=== PATIENT | female | born 1960 | race Caucasian/White ===

== ENCOUNTER 2023-04-20 07:06 | Outpatient (RCR) | payer OTHER, SELFPAY | END 2023-05-07 08:12 | disposition home or self-care (01) | LOC: CR 07:06 | PROVIDERS: Visit Provider Internal Medicine Cardiovascular Disease | DX: I25.10 Atherosclerotic heart disease of native coronary artery without angina pectoris (principal); Z98.61 Coronary angioplasty status ==

== ENCOUNTER 2024-06-09 17:20 | Observation (INO) | payer OTHER, SELFPAY ==
[2024-06-09] VITALS (12 sets, daily range): BP systolic 113–180; BP diastolic 73–97; PULSE 65–88; TEMP 36.4–36.6; O2SAT 94–98; BMI 61.1; BMI 61.0
--- NOTE | 2024-06-09 17:43 | ECG_ITS ---
[facility] Test Date: 2024-06-09 Pat Name: TABBY VENCES Department: Room: - Gender: Female [employer] Assessment: : 1960 Requested By: [id number] Order Number: [id number] Reading MD: JOSELITO BRUNO Measurements Intervals [place] Rate: 83 P: 26 VA: 214 QRS: 42 QRSD: 86 T: 69 QT: 384 QTc: 424 Interpretive Statements 1100 Sinus rhythm 1570 with occasional ventricular premature complexes 2231 First degree AV block 4068 Nonspecific Twave abnormality 8102 Low QRS voltage in chest leads 9150 abnormal ECG Electronically Signed On 06-11-2024 7:39:18 EST by JOSELITO BRUNO
--- OUTSIDE RECORDS SUMMARY | 2024-06-09 17:43 | XMS_ITS | CCD ---
Author Organization [facility] Care Team Providers Care Equal Opportunity Counselor Name Role Phone PATRICK YOUSIF Admitting Unavailable PATRICK YOUSIF Attending Unavailable ANABEL MEJIA Referring Unavailable ANABEL MEJIA Primary Care Unavailable [place] Procedure Practitioner Unavailab PATRICK Mullins Surgeon Unavailable JACOB, DEANNA Admitting Unavailable JACOBDEANNA GUSMAN Attending Unavailable MISC, DR GARRIDO Primary Care Unavailable KATIE JAVED Admitting Unavailable KATIE JAVED Consulting Unavailable KATIE JAVED Attending Unavailable TONAC, DR GARRIDO Primary Care Unavailable SALO, DR BRODIE Mcmahon Admitting Unavailable SALO, DR BRODIE Mcmahon Consulting Unavailable SALO, DR BRODIE Mcmahon Attending Unavailable [facility] Primary Care Unava ilMaycol Muller Consulting Unavailable MISC, DR GARRIDO Primary Care Unavailable JACOBDEANNA GUSMAN Admitting Unavailable JACOBDEANNA GUSMAN Attending Unavailable EBRAHEIMESTER Admitting Unavailable EBRAHEIM, ESTER Attending Unavailable EBDESEAN STEELIL Surgeon Unavailable MICHELLE BLACK Primary Care Unavailable MICHELLE BLACK Referring Unavailable [place] Procedure Practitioner Unavailab MD Ru Fabian Jr Emergency Provider DO Jesse Lombardo Admit Provider DO Jesse Lombardo Attending Provider LUKE Blake Primary Care Provider Milton Blake Primary Care Unavailable Jesse Lombardo Attending Unavailable Jesse Lombardo Admitting Unavailable [place] MANAGER PACKAGING-Milton MULLEN Primary Care Provid er MILTON BLAKE Referring Unavailable MILTON BLAKE Primary Care Unavailable MILTON BLAKE Attending Unavailable MILTON BLAKE Referring Unavailable MILTON BLAKE Primary Care Unavailable MILTON BLAKE Attending Unavailable MILTON BLAKE Referring Unavailable MILTON BLAKE Primary Care Unavailable MILTON BLAKE Attending Unavailable MILTON BLAKE Referring Unavailable MILTON BLAKE Primary Care Unavailable Allergies Allergy Classification Reported Allergen(s) Allergy Type Date of Onset Reaction(s) Facility (2 sources) Aloe Extract Drug Allergy 5 [facility] Repository (3 sources) diphenhydrAMINE ; Translations: [BENADRYL] Drug Allergy 3 [facility] Repository (6 sources) Latex; Translations: [LATEX] Drug allergy (disorder) 4 Difficulty Breathing [facility] Repository (1 source) hep b vaccine; Translations: [Unknown] Propensity to adverse reactions (disorder) 4 [facility] Repository (1 source) Garlic preparation Drug Allergy [address] [facility] Repository (3 sources) strawberry allergenic extract; Translations: [STRAWBERRY] Drug Allergy [address] [facility] Repository (1 source) Hepatitis B Virus Vaccine,Recb Drug allergy (disorder) [address] [facility] Repository (13 sources) HEPATITIS B VIRUS VACCINE; Translations: [HEPATITIS B VIRUS VACCINE] Propensity to adverse reactions (disorder) 0 Anaphylaxis [facility] Repository (12 sources) diphenhydrAMINE ; Translations: [diphenhydramin e] Drug Allergy 6 Anaphylaxis [facility] (1 source) Latex Drug allergy (disorder) 3 [facility] Repository (11 sources) Aloe vera preparation; Translations: [ALOE VERA] Drug Allergy [address] [facility] (10 sources) Coconut Oil; Translations: [COCONUT OIL] Drug Allergy 1 [facility] (10 sources) Hepatitis B Surface Antigen Vaccine; Translations: [HEPATITIS B VIRUS VACCINE, RECOMBINANT] Drug Allergy 6 [facility] (8 sources) Latex Propensity to adverse reactions to drug 6 Shortness Of Breath [facility] (10 sources) Silver Nitrate; Translations: [SILVER NITRATE] Drug Allergy 1 [facility] (8 sources) strawberry allergenic extract Drug Allergy 0 Shortness Of Breath [facility] (9 sources) diphenhydrAMINE ; Translations: [DIPHENHYDRAMIN E HCL] Drug Allergy 5 Other (See Comments), Anaphylaxis [facility] (9 sources) Hepatitis B Surface Antigen Vaccine; Translations: [HEPATITIS B VACC-CPG 1018 (PF)] Drug Allergy 4 Other (See Comments) [facility] (5 sources) Ethinyl Estradiol / Levonorgestrel; Translations: [LEVONORGESTREL -ETHINYL ESTRAD] Drug Allergy 4 [facility] Medications Current Medications Medication Drug Class(es) Dates Sig (Normalized) Sig (Original) [id number] 200 actuat albuterol 0.09 mg/actuat metered dose inhaler (3 sources) beta2-Adrenergic Agonist Start: 08-10-2023 End: 09-09-2023 take 2 puff(s) by inhalation every six hours as needed for wheezing albuterol (PROVENTIL HFA;VENTOLIN HFA) 90 mcg/actuation inhaler Indications: Upper respiratory tract infection, unspecified type Inhale 2 puffs every 6 (six) hours as needed for wheezing for up to 30 days. 18 g 0 08/10/2023 09/09/2023 Active aspirin 81 mg oral tablet (11 sources) Platelet Aggregation Inhibitor, Nonsteroidal Anti-inflammatory Drug Start: 02-03-2023 take 81 mg by mouth once daily Aspirin Active 81 MG PO Daily February 03, 2023 12:00am End: 08-10-2023 take 1 tablet by mouth in the morning aspirin 81 mg Take 1 tablet (81 mg total) by mouth in the morning. Active atorvastatin 40 mg oral tablet (8 sources) HMG-CoA Reductase Inhibitor Start: 02-04-2023 End: 10-04-2023 take 1 tablet by mouth in the morning atorvastatin (LIPITOR) 40 mg tablet Indications: Mixed hyperlipidemia Take 1 tablet (40 mg total) by mouth in the morning. 90 tablet 1 10/04/2023 Active azithromycin 250 mg oral tablet (1 source) Macrolide Antimicrobial Start: 08-10-2023 End: 08-14-2023 azithromycin (ZITHROMAX) 250 mg tablet Indications: Acute non-recurrent maxillary sinusitis Take 2 tablets the first day, then 1 tablet daily for 4 days. 6 tablet 0 08/10/2023 08/14/2023 Active blood-glucose meter (glucose monitoring kit) kit (8 sources) Start: 03-03-2023 blood-glucose meter (glucose monitoring kit) kit Indications: Type 2 diabetes mellitus with hyperglycemia, without long-term current use of insulin ([facility]) Use as instructed 1 each 03/03/2023 Active Start: 03-03-2023 blood-glucose meter (glucose monitoring kit) kit Indications: Type 2 diabetes mellitus with hyperglycemia, without long-term current use of insulin ([facility]) Use as instructed 1 each 0 03/03/2023 Active cholecalciferol 0.05 mg oral tablet (1 source) Vitamin D Start: 02-03-2023 take 1 tablet by mouth once daily Cholecalciferol (Vitamin D3) (Vitamin D3) 50 mcg (2,000 unit) Tablet Active 50 MCG PO Daily February 03, 2023 12:00am cholecalciferol, vitamin D3, (VITAMIN D3 ORAL) (5 sources) take 25 ug by mouth once daily cholecalciferol, vitamin D3, (VITAMIN D3 ORAL) Take 25 mcg by mouth daily. 0 Active fexofenadine hydrochloride 30 mg oral tablet (9 sources) Histamine-1 Receptor Antagonist Start: 02-03-2023 take 30 mg by mouth once daily Fexofenadine Active 30 MG PO 1 time daily February 03, 2023 12:00am take 1 tablet by mouth in the mo rning fexofenadine (KAREN) 180 mg tablet Take 1 tablet (180 mg total) by mouth in the morning. Active furosemide 40 mg oral tablet (14 sources) Loop Diuretic Start: 04-10-2024 take 1 tablet by mouth once daily furosemide (LASIX) 40 mg tablet Indications: Bilateral lower extremity edema TAKE 1 TABLET BY MOUTH DAILY 90 tablet 1 04/10/2024 Active Start: 02-03-2023 End: 10-04-2023 take 1 tablet by mouth once daily furosemide (LASIX) 40 mg tablet Indications: Bilateral lower extremity edema TAKE 1 TABLET BY MOUTH DAILY 90 tablet 1 10/04/2023 Active gabapentin 100 mg oral capsule (4 sources) Anti-epileptic Agent Start: 06-06-2024 take 1 capsule by mouth three times daily gabapentin (NEURONTIN) 100 mg capsule Indications: Neuropathy TAKE 1 CAPSULE BY MOUTH THREE TIMES DAILY 270 capsule 1 06/06/2024 Active Start: 04-10-2024 End: 06-06-2024 take 1 capsule by mouth three times daily gabapentin (NEURONTIN) 100 mg capsule Indications: Neuropathy Take 1 capsule (100 mg total) by mouth 3 (three) times a day. 90 capsule 04/10/2024 06/06/2024 Discontinued hydrOXYzine hydrochloride 10 mg oral tablet (4 sources) Antihistamine Start: 04-10-2024 take 1 tablet by mouth every eight hours as needed hydrOXYzine (ATARAX) 10 mg tablet Indications: Itching Take 1 tablet (10 mg total) by mouth every 8 (eight) hours as needed for itching. 90 tablet 1 04/10/2024 Active Start: 10-04-2023 take 1 tablet by catherine th every eight hours as needed hydrOXYzine (ATARAX) 10 mg tablet Indications: Itching Take 1 tablet (10 mg total) by mouth every 8 (eight) hours as needed for itching. 30 tablet 1 10/04/2023 Active isopropyl alcohol 0.7 ml/ml medicated pad (8 sources) Start: 03-03-2023 alcohol swabs pads, medicated Indications: Type 2 diabetes mellitus with hyperglycemia, without long-term current use of insulin ([facility]) Apply 1 Pad topically in the morning and 1 Pad before bedtime. 100 each 3 03/03/2023 Active losartan potassium 25 mg oral tablet (11 sources) Angiotensin 2 Receptor Fouzia Start: 04-10-2024 take 1 tablet by mouth in the morning losartan (COZAAR) 25 mg tablet Indications: Benign essential HTN Take 1 tablet (25 mg total) by mouth in the morning. 90 tablet 04/10/2024 Active Start: 02-04-2023 End: 10-04-2023 take 1 tablet by mouth in the morning losartan (COZAAR) 25 mg tablet Indications: Benign essential HTN Take 1 tablet (25 mg total) by mouth in the morning. 90 tablet 0 10/04/2023 Active meloxicam 15 mg oral tablet (11 sources) Nonsteroidal Anti-inflammatory Drug Start: 04-10-2024 take 1 tablet by mouth in the morning meloxicam (MOBIC) 15 mg tablet Indications: Osteoarthritis of multiple joints, unspecified osteoarthritis type Take 1 tablet (15 mg total) by mouth in the morning. 90 tablet 1 04/10/2024 Active Start: 12-21-2022 End: 10-04-2023 take 1 tablet by mouth in the morning meloxicam (MOBIC) 15 mg tablet Indications: Osteoarthritis of multiple joints, unspecified osteoarthritis type Take 1 tablet (15 mg total) by mouth in the morning. 90 tablet 0 10/04/2023 Active 24 hr metoprolol succinate 25 mg extended release oral tablet (11 sources) beta-Adrenergic Fouzia Start: 04-10-2024 take 1 tablet by mouth every twenty-four hours in the morning metoprolol succinate XL (TOPROL XL) 25 mg 24 hr tablet Indications: Benign essential HTN TAKE 1 TABLET BY MOUTH IN THE MORNING 90 tablet 1 04/10/2024 Active Start: 03-29-2023 End: 10-04-2023 take 1 tablet by mouth every twenty-four hours in the morning metoprolol succinate XL (TOPROL XL) 25 mg 24 hr tablet Indications: Benign essential HTN TAKE 1 TABLET BY MOUTH IN THE MORNING 90 tablet 0 10/04/2023 Active Start: 02-03-2023 take 25 mg by mouth once daily Metoprolol Succinate Active 25 MG PO 1 time daily February 03, 2023 12:00am nitroglycerin 0.4 mg sublingual tablet (9 sources) Nitrate Vasodilator Start: 02-04-2023 nitroglyce rin (NITROSTAT) 0.4 MG SL tablet 1 tablet (0.4 mg total). 02/04/2023 Active Start: 02-04-2023 Nitroglycerin Active 0.4 MG SUBLINGUAL Q5M February 04, 2023 12:00am potassium chloride 10 meq extended release oral tablet (11 sources) Start: 04-10-2024 potassium chlo ride (K-TAB,KLOR-CON) 10 MEQ CR tablet Indications: Benign essential HTN , Hypokalemia Take 1 tablet (10 mEq total) by mouth in the morning. 90 tablet 2 04/10/2024 Active Start: 04-08-2023 End: 08-01-2023 potassium chloride (K-TAB,KL OR-CON) 10 MEQ CR tablet Indications: Benign essential HTN , Hypokalemia TAKE 1 TABLET BY MOUTH EVERY MORNING 90 tablet 0 08/01/2023 Active Start: 02-03-2023 End: 02-04-2023 take 10 mEq by mouth once daily Potassium Chloride Active 10 MEQ PO 1 time daily February 04, 2023 4:32pm rosuvastatin calcium 10 mg oral tablet (4 sources) HMG-CoA Reductase Inhibitor Start: 04-10-2024 take 1 tablet by mouth once daily rosuvastatin (CRESTOR) 10 mg tablet Indications: Mixed hyperlipidemia Take 1 tablet (10 mg total) by mouth nightly. 90 tablet 1 04/10/2024 Active Start: 02-03-2023 End: 02-04-2023 take 20 mg by mouth once daily Rosuvastatin Discontinu ed 20 MG PO 1 time daily February 03, 2023 12:00am February 04, 2023 4:59pm semaglutide (OZEMPIC) 0.25 m g or 0.5 mg (2 mg/3 mL) pen injector (7 sources) Start: 04-26-2024 semaglutide (O ZEMPIC) 0.25 mg or 0.5 mg (2 mg/3 mL) pen injector Indications: Type 2 diabetes mellitus with hyperglycemia, without long-term current use of insulin ([facility]) Inject 0.5 mg under the skin every 7 days. 12 mL 3 04/26/2024 Active Start: 10-04-2023 End: 04-26-2024 semaglutide (OZEMPIC) 0.25 m g or 0.5 mg (2 mg/3 mL) pen injector Indications: Type 2 diabetes mellitus with hyperglycemia, without long-term current use of insulin ([facility]) Inject 0.5 mg under the skin every 7 days. 12 mL 3 10/04/2023 04/26/2024 Discontinued (Reorder) Start: 10-04-2023 semaglutide (O ZEMPIC) 0.25 mg or 0.5 mg (2 mg/3 mL) pen injector Indications: Type 2 diabetes mellitus with hyperglycemia, without long-term current use of insulin ([facility]) Inject 0.5 mg under the skin every 7 days. 12 mL 3 10/04/2023 Active Start: 10-04-2023 End: 10-04-2023 semaglutide (OZEMPIC) 0.25 m g or 0.5 mg (2 mg/3 mL) pen injector Indications: Type 2 diabetes mellitus with hyperglycemia, without long-term current use of insulin ([facility]) Inject 0.5 mg under the skin every 7 days. 3 mL 1 10/04/2023 10/04/2023 Discontinued (Reorder) ticagrelor 90 mg oral tablet (6 sources) Start: 02-04-2023 take 1 tablet by mouth in the morning, then take 1 tablet by mouth at bedtime BRILINTA 90 mg tablet Take 1 tablet (90 mg total) by mouth in the morning and 1 tablet (90 mg total) before bedtime. 0 02/04/2023 Active Completed/Discontinued Medications Medication Drug Class(es) Dates Sig (Normalized) Sig (Original) amLODIPine 5 mg oral tablet (1 source) Dihydropyridine Calcium Channel Fouzia Start: 02-03-2023 End: 02-04-2023 take 5 mg by mouth once daily Amlodipine Discontinued 5 MG PO 1 time daily February 03, 2023 12:00am February 04, 2023 4:59pm betamethasone 1 mg/ml topical cream (2 sources) Corticosteroid Start: 03-03-2023 End: 08-10-2023 betamethasone valerate (VALISONE) 0.1 % cream Indications: Eczema, unspecified type Apply 1 Application topically in the morning and 1 Application before bedtime. 45 g 2 03/03/2023 08/10/2023 Discontinued (Therapy completed) FLUoxetine 60 mg oral tablet (8 sources) Serotonin Reuptake Inhibitor Start: 08-10-2023 End: 10-04-2023 take 1 tablet by mouth in the morning FLUoxetine (PROzac) 60 MG tablet Indications: Mixed anxiety and depressive disorder Take 1 tablet (60 mg total) by mouth in the morning. 90 tablet 1 08/10/2023 10/04/2023 Discontinued (Patient Stopped On Own) Start: 03-31-2023 End: 08-10-2023 take 1 capsule by mouth in the morning FLUoxetine (PROzac) 40 mg capsule Indications: Mixed anxiety and depressive disorder TAKE 1 CAPSULE BY MOUTH IN THE MORNING 90 capsule 0 08/10/2023 08/10/2023 Discontinued Start: 02-03-2023 take 10 mg by mouth once daily Fluoxetine Active 10 MG PO 1 time daily February 03, 2023 12:00am 3 ml liraglutide 6 mg/ml pen injector (8 sources) GLP-1 Receptor Agonist Start: 08-30-2023 End: 10-04-2023 liraglutide (VICTOZA 2-MELLY) 0.6 mg/0.1 mL (18 mg/3 mL) pen injector Indications: Type 2 diabetes mellitus with hyperglycemia, without long-term current use of insulin ([facility]) INJECT 0.3 mls SUBCUTANEOUSLY IN THE MORNING 3 mL 4 08/31/2023 10/04/2023 Discontinued (Ineffective) Start: 05-16-2023 End: 08-30-2023 liraglutide (VICTOZA 3-MELLY) 0.6 mg/0.1 mL (18 mg/3 mL) pen injector Indications: Type 2 diabetes mellitus with hyperglycemia, without long-term current use of insulin ([facility]) Inject 0.3 mL (1.8 mg total) under the skin in the morning. 3 mL 1 08/10/2023 08/30/2023 Discontinued predniSONE 10 mg oral tablet (4 sources) Start: 08-10-2023 End: 10-04-2023 predniSONE (DELTASONE) 10 mg tablet Indications: Upper respiratory tract infection, unspecified type Take 1 tablet (10 mg total) by mouth See Admin Instructions. 1 tab 2x daily x3 days, 1 tab daily x3 days, 1/2 tablet daily x4 days 11 tablet 0 08/10/2023 10/04/2023 Discontinued (Therapy completed) Problems Active Problems Problem Classification Problem Date Documented Da te Episodic/Chronic Acute myocardial infarction (10 sources) Myocardial infarction; Translations: [ST elevation (STEMI) myocardial infarction involving other coronary artery of inferior wall] Onset: 02-03-2023 02-03-2023 Chronic Anxiety disorders (2 sources) Mixed anxiety and depressive disorder; Translations: [Other specified anxiety disorders] Onset: 08-10-2023 08-10-2023 Chronic Chronic obstructive pulmonary disease and bronchiectasis (1 source) Chronic obstructive pulmonary disease, unspecified; Translations: [COPD UNSPECIFIED] Onset: 10-01-2021 Chronic Congestive heart failure; nonhypertensive (1 source) Heart failure, unspecified; Translations: [HEART FAILURE UNSPECIFIED] Onset: 10-01-2021 Chronic Coronary atherosclerosis and other heart disease (20 sources) Coronary atherosclerosis; Translations: [Atherosclerotic heart disease of [place] coronary artery without angina pectoris] Onset: 12-27-2020 12-27-2020 Chronic Diabetes mellitus with complications (6 sources) Type 2 diabetes mellitus; Translations: [Type 2 diabetes mellitus with hyperglycemia] Onset: 10-04-2023 08-10-2023 Chronic Disorders of lipid metabolism (3 sources) Mixed hyperlipidemia; Translations: [Mixed hyperlipidemia] Onset: 10-04-2023 08-10-2023 Chronic Essential hypertension (16 sources) Malignant hypertension; Translations: [Essential (primary) hypertension] Onset: 12-27-2020 02-03-2023 Chronic Fluid and electrolyte disorders (2 sources) Hypokalemia; Translations: [Hypokalemia] Onset: 04-10-2024 07-31-2023 Episodic Nutritional deficiencies (3 sources) Vitamin D deficiency; Translations: [Vitamin D deficiency, unspecified] Onset: 08-10-2023 08-10-2023 Chronic Osteoarthritis (6 sources) Arthritis; Translations: [Unspecified osteoarthritis, unspecified site] Onset: 02-03-2023 02-03-2023 Chronic Other aftercare (1 source) superintendent container terminal (current) use of aspirin; Translations: [TRACK OILER CURRENT USE OF ASPIRIN] Onset: 10-01-2021 Episodic Other aftercare (1 source) Other intermediate frame tender (current) drug therapy; Translations: [OTH HALF-WAY CURRENT DRUG THERAPY] Onset: 10-01-2021 Episodic Other inflammatory condition of skin (1 source) Itching ; Translations: [Pruritus, unspecified] 10-04-2023 Episodic Other lower respiratory disease (3 sources) Shortness of breath; Translations: [SHORTNESS OF BREATH] Onset: 09-29-2021 Episodic Other nervous system disorders (1 source) Polyneuropathy, unspecified; Translations: [Polyneuropathy, unspecified] Onset: 04-10-2024 Chronic Other nervous system disorders (1 source) Neuropathy; Translations: [Polyneuropathy, unspecified] 06-05-2024 Chronic Other nutritional; endocrine; and metabolic disorders (8 sources) Morbid obesity; Translations: [Morbid (severe) obesity due to excess calories] Onset: 08-10-2023 02-03-2023 Chronic Other nutritional; endocrine; and metabolic disorders (2 sources) Morbid (severe) obesity due to excess calories; Translations: [Morbid obesity] Onset: 02-03-2023 02-04-2023 Chronic Other nutritional; endocrine; and metabolic disorders (16 sources) Severe obesity; Translations: [Morbid (severe) obesity due to excess calories] Onset: 12-27-2020 12-27-2020 Chronic Residual codes; unclassified (3 sources) Bilateral lower limb edema; Translations: [Localized edema] 07-31-2023 Episodic Substance-related disorders (1 source) Nicotine dependence, cigarettes, uncomplicated; Translations: [NICOTINE DEPEND CIGARETTES UNCOMP] Onset: 10-01-2021 Chronic Unclassified (3 sources) CONTACT W/AND (SUSP) EXPOS COVID-19; Translations: [CONTACT W/AND (SUSP) EXPOS COVID-19] Onset: 07-10-2021 Past or Other Problems Problem Classification Problem Date Documented Da te Episodic/Chronic Cardiac dysrhythmias (8 sources) Palpitations; Translations: [Palpitations] Onset: 12-27-2020 12-27-2020 Episodic Coronary atherosclerosis and other heart disease (10 sources) Presence of coronary angioplasty implant and graft; Translations: [Percutaneous transluminal coronary angioplasty status] Onset: 12-27-2020 02-04-2023 Episodic Joint disorders and dislocations; trauma-related (4 sources) Other tear of lateral meniscus, current injury, right knee, subsequent encounter; Translations: [OTH TEAR LAT MENSC CURR RT KNEE SUB] Onset: 07-13-2021 Episodic Mood disorders (8 sources) Mood disorders Onset: 03-03-2023 Resolved: 04-10-2024 03-03-2023 Nonspecific chest pain (8 sources) Precordial pain; Translations: [Precordial pain] Onset: 12-27-2020 12-27-2020 Episodic Other diseases of veins and lymphatics (8 sources) Disorder of vein; Translations: [Disorder of vein, unspecified] Onset: 07-09-2014 12-21-2022 Episodic Other inflammatory condition of skin (1 source) Pruritus, unspecified; Translations: [Pruritus, unspecified] Onset: 10-04-2023 Episodic Other lower respiratory disease (8 sources) Dyspnea; Translations: [Dyspnea, unspecified] Onset: 07-09-2014 12-21-2022 Episodic Other screening for suspected conditions (not mental disorders or infectious disease) (16 sources) Thallium stress test abnormal; Translations: [Abnormal result of other cardiovascular function study] Onset: 07-09-2014 01-21-2021 Episodic Other upper respiratory infections (4 sources) Acute maxillary sinusitis; Translations: [Acute maxillary sinusitis, unspecified] Onset: 08-10-2023 08-10-2023 Episodic Phlebitis; thrombophlebitis and thromboembolism (18 sources) Deep venous thrombosis of lower extremity; Translations: [Acute embolism and thrombosis of right femoral vein] Onset: 12-21-2022 02-03-2023 Episodic Residual codes; unclassified (1 source) Localized edema; Translations: [Localized edema] Onset: 10-04-2023 Episodic Unclassified (1 source) CONTACT W/AND (SUSP) EXPOS COVID-19; Translations: [CONTACT W/AND (SUSP) EXPOS COVID-19] Onset: 07-09-2021 Unclassified (8 sources) Onset: 03-03-2023 Resolved: 04-10-2024 03-03-2023 Results Test Name Value Interpretation Reference Range Facility POCT Hemoglobin A1con 2023 HbA1c (Bld) [Mass fraction] 5.9 g/dL 4 - 7 g/dL [facility] Vitamin D 25 hydroxyon 08-10 Vitamin D+Metabolites [Mass/Vol] 27.2 ng/mL Low 30 - 100 ng/mL [facility] Comment on above: Vitamin D status 25 [place] Vitamin D Deficiency <20 ng/mL Insufficiency 20-29 ng/mL Sufficiency 30-100 ng/mL Toxicity >100 ng/mL NOTE: A pediatric reference range has not been established by the parcel contractor of this kit. The [place] [employer] recommends a Vitamin D level of = or >20ng/mL in infants and children. Vitamin D+Metabolites [Mass/ Vol]on 08-10-2023 Interpretation and review of laboratory results Abnormal [facility] VITAMIN D 25 HYD TOT 27.2 ng/mL Low 30-100 [facility] Comment on above: Result Comment: Vitamin D status 25 [place] Vitamin D Deficiency <20 ng/mL Insufficiency 20-29 ng/mL Sufficiency 30-100 ng/mL Toxicity >100 ng/mL NOTE: A pediatric reference range has not been established by the parcel contractor of this kit. The [place] [employer] recommends a Vitamin D level of = or >20ng/mL in infants and children. Performed By: #### [id number] #### [facility] ([id number]) [address] [place] [address], [address] [place] [address] Basic Metabolic Panelon 01-10 Anion gap [Moles/Vol] 9.3 mmol/L Normal 6.0-15.0 [facility] Comment on above: Order Comment: FASTI NG Y Performed By: #### H S TROP #### [facility] [address] [id number] [place] Calcium [Mass/Vol] 8.7 mg/dL Normal 8.6-10.3 [facility] Comment on above: Order Comment: FASTI NG Y Performed By: #### H S TROP #### [facility] [address] [place] [address] [place] Chloride [Moles/Vol] 102 mmol/L Normal 98-107 [facility] Comment on above: Order Comment: FASTI NG Y Performed By: #### H S TROP #### [facility] [address] [place] [address] [place] CO2 [Moles/Vol] 30.1 mmol/L Normal 21.0-31.0 [facility] Comment on above: Order Comment: FASTI NG Y Performed By: #### H S TROP #### [facility] [address] [place] [address] [place] Creatinine [Mass/Vol] 0.99 mg/dL Normal 0.60-1.20 [facility] Comment on above: Order Comment: FASTI NG Y Performed By: #### H S TROP #### [facility] [address] [place] [address] [place] Creatinine Clr Calc Pharmacy 106.23 [facility] Comment on above: Order Comment: FASTI NG Y Performed By: #### H S TROP #### [facility] [address] [place] [address] [place] GFR/1.73 sq M.predicted MDRD (S/P/Bld) [Vol rate/Area] mL/min/{1.73_m2} [facility] Comment on above: Order Comment: FASTI NG Y Performed By: #### H S TROP #### [facility] [address] Glucose [Mass/Vol] 144 mg/dL High 70-100 [facility] Comment on above: Order Comment: FASTI NG Y Result Comment: [place] Glucose Reference Range is dependent on time and content of last meal. Glucose of more than 200 mg/dL in a nonstressed, ambulatory subject supports the diagnosis of Diabetes Mellitus. ADA recommended reference range Performed By: #### H S TROP #### [facility] [address] Potassium [Moles/Vol] 4.4 mmol/L Normal 3.5-5.1 [facility] Comment on above: Order Comment: FASTI NG Y Performed By: #### H S TROP #### [facility] [address] [place] [address] [place] Sodium [Moles/Vol] 137 mmol/L Normal 136-145 [facility] Comment on above: Order Comment: FASTI NG Y Performed By: #### H S TROP #### [facility] [address] [place] [address] [place] Urea nitrogen [Mass/Vol] 22 mg/dL Normal 7-25 [facility] Comment on above: Order Comment: FASTI NG Y Performed By: #### H S TROP #### [facility] [address] [place] [address] [place] Basophils Auto (Bld) [#/Vol] Ordered By: Jesse Lombardo on 02-04-2023 Basophils (Bld) [#/Vol] 0.1 10*3/uL 0.0-0.2 [facility] Basophils/100 WBC Auto (Bld) Ordered By: Jesse Lombardo on 02-04-2023 Basophils/100 WBC (Bld) 0.7 % . [facility] Calcium [Mass/volume] in Ser um or PlasmaOrdered By: Jesse Lombardo on 02-04-2023 Calcium [Mass/Vol] 8.7 mg/dL 8.6-10.3 [facility] Carbon dioxide, total [Moles /volume] in Serum or PlasmaOrdered By: Jesse Lombardo on 02-04-2023 CO2 [Moles/Vol] 30.1 mmol/L 21.0-31.0 [facility] Chloride [Moles/volume] in S patric or PlasmaOrdered By: Jesse Lombardo on 02-04-2023 Chloride [Moles/Vol] 102 mmol/L 98-107 [facility] Cholesterol [Mass/volume] in Serum or PlasmaOrdered By: Jesse Lombardo on 02-04-2023 Cholesterol [Mass/Vol] 208 mg/dL 140-200 [facility] Comment on above: Chol less than 200 m g/dl low riskChol 201-239 mg/dl borderline riskChol 240 mg/dl and greater high risk Cholesterol in LDL Calc [Mas s/Vol]Ordered By: Jesse Lombardo on 02-04-2023 Cholesterol in LDL [Mass/Vol] 115 mg/dL 0-100 [facility] Comment on above: LDL ATP III CLASSIFI CATIONLDL less than 100 mg/dL OptimalLDL 100-129 mg/dL Near or above optimalLDL 130-159 mg/dL Borderline highLDL 160-189 mg/dL HighLDL greater than 189 mg/dL Very high Cholesterol in VLDL Calc [Ma ss/Vol]Ordered By: Jesse Lombardo on 02-04-2023 Cholesterol in VLDL [Mass/Vol] 55 mg/dL [facility] Complete Blood Count Auto Di ffon 02-04-2023 Basophils (Bld) [#/Vol] 0.1 10*3/uL Normal 0.0-0.2 [facility] Comment on above: Result Comment: PERF ORMED BY: [facility] [address] [place] [address] PATHOLOGIST DISEASE EDUCATION SPECIALIST AMOR GREGORY M.D. Performed By: #### H S TROP #### [address] Basophils/100 WBC (Bld) 0.7 % Normal . [facility] Comment on above: Performed By: #### H S TROP #### [address] Eosinophils (Bld) [#/Vol] 0.4 10*3/uL Normal 0.0-0.45 [facility] Comment on above: Performed By: #### H S TROP #### [address] Eosinophils/100 WBC (Bld) 4.3 % Normal . [facility] Comment on above: Performed By: #### H S TROP #### [address] Erythrocyte distribution width (RBC) [Ratio] 16.8 % High 11.9-15.3 [facility] Comment on above: Performed By: #### H S TROP #### [address] Hematocrit (Bld) [Volume fraction] 41.6 % Normal 34.0-46.4 [facility] Comment on above: Performed By: #### H S TROP #### [place] [address] [place] Hemoglobin (Bld) [Mass/Vol] 13.6 g/dL Normal 11.8-15.4 [facility] Comment on above: Performed By: #### H S TROP #### [place] [address] [place] Lymphocytes (Bld) [#/Vol] 2.3 10*3/uL Normal 1.00-4.8 [facility] Comment on above: Performed By: #### H S TROP #### [place] [address] [place] Lymphocytes/100 WBC (Bld) 23.8 % Normal . [facility] Comment on above: Performed By: #### H S TROP #### [address] MCH (RBC) [Entitic mass] 28.4 pg Normal 24.7-34.3 [facility] Comment on above: Performed By: #### H S TROP #### [address] MCV (RBC) [Entitic vol] 86.6 fL Normal 80-100 [facility] Comment on above: Performed By: #### H S TROP #### [address] Mean Corpuscular HGB Conc 32.8 g/dL Normal 32.0-35.0 [facility] Comment on above: Performed By: #### H S TROP #### [address] Monocytes (Bld) [#/Vol] 0.7 10*3/uL Normal 0.0-0.8 [facility] Comment on above: Performed By: #### H S TROP #### [place] [address] [place] Monocytes/100 WBC (Bld) 7.0 % Normal . [facility] Comment on above: Performed By: #### H S TROP #### [address] Neutrophils (Bld) [#/Vol] 6.3 10*3/uL Normal 1.8-7.7 [facility] Comment on above: Performed By: #### H S TROP #### [place] [address] [place] Neutrophils/100 WBC (Bld) 64.2 % Normal . [facility] Comment on above: Performed By: #### H S TROP #### [address] NRBC% 0.1 /100{WBC} Normal 0-0.5 [facility] Comment on above: Performed By: #### H S TROP #### [address] [place] [address] [place] Platelet mean volume (Bld) [Entitic vol] 10.3 fL Normal 6.3-10.7 [facility] Comment on above: Performed By: #### H S TROP #### [facility] [address] [place] [id number] [place] Platelets (Bld) [#/Vol] 203 10*3/uL Normal 150-450 [facility] Comment on above: Performed By: #### H S TROP #### [facility] [address] [place] [address] [place] RBC (Bld) [#/Vol] 4.80 10*6/uL Normal 3.60-5.00 [facility] Comment on above: Performed By: #### H S TROP #### [place] [id number] [place] WBC (Bld) [#/Vol] 9.8 10*3/uL Normal 3.8-11.6 [facility] Comment on above: Performed By: #### H S TROP #### [place] [id number] [facility] Creatinine [Mass/volume] in Serum or PlasmaOrdered By: Jesse Lombardo on 02-04-2023 Creatinine [Mass/Vol] 0.99 mg/dL 0.60-1.20 [facility] ECG 12 lead ECGon 02-04-2023 ECG 12 lead ECG [facility] [place] [address] [place] [address] Electrocardiograph Report Signed Patient: Francisca Kumar MR#: [id number] : 1960 Acct:[id number] Age/Sex: 63 / F ADM Date: 02/03/23 Loc: Room: [address] [place] [address] Type: ADM IN Attending Dr: Jesse Lombardo DO Ordering Provider: Jesse Lombardo DO Date of Service: 02/04/23 ECG/ECG 12 lead ECG: post PCI Copies to: Test Reason : Blood Pressure : / mmHG Vent. Rate : 058 BPM Atrial Rate : 058 BPM P-R Int : 220 ms QRS Dur : 092 ms QT Int : 492 ms P-R-T Axes : 034 074 011 degrees QTc Int : 482 ms Sinus bradycardia with 1st degree AV block Low voltage QRS Septal infarct , age undetermined T wave abnormality, consider inferior ischemia Abnormal ECG No previous ECGs available Confirmed by TRISTA ERICKSON [id number] on 02/04/2023 11:59:39 AM Referred By: Electronically Signed By:VARSHA WESTON MD [facility] Transcribed By: MUS Signed By Jeremiah Weston MD 02/04/23 1159 Normal [facility] echo transthoracicon [facility] echo transthoracic [facility] [place] [address] [place] [address] Echocardiogram Signed Patient: Francisca Kumar MR#: [id number] : 1960 Acct:[id number] Age/Sex: 63 / F ADM Date: 02/03/23 Loc: Room: [address] [place] [address] Type: ADM IN Attending Dr: Jesse Lombardo DO Ordering Provider: Jesse Lombardo DO Date of Service: 02/04/23 [facility] transthoracic: post STEMI Copies to: Chantale Charles MD, [facility] Jesse Lombardo DO Weight: 419 lb Performed By: BARNEY Schaeffer BSA: 2.8 m2 BP: 147/65 mmHg HR: 61 Reason For Study: post STEMI History: CHF, CAD, [place], Cardiac stent, Hypertension Interpretation Summary Mild concentric left ventricular hypertrophy. The LV ejection fraction is 50 %. Severe basal posterolateral wall hypokinesis The left atrium appears mildly dilated. There is no prior echocardiogram noted for this patient. Procedure/Quality: A two-dimensional transthoracic echocardiogram with color flow, Doppler and injection of contrast agent Definity was performed. The study was technically suboptimal in quality due to poor acoustic windows . There is no prior echocardiogram noted for this patient. Left Ventricle: Mild concentric left ventricular hypertrophy. The LV ejection fraction is 50 %. Severe basal posterolateral wall hypokinesis. Left Atrium: The left atrium appears mildly dilated. Right Atrium: The right atrium appears normal in size. Right Ventricle: The right ventricular size, thickness and function are normal. Aortic Valve: The aortic valve is normal in structure and function. Mitral Valve: The mitral valve is normal in structure and function. Tricuspid Valve: The tricuspid valve is normal in structure and function. Pulmonic Valve: The pulmonic valve is not well visualized. Arteries: The aortic root is normal size. Pericardium/Pleura: No pericardial effusion seen. There is no pleural effusion. IVC/Hepatic Viens: The inferior vena cava was not visualized during the exam. Measurements with Normals IVSd: 1.6 cm (0.7-1.1 cm)LVIDd: 6.4 cm (3.7-5.4 cm) LVPWd: 1.3 cm (0.7-1.1 cm)LVIDs: 4.2 cm (2.3-3.6 cm) LA dimension: 4.4 cm (2.3-4.0 cm)Ao root diam: 3.7 cm(2.0-3.6 cm) asc Aorta Diam: 3.2 cm(2.1-3.4cm) Doppler with Normals MV E max miguel a: 54.4 cm/sec(0.8-1.3m/s) MV A max miguel a: 86.5 cm/sec(0.0-0.0m/s) MV E/A: 0.63 (<1.5) MMode/2D Measurements Calculations RVDd: 2.7 cm FS: 34.9 % Ao root area: LVLd ap4: 9.8 cm TAPSE: 2.0 cm EDV(Teich): 10.7 cm2 EDV(MOD-sp4): RV S Miguel A: 207.7 ml 321.0 ml 16.2 cm/sec ESV(Teich): LVLs ap4: 9.2 cm 76.8 ml ESV(MOD-sp4): EF(Teich): 63.0 % 146.0 ml EF(MOD-sp4): 54.5 % __ SV(MOD-sp4): LAV(MOD-sp4): LA A2 area: 23.0 cm2 175.0 ml 45.4 ml LAV(MOD-sp2): LA A4 area: 18.0 cm2 64.1 ml LA length (vol): 5.5 cm LA vol: 63.4 ml LA vol index: 22.9 ml/m2 Doppler Measurements Calculations MV max P.0 mmHg E/E' lat: 8.9 MR max miugel a: 232.1 cm/sec E/E' med: 9.3 MR max P.9 mmHg Transcribed By: SCV Performed At: 02/04/23921 Signed By: Chantale Charles MD, [facility] 02/04/23 1513 Normal [facility] Eosinophils Auto (Bld) [#/Vo l]Ordered By: Jesse Lombardo on 02-04-2023 Eosinophils (Bld) [#/Vol] 0.4 10*3/uL 0.0-0.45 [facility] Eosinophils/100 WBC Auto (Bl d)Ordered By: Jesse Lombardo on 02-04-2023 Eosinophils/100 WBC (Bld) 4.3 % . [facility] Erythrocyte distribution wid th Auto (RBC) [Ratio]Ordered By: Jesse Lombardo on 02-04-2023 Erythrocyte distribution width (RBC) [Ratio] 16.8 % 11.9-15.3 [facility] Glucose [Mass/volume] in Ser um or PlasmaOrdered By: Jesse Lombardo on 02-04-2023 Glucose [Mass/Vol] 144 mg/dL 70-100 [facility] Comment on above: ADA recommended refe rence rangeRandom Glucose Reference Range is dependent on time and content of last meal. Glucose of more than 200 mg/dL in a nonstressed, ambulatory subject supports the diagnosis of Diabetes Mellitus. Hematocrit Auto (Bld) [Volum e fraction]Ordered By: Jesse Lombardo on 02-04-2023 Hematocrit (Bld) [Volume fraction] 41.6 % 34.0-46.4 [facility] Hemoglobin [Mass/volume] in BloodOrdered By: Jesse Lombardo on 02-04-2023 Hemoglobin (Bld) [Mass/Vol] 13.6 g/dL 11.8-15.4 [facility] Leukocytes [#/volume] correc frida for nucleated erythrocytes in Blood by Automated counOrdered By: Jesse Lombardo on 02-04-2023 WBC corrected for nucl RBC Auto (Bld) [#/Vol] 9.8 10*3/uL 3.8-11.6 [facility] Lipid Panelon 02-04-2023 Cholesterol [Mass/Vol] 208 mg/dL High 140-200 [facility] Comment on above: Order Comment: FASTI NG Y Result Comment: Chol less than 200 mg/dl low risk Chol 201-239 mg/dl borderline risk Chol 240 mg/dl and greater high risk Performed By: #### H S TROP #### [facility] [address] Cholesterol in HDL [Mass/Vol] 38 mg/dL Normal 23-92 [facility] Comment on above: Order Comment: IRINEO NG Y Result Comment: HDL CHOL ATP-III CLASSIFICATION Cardiovascular Risk HDL > or equal to 60 mg/dL LOW HDL < 40 mg/dL HIGH Performed By: #### H S TROP #### [facility] [address] Cholesterol.total/Chol esterol in HDL [Mass ratio] 5.5 {ratio} Normal <5.0 [facility] Comment on above: Order Comment: FASTI NG Y Result Comment: PERF ORMED BY: [facility] [address] [place] [address] PATHOLOGIST DISEASE EDUCATION SPECIALIST AMOR GREGORY M.D. Performed By: #### H S TROP #### [facility] [address] [place] [id number] [place] LDL Cholesterol,Calculated 115 mg/dL High 0-100 [facility] Comment on above: Order Comment: RADHAI NG Y Result Comment: LDL ATP III CLASSIFICATION LDL less than 100 mg/dL Optimal LDL 100-129 mg/dL Near or above optimal LDL 130-159 mg/dL Borderline high LDL 160-189 mg/dL High LDL greater than 189 mg/dL Very high Performed By: #### H S TROP #### [facility] [address] Triglyceride w/Reflex 277 mg/dL High 0-149 [facility] Comment on above: Order Comment: IRINEO Aly Result Comment: TRIG ATP III CLASSIFICATION TRIG less than 150 mg/dL Normal TRIG 150-199 mg/dL Borderline high TRIG 200-500 mg/dL High TRIG greater than 500 mg/dL Very high Standard traceable to the Center for Disease Conrtrol and Prevention (CDC) test method. Performed By: #### H S TROP #### [facility] [address] VLDL CHOLESTEROL 55 mg/dL Normal [facility] Comment on above: Order Comment: IRINEO [place] Performed By: #### H S TROP #### [facility] [address] Lymphocytes Auto (Bld) [#/Vo l]Ordered By: Jesse Lombardo on 02-04-2023 Lymphocytes (Bld) [#/Vol] 2.3 10*3/uL 1.00-4.8 [facility] Lymphocytes/100 WBC Auto (Bl d)Ordered By: Jesse Lombardo on 02-04-2023 Lymphocytes/100 WBC (Bld) 23.8 % . [facility] MCH Auto (RBC) [Entitic mass ]Ordered By: Jesse Lombardo on 02-04-2023 MCH (RBC) [Entitic mass] 28.4 pg 24.7-34.3 [facility] MCHC Auto (RBC) [Mass/Vol]Or dered By: Jesse Lombardo on 02-04-2023 MCHC (RBC) [Mass/Vol] 32.8 g/dL 32.0-35.0 [facility] MCV Auto (RBC) [Entitic vol] Ordered By: Jesse Lombardo on 02-04-2023 MCV (RBC) [Entitic vol] 86.6 fL 80-100 [facility] Monocytes Auto (Bld) [#/Vol] Ordered By: Jesse Lombardo on 02-04-2023 Monocytes (Bld) [#/Vol] 0.7 10*3/uL 0.0-0.8 [facility] Monocytes/100 WBC Auto (Bld) Ordered By: Jesse Lombardo on 02-04-2023 Monocytes/100 WBC (Bld) 7.0 % . [facility] Neutrophils Auto (Bld) [#/Vo l]Ordered By: Jesse Lombardo on 02-04-2023 Neutrophils (Bld) [#/Vol] 6.3 10*3/uL 1.8-7.7 [facility] Neutrophils/100 WBC Auto (Bl d)Ordered By: Jesse Lombardo on 02-04-2023 Neutrophils/100 WBC (Bld) 64.2 % . [facility] No Panel InformationOrdered By: Jesse Lombardo on 02-04-2023 Estimated GFR (CKD-EPI) > 60.0 mL/Min [facility] Creatinine Clearance (Chem 106.23 [facility] Nucleated erythrocytes [Pres ence] in Blood by Automated countOrdered By: Jesse Lombardo on 02-04-2023 Nucleated RBC Auto Ql (Bld) 0.1 /100{WBC} 0-0.5 [facility] Platelet mean volume Auto (B ld) [Entitic vol]Ordered By: Jesse Lombardo on 02-04-2023 Platelet mean volume (Bld) [Entitic vol] 10.3 fL 6.3-10.7 [facility] Platelets Auto (Bld) [#/Vol] Ordered By: Jesse Lombardo on 02-04-2023 Platelets (Bld) [#/Vol] 203 10*3/uL 150-450 [facility] Potassium [Moles/volume] in Serum or PlasmaOrdered By: Jesse Lombardo on 02-04-2023 Potassium [Moles/Vol] 4.4 mmol/L 3.5-5.1 [facility] RBC Auto (Bld) [#/Vol]Ordere d By: Jesse Lombardo on 02-04-2023 RBC (Bld) [#/Vol] 4.80 10*6/uL 3.60-5.00 [facility] Serum or plasma anion gap de terminationOrdered By: Jesse Lombardo on 02-04-2023 Anion gap [Moles/Vol] 9.3 mmol/L 6.0-15.0 [facility] Serum or plasma high density lipoprotein (HDL) cholesterol measurementOrdered By: Jesse Lombardo on 02-04-2023 Cholesterol in HDL [Mass/Vol] 38 mg/dL [facility] Comment on above: HDL CHOL ATP-III CLA SSIFICATION Cardiovascular RiskHDL > or equal to 60 mg/dL LOWHDL < 40 mg/dL HIGH Serum or plasma total choles terol/high density lipoprotein (HDL) cholesterol mass ratOrdered By: Jesse Lombardo on 02-04-2023 Cholesterol.total/Chol esterol in HDL [Mass ratio] 5.5 {ratio} <5.0 [facility] Sodium [Moles/volume] in Ser um or PlasmaOrdered By: Jesse Lombardo on 02-04-2023 Sodium [Moles/Vol] 137 mmol/L 136-145 [facility] Triglyceride [Mass/volume] i n Serum or PlasmaOrdered By: Jesse Lombardo on 02-04-2023 Triglyceride [Mass/Vol] 277 mg/dL 0-149 [facility] Comment on above: TRIG ATP III CLASSIF ICATIONTRIG less than 150 mg/dL NormalTRIG 150-199 mg/dL Borderline highTRIG 200-500 mg/dL High TRIG greater than 500 mg/dL Very highStandard traceable to the Center for Disease Conrtrol and Prevention (CDC) test method. Urea nitrogen [Mass/volume] in Serum or PlasmaOrdered By: Jesse Lombardo on 02-04-2023 Urea nitrogen [Mass/Vol] 22 mg/dL 02-02 [facility] WBC Auto (Bld) [#/Vol]Ordere d By: Jesse Lombardo on 02-04-2023 WBC (Bld) [#/Vol] 9.8 10*3/uL 3.8-11.6 [facility] Activated partial thrombopla stin time (aPTT) in platelet poor plasma by coagulation aOrdered By: Ru Johnson on 02-03-2023 aPTT Coag (PPP) [Time] 120.6 s 25.1-36.5 [facility] Comment on above: Results calledat 022 9 on 02/03/23 Alanine aminotransferase [En zymatic activity/volume] in Serum or PlasmaOrdered By: Ru Johnson on 02-03-2023 ALT [Catalytic activity/Vol] 23 U/L [facility] Albumin [Mass/volume] in Ser um or Plasma by Bromocresol green (BCG) dye binding methoOrdered By: Ru Johnson on 02-03-2023 Albumin BCG dye [Mass/Vol] 4.0 g/dL 3.5-5.7 [facility] Alkaline phosphatase [Enzyma tic activity/volume] in Serum or PlasmaOrdered By: Ru Johnson on 02-03-2023 ALP [Catalytic activity/Vol] 119 U/L 34-104 [facility] Aspartate aminotransferase [ Enzymatic activity/volume] in Serum or PlasmaOrdered By: Ru Johnson on 02-03-2023 AST [Catalytic activity/Vol] 18 U/L 13-39 [facility] B-Type Natriuretic Peptideon 02-03-2023 Natriuretic peptide B (Bld) [Mass/Vol] 142.0 pg/mL High 5-100 [facility] Comment on above: Result Comment: PERF ORMED BY: [facility] [address] [place] [address] PATHOLOGIST DISEASE EDUCATION SPECIALIST AMOR GREGORY M.D. Performed By: #### C BC, PTT, BNP, CMP, CK, PT, HS TROP #### [facility] [address] [place], [place] [id number] [facility] Bilirubin.total [Mass/volume ] in Serum or PlasmaOrdered By: Ru Johnson on 02-03-2023 Bilirubin [Mass/Vol] 0.3 mg/dL 0.3-1.0 [facility] Complete Blood Count Auto Di ffon 02-03-2023 Basophils (Bld) [#/Vol] 0.1 10*3/uL Normal 0.0-0.2 [facility] Comment on above: Result Comment: PERF ORMED BY: [facility] [address] [place] [address] PATHOLOGIST DISEASE EDUCATION SPECIALIST AMOR GREGORY M.D. Performed By: #### C BC, PTT, BNP, CMP, CK, PT, HS TROP #### [facility] [address] [place] [id number] [place] Basophils/100 WBC (Bld) 1.0 % Normal . [facility] Comment on above: Performed By: #### C BC, PTT, BNP, CMP, CK, PT, HS TROP #### [address] Eosinophils (Bld) [#/Vol] 0.3 10*3/uL Normal 0.0-0.45 [facility] Comment on above: Performed By: #### C BC, PTT, BNP, CMP, CK, PT, HS TROP #### [address] Eosinophils/100 WBC (Bld) 2.0 % Normal . [facility] Comment on above: Performed By: #### C BC, PTT, BNP, CMP, CK, PT, HS TROP #### [address] Erythrocyte distribution width (RBC) [Ratio] 16.6 % High 11.9-15.3 [facility] Comment on above: Performed By: #### C BC, PTT, BNP, CMP, CK, PT, HS TROP #### [address] Hematocrit (Bld) [Volume fraction] 45.2 % Normal 34.0-46.4 [facility] Comment on above: Performed By: #### C BC, PTT, BNP, CMP, CK, PT, HS TROP #### [address] Hemoglobin (Bld) [Mass/Vol] 15.1 g/dL Normal 11.8-15.4 [facility] Comment on above: Performed By: #### C BC, PTT, BNP, CMP, CK, PT, HS TROP #### [address] Lymphocytes (Bld) [#/Vol] 2.0 10*3/uL Normal 1.00-4.8 [facility] Comment on above: Performed By: #### C BC, PTT, BNP, CMP, CK, PT, HS TROP #### [address] Lymphocytes/100 WBC (Bld) 15.2 % Normal . [facility] Comment on above: Performed By: #### C BC, PTT, BNP, CMP, CK, PT, HS TROP #### [address] MCH (RBC) [Entitic mass] 28.5 pg Normal 24.7-34.3 [facility] Comment on above: Performed By: #### C BC, PTT, BNP, CMP, CK, PT, HS TROP #### [address] MCV (RBC) [Entitic vol] 85.2 fL Normal 80-100 [facility] Comment on above: Performed By: #### C BC, PTT, BNP, CMP, CK, PT, HS TROP #### [address] Mean Corpuscular HGB Conc 33.4 g/dL Normal 32.0-35.0 [facility] Comment on above: Performed By: #### C BC, PTT, BNP, CMP, CK, PT, HS TROP #### [address] Monocytes (Bld) [#/Vol] 0.6 10*3/uL Normal 0.0-0.8 [facility] Comment on above: Performed By: #### C BC, PTT, BNP, CMP, CK, PT, HS TROP #### [address] Monocytes/100 WBC (Bld) 4.3 % Normal . [facility] Comment on above: Performed By: #### C BC, PTT, BNP, CMP, CK, PT, HS TROP #### [address] Neutrophils (Bld) [#/Vol] 10.1 10*3/uL High 1.8-7.7 [facility] Comment on above: Performed By: #### C BC, PTT, BNP, CMP, CK, PT, HS TROP #### [address] Neutrophils/100 WBC (Bld) 77.5 % Normal . [facility] Comment on above: Performed By: #### C BC, PTT, BNP, CMP, CK, PT, HS TROP #### [address] NRBC% 0.1 /100{WBC} Normal 0-0.5 [facility] Comment on above: Performed By: #### C BC, PTT, BNP, CMP, CK, PT, HS TROP #### [address] Platelet mean volume (Bld) [Entitic vol] 9.9 fL Normal 6.3-10.7 [facility] Comment on above: Performed By: #### C BC, PTT, BNP, CMP, CK, PT, HS TROP #### [address] Platelets (Bld) [#/Vol] 207 10*3/uL Normal 150-450 [facility] Comment on above: Performed By: #### C BC, PTT, BNP, CMP, CK, PT, HS TROP #### [address] RBC (Bld) [#/Vol] 5.30 10*6/uL High 3.60-5.00 [facility] Comment on above: Performed By: #### C BC, PTT, BNP, CMP, CK, PT, HS TROP #### [address] WBC (Bld) [#/Vol] 13.1 10*3/uL High 3.8-11.6 [facility] Comment on above: Performed By: #### C BC, PTT, BNP, CMP, CK, PT, HS TROP #### [address] Comprehensive Metabolic Pane abdiaziz 02-03-2023 Albumin [Mass/Vol] 4.0 g/dL Normal 3.5-5.7 [facility] Comment on above: Performed By: #### C BC, PTT, BNP, CMP, CK, PT, HS TROP #### [address] [address] [place] Albumin/Globulin [Mass ratio] 1.3 {ratio} Normal [facility] Comment on above: Performed By: #### C BC, PTT, BNP, CMP, CK, PT, HS TROP #### [facility] [address] ALP [Catalytic activity/Vol] 119 U/L High 34-104 [facility] Comment on above: Performed By: #### C BC, PTT, BNP, CMP, CK, PT, HS TROP #### [facility] [address] ALT [Catalytic activity/Vol] 23 U/L Normal 7-52 [facility] Comment on above: Performed By: #### C BC, PTT, BNP, CMP, CK, PT, HS TROP #### [address] Anion gap [Moles/Vol] Not performed Normal 6.0-15.0 [facility] Comment on above: Performed By: #### C BC, PTT, BNP, CMP, CK, PT, HS TROP #### [address] AST [Catalytic activity/Vol] 18 U/L Normal 13-39 [facility] Comment on above: Performed By: #### C BC, PTT, BNP, CMP, CK, PT, HS TROP #### [address] Bilirubin [Mass/Vol] 0.3 mg/dL Normal 0.3-1.0 [facility] Comment on above: Performed By: #### C BC, PTT, BNP, CMP, CK, PT, HS TROP #### [address] Calcium [Mass/Vol] 9.0 mg/dL Normal 8.6-10.3 [facility] Comment on above: Performed By: #### C BC, PTT, BNP, CMP, CK, PT, HS TROP #### [address] Chloride [Moles/Vol] 104 mmol/L Normal 98-107 [facility] Comment on above: Performed By: #### C BC, PTT, BNP, CMP, CK, PT, HS TROP #### [address] CO2 [Moles/Vol] 24.2 mmol/L Normal 21.0-31.0 [facility] Comment on above: Performed By: #### C BC, PTT, BNP, CMP, CK, PT, HS TROP #### [facility] [address] Creatinine [Mass/Vol] 1.11 mg/dL Normal 0.60-1.20 [facility] Comment on above: Performed By: #### C BC, PTT, BNP, CMP, CK, PT, HS TROP #### [address] Creatinine Clr Calc Pharmacy 94.17 [facility] Comment on above: Result Comment: PERF ORMED BY: [place] [address] PATHOLOGIST DISEASE EDUCATION SPECIALIST AMOR GREGORY M.D. Performed By: #### C BC, PTT, BNP, CMP, CK, PT, HS TROP #### [address] GFR/1.73 sq M.predicted MDRD (S/P/Bld) [Vol rate/Area] 56.551 mL/min/{1.73_m2} [facility] Comment on above: Performed By: #### C BC, PTT, BNP, CMP, CK, PT, HS TROP #### [facility] [address] Globulin (S) [Mass/Vol] 3.2 g/dL [facility] Comment on above: Performed By: #### C BC, PTT, BNP, CMP, CK, PT, HS TROP #### [facility] [address] Glucose [Mass/Vol] 164 mg/dL High 70-100 [facility] Comment on above: Result Comment: [facility] Glucose Reference Range is dependent on time and content of last meal. Glucose of more than 200 mg/dL in a nonstressed, ambulatory subject supports the diagnosis of Diabetes Mellitus. ADA recommended reference range Performed By: #### C BC, PTT, BNP, CMP, CK, PT, HS TROP #### [facility] [address] Potassium Normal 3.5-5.1 [facility] Comment on above: Result Comment: Spec imen hemolyzed, redraw requested Results called at 0213 on 02/03/23 Performed By: #### C BC, PTT, BNP, CMP, CK, PT, HS TROP #### [address] Protein [Mass/Vol] 7.2 g/dL Normal 6.4-8.9 [facility] Comment on above: Performed By: #### C BC, PTT, BNP, CMP, CK, PT, HS TROP #### [address] Sodium [Moles/Vol] 138 mmol/L Normal 136-145 [facility] Comment on above: Performed By: #### C BC, PTT, BNP, CMP, CK, PT, HS TROP #### [address] Urea nitrogen [Mass/Vol] 27 mg/dL High 7-25 [facility] Comment on above: Performed By: #### C BC, PTT, BNP, CMP, CK, PT, HS TROP #### [place] [address] [place] Creatine Kinaseon 02-03-2023 CK [Catalytic activity/Vol] 51 U/L Normal [facility] Comment on above: Performed By: #### C BC, PTT, BNP, CMP, CK, PT, HS TROP #### [place] [address] [place] Creatine kinase [Enzymatic a ctivity/volume] in Serum or PlasmaOrdered By: Ru Johnson on 02-03-2023 CK [Catalytic activity/Vol] 51 U/L [facility] ECG 12 lead ECGon 02-03-2023 ECG 12 lead ECG [facility] [place] [address] [place] [address] Electrocardiograph Report Signed Patient: Francisca Kumar MR#: [id number] : 1960 Acct:[id number] Age/Sex: 63 / F ADM Date: 02/03/23 Loc: Room: Type: [facility] Attending Dr: Jesse Lombardo DO Ordering Provider: Ru Johnson Jr, MD Date of Service: 02/03/23 ECG/ECG 12 lead ECG: STEMI/CHEST PAIN Copies to: Test Reason : Blood Pressure : / mmHG Vent. Rate : 086 BPM Atrial Rate : 087 BPM P-R Int : 232 ms QRS Dur : 096 ms QT Int : 382 ms P-R-T Axes : 063 092 101 degrees QTc Int : 457 ms Sinus rhythm with 1st degree AV block with occasional premature ventricular complexes Low voltage QRS ST elevation, consider inferolateral injury or acute infarct ACUTE [place] / STEMI Consider right ventricular involvement in acute inferior infarct Abnormal ECG No previous ECGs available Confirmed by RU JOHNSON MD ([id number]) on 02/03/2023 2:55:57 AM Referred By: Electronically Signed By:RU JOHNSON MD Transcribed By: MUS Signed By Ru Johnson Jr, MD 0256 Normal [facility] Globulin Calc (S) [Mass/Vol] Ordered By: Ru Johnson on 02-03-2023 Globulin (S) [Mass/Vol] 3.2 g/dL [facility] Laboratory - CoagulationOrde red By: Ru Johnson on 02-03-2023 PT Coag (PPP) [Time] 10.3 s 9.0-12.9 [facility] Natriuretic peptide B [Mass/ Vol]Ordered By: Ru Johnson on 02-03-2023 Natriuretic peptide B (Bld) [Mass/Vol] 142.0 pg/mL 5-100 [facility] Partial Thromboplastin Timeo n 02-03-2023 aPTT Coag (Bld) [Time] 120.6 s Off scale high 25.1-36.5 [facility] Comment on above: Result Comment: Resu lts called at 0229 on 02/03/23 PERFORMED BY: [place] [address] PATHOLOGIST DISEASE EDUCATION SPECIALIST AMOR GREGORY M.D. Performed By: #### H S TROP #### [facility] [address] [place] [address] Platelet poor plasma interna tional normalized ratio (INR) by coagulation assay (relatOrdered By: Ru Johnson on 02-03-2023 INR Coag (PPP) [Relative time] 0.9 {INR} [facility] Comment on above: INR Therapeutic Rang e A) Pre- and Peroperative OAT started two weeks before surgery. NOT HIP SURGERY: 1.5 - 2.5 HIP SURGERY: 2 - 3B) Primary and secondary prevention of venous THROMBOSIS: 2 - 3C) Active venous thrombosis, pulmonary embolismand prevention of recurrent venous thrombosis: 2 - 3D) Prevention of arterial thromboembolismincluding patients with mechanical heart valves: 3 - 4.5 Protein [Mass/volume] in Ser um or PlasmaOrdered By: Ru Johnson on 02-03-2023 Protein [Mass/Vol] 7.2 g/dL 6.4-8.9 [facility] Prothrombin Time INRon 02-03 INR Coag (PPP) [Relative time] 0.9 {INR} Normal [facility] Comment on above: Result Comment: INR Therapeutic Range A) Pre- and Peroperative OAT started two weeks before surgery. NOT HIP SURGERY: 1.5 - 2.5 HIP SURGERY: 2 - 3 B) Primary and secondary prevention of venous THROMBOSIS: 2 - 3 C) Active venous thrombosis, pulmonary embolism and prevention of recurrent venous thrombosis: 2 - 3 D) Prevention of arterial thromboembolism including patients with mechanical heart valves: 3 - 4.5 Performed By: #### C BC, PTT, BNP, CMP, CK, PT, HS TROP #### [facility] [address] [place] [address] PT Coag (PPP) [Time] 10.3 s Normal 9.0-12.9 [facility] Comment on above: Performed By: #### C BC, PTT, BNP, CMP, CK, PT, HS TROP #### [facility] [address] [place] [address] Redraw Potassiumon 3 Potassium [Moles/Vol] 3.9 mmol/L Normal 3.5-5.1 [facility] Comment on above: Order Comment: this redraw -[facility] 0834 Result Comment: PERF ORMED BY: [place] [address] PATHOLOGIST DISEASE EDUCATION SPECIALIST AMOR GREGORY M.D. Performed By: #### R EDRAW K #### [address] Redraw Potassium Normal 3.5-5.1 [facility] Comment on above: Result Comment: Spec imen hemolyzed, redraw requested PERFORMED BY: [place] [address] PATHOLOGIST DISEASE EDUCATION SPECIALIST AMOR GREGORY M.D. Performed By: #### H S TROP #### [address] Serum or plasma albumin/glob ulin mass ratioOrdered By: Ru Johnson on 02-03-2023 Albumin/Globulin [Mass ratio] 1.3 {ratio} [facility] Troponin I High Sensitivityo n 02-03-2023 Troponin I High Sensitivity 42926.0 pg/mL Off scale high 0.0-15.0 [facility] Comment on above: Result Comment: Crit ical Result I_TnIHS_d:85543.0 Called to and read back by: NASIR RUCKER at: 02/03/2023 19:39:12 by:[id number] PERFORMED BY: [place] [address] PATHOLOGIST DISEASE EDUCATION SPECIALIST AMOR GREGORY M.D. Performed By: #### H S TROP #### [facility] [address] [place], [place] [id number] [facility] Troponin I High Sensitivity 12000.0 pg/mL Off scale high 0.0-15.0 [facility] Comment on above: Result Comment: Crit ical Result I_TnIHS_d:61815.0 Called to and read back by: SHASHI CASSIDY at: 02/03/2023 16:52:21 by:[id number] PERFORMED BY: [place] [id number] PATHOLOGIST DISEASE EDUCATION SPECIALIST AMOR GREGORY M.D. Performed By: #### H S TROP #### [place] [address] [place] Troponin I High Sensitivity 78168.5 pg/mL Off scale high 0.0-15.0 [facility] Comment on above: Result Comment: Crit ical Result I_TnIHS_d:46514.5 Called to and read back by: CHARY SAWYER at: 02/03/2023 13:42:23 by:[id number] PERFORMED BY: [place] [address] PATHOLOGIST DISEASE EDUCATION SPECIALIST AMOR GREGORY M.D. Performed By: #### H S TROP #### [place] [address] [place] Troponin I High Sensitivity 22535.3 pg/mL Off scale high 0.0-15.0 [facility] Comment on above: Result Comment: Crit ical Result I_TnIHS_d:09255.3 Called to and read back by: CHARY SAWYER at: 02/03/2023 11:01:44 by:[id number] PERFORMED BY: [place] [id number] PATHOLOGIST DISEASE EDUCATION SPECIALIST AMOR GREGORY M.D. Performed By: #### H S TROP #### [place] [address] [place] Troponin I High Sensitivity 71.2 pg/mL Off scale high 0.0-15.0 [facility] Comment on above: Result Comment: Crit ical Result : Called to and read back by: ODILON WILLIS at: 02/03/2023 02:27:28 by:[id number] PERFORMED BY: [address] [place] [address] PATHOLOGIST DISEASE EDUCATION SPECIALIST AMOR GREGORY M.D. Performed By: #### C BC, PTT, BNP, CMP, CK, PT, HS TROP #### [facility] [address] Troponin I.cardiac [Mass/vol ume] in Serum or Plasma by Detection limit <= 0.01 ng/Ordered By: Jesse Lombardo on 02-03-2023 Troponin I.cardiac DL <= 0.01 ng/mL [Mass/Vol] 49317.0 pg/mL 0.0-15.0 [facility] Comment on above: Critical Result I_Tn IHS_d:64510.0 Called to and read back by: NASIR RUCKER at: 02/03/2023 19:39:12 by:[id number] BNPon 09-29-2021 Natriuretic peptide B (Bld) [Mass/Vol] 247.0 pg/mL Normal <=900.[address] [facility] Comment on above: Performed By: #### B FINAL ASSEMBLY INSPECTOR, CMP, HSTROPN #### [facility] [address] [place] [address] Dr. Lawrence Baltazar CBC AUTO DIFFon 09-29-2021 BASO # 0.1 103/ul Normal 0.0-0.[address] [facility] Comment on above: Performed By: #### C BC #### [facility] [address] [place] [address] Dr. Lawrence Baltazar Basophils/100 WBC (Bld) 1.1 % Normal 0.2-2.[address] [facility] Comment on above: Performed By: #### C BC #### [facility] [address] [place] [address] Dr. Lawrence Baltazar EO # 0.2 103/ul Normal 0.0-0.[address] [facility] Comment on above: Performed By: #### C BC #### [facility] [address] [place] [address] Dr. Lawrence Baltazar Eosinophils/100 WBC (Bld) 2.6 % Normal 0.9-7.[address] [facility] Comment on above: Performed By: #### C BC #### [facility] [address] [place] [address] Dr. Lawrence Baltazar Erythrocyte distribution width (RBC) [Ratio] 18.2 % Critically high 11.0-15.[address] [facility] Comment on above: Performed By: #### C BC #### [facility] [address] [place] [address] Dr. Lawrence Baltazar Hematocrit (Bld) [Volume fraction] 50.5 % Critically high 36.0-48.[address] [facility] Comment on above: Performed By: #### C BC #### [facility] [address] [place] [address] Dr. Lawrence Baltazar Hemoglobin (Bld) [Mass/Vol] 15.7 g/dL Normal 12.0-16.[address] [facility] Comment on above: Performed By: #### C BC #### [facility] [address] [place] [address] Dr. Lawrence Baltazar IG # 0.05 10e3/ul Critically high 0.00-0.[address] [facility] Comment on above: Performed By: #### C BC #### [facility] [address] [place] [address] Dr. Lawrence Baltazar IG % 0.5 % Normal 0.0-0.[address] [facility] Comment on above: Performed By: #### C BC #### [facility] [address] [place] [address] Dr. Lawrence Baltazar LYMPH # 1.8 103/ul Normal 1.2-3.[address] [facility] Comment on above: Performed By: #### C BC #### [facility] [address] [place] [address] Dr. Lawrence Baltazar Lymphocytes/100 WBC (Bld) 19.8 % Critically low 20.5-60.[address] [facility] Comment on above: Performed By: #### C BC #### [facility] [address] [place] [address] Dr. Lawrence Baltazar MANUAL DIFF REQ NO Normal [facility] Comment on above: Performed By: #### C BC #### [facility] [address] [place] [address] [address] Lawrence Baltazar MCH (RBC) [Entitic mass] 27.0 pg Normal 26.7-34.[address] [facility] Comment on above: Performed By: #### C BC #### [facility] [address] [place] [address] Dr. Lawrence Baltazar MCHC (RBC) [Mass/Vol] 31.1 g/dL Normal 29.9-35.[address] [facility] Comment on above: Performed By: #### C BC #### [facility] [address] [place] [address] Dr. Lawrence Baltazar MCV (RBC) [Entitic vol] 86.8 fL Normal 81.0-99.[address] [facility] Comment on above: Performed By: #### C BC #### [facility] [address] [place] [address] Dr. Lawrence Baltazar MONO # 0.6 103/ul Normal 0.3-0.[address] [facility] Comment on above: Performed By: #### C BC #### [facility] [address] [place] [address] Dr. Lawrence Baltazar Monocytes/100 WBC (Bld) 7.0 % Normal 1.7-12.[address] [facility] Comment on above: Performed By: #### C BC #### [facility] [address] [place] [address] Dr. Lawrence Baltazar NEUT # 6.3 103/ul Normal 1.4-6.[address] [facility] Comment on above: Performed By: #### C BC #### [facility] [address] [place] [address] Dr. Lawrence Baltazar Neutrophils/100 WBC (Bld) 69.0 % Normal 43.0-75.[address] [facility] Comment on above: Performed By: #### C BC #### [facility] [address] [place] [address] Dr. Lawrence Baltazar Platelet mean volume (Bld) [Entitic vol] 11.4 fL Normal 9.5-13.[address] [facility] Comment on above: Performed By: #### C BC #### [facility] [address] [place] [address] [address] Lawrence Baltazar PLT 225 103/ul Normal 150-[address] [facility] Comment on above: Performed By: #### C BC #### [facility] [address] [place] [address] Dr. Lawrence Baltazar RBC 5.82 106/ul Critically high 4.20-5.[address] [facility] Comment on above: Performed By: #### C BC #### [facility] [address] [place] [address] Dr. Lawrence Baltazar WBC 9.2 103/ul Normal 4.0-11.[address] [facility] Comment on above: Performed By: #### C BC #### [facility] [address] [place] [address] Dr. Lawrence Baltazar PROF 14(COMP METB)on 022 Albumin [Mass/Vol] 3.5 g/dL Normal 3.4-5.[address] [facility] Comment on above: Performed By: #### B FINAL ASSEMBLY INSPECTOR, CMP, HSTROPN #### [facility] [address] [place] [address] Dr. Lawrence Baltazar Albumin/Globulin [Mass ratio] 0.9 {ratio} Normal [facility] Comment on above: Performed By: #### B FINAL ASSEMBLY INSPECTOR, CMP, HSTROPN #### [facility] [address] [place] [address] Dr. Lawrence Baltazar ALP [Catalytic activity/Vol] 139 U/L Critically high 46-[address] [facility] Comment on above: Performed By: #### B FINAL ASSEMBLY INSPECTOR, CMP, HSTROPN #### [facility] [address] [place] [address] Dr. Lawrence Baltazar ALT [Catalytic activity/Vol] 26 U/L Normal 14-[address] [facility] Comment on above: Performed By: #### B FINAL ASSEMBLY INSPECTOR, CMP, HSTROPN #### [facility] [address] [place] [address] Dr. Lawrence Baltazar Anion gap [Moles/Vol] 9.2 mmol/L Normal [facility] Comment on above: Performed By: #### B FINAL ASSEMBLY INSPECTOR, CMP, HSTROPN #### [facility] [address] [place] [address] Dr. Lawrence Baltazar AST [Catalytic activity/Vol] 12 U/L Critically low 15-[address] [facility] Comment on above: Performed By: #### B FINAL ASSEMBLY INSPECTOR, CMP, HSTROPN #### [facility] [address] [place] [address] Dr. Lawrence Baltazar Bilirubin [Mass/Vol] 0.4 mg/dL Normal 0.2-1.[address] [facility] Comment on above: Performed By: #### B FINAL ASSEMBLY INSPECTOR, CMP, HSTROPN #### [facility] [address] [place] [address] Dr. Lawrence Baltazar Calcium [Mass/Vol] 8.8 mg/dL Normal 8.5-10.[address] [facility] Comment on above: Performed By: #### B FINAL ASSEMBLY INSPECTOR, CMP, HSTROPN #### [facility] [address] [place] [address] Dr. Lawrence Baltazar Chloride [Moles/Vol] 102 mmol/L Normal 98-[address] [facility] Comment on above: Performed By: #### B FINAL ASSEMBLY INSPECTOR, CMP, HSTROPN #### [facility] [address] [place] [address] Dr. Lawrence Baltazar CO2 [Moles/Vol] 31.6 mmol/L Critically high 22.0-30.[address] [facility] Comment on above: Performed By: #### B FINAL ASSEMBLY INSPECTOR, CMP, HSTROPN #### [facility] [address] [place] [address] Dr. Lawrence Baltazar Creatinine [Mass/Vol] 0.93 mg/dL Normal 0.52-1.[address] [facility] Comment on above: Performed By: #### B FINAL ASSEMBLY INSPECTOR, CMP, HSTROPN #### [facility] [address] [place] [address] Dr. Lawrence Baltazar EGFR-AF SWAZI >60 Normal >=[address] [facility] Comment on above: Performed By: #### B FINAL ASSEMBLY INSPECTOR, CMP, HSTROPN #### [facility] [address] [place] [address] Dr. Lawrence Baltazar EGFR-NON AF SWAZI >60 Normal >=[address] [facility] Comment on above: Performed By: #### B FINAL ASSEMBLY INSPECTOR, CMP, HSTROPN #### [facility] [address] [place] [address] [address] Lawrence Baltazar Globulin (S) [Mass/Vol] 4.0 g/dL Normal [facility] Comment on above: Performed By: #### B FINAL ASSEMBLY INSPECTOR, CMP, HSTROPN #### [facility] [address] [place] [address] [address] Lawrence Baltazar Glucose [Mass/Vol] 154 mg/dL Critically high 74-106 [facility] Comment on above: Performed By: #### B FINAL ASSEMBLY INSPECTOR, CMP, HSTROPN #### [facility] [address] [place] [address] [address] Lawrence Baltazar Potassium [Moles/Vol] 3.8 mmol/L Normal 3.4-5.[address] [facility] Comment on above: Performed By: #### B FINAL ASSEMBLY INSPECTOR, CMP, HSTROPN #### [facility] [address] [place] [address] [address] Lawrence Baltazar Protein [Mass/Vol] 7.5 g/dL Normal 6.1-8.[address] [facility] Comment on above: Performed By: #### B FINAL ASSEMBLY INSPECTOR, CMP, HSTROPN #### [facility] [address] [place] [address] [address] Lawrence Baltazar Sodium [Moles/Vol] 139 mmol/L Normal 137-[address] [facility] Comment on above: Performed By: #### B FINAL ASSEMBLY INSPECTOR, CMP, HSTROPN #### [facility] [address] [place] [address] [address] Lawrence Baltazar Urea nitrogen [Mass/Vol] 19.0 mg/dL Critically high 7.0-18.[address] [facility] Comment on above: Performed By: #### B FINAL ASSEMBLY INSPECTOR, CMP, HSTROPN #### [facility] [address] [place] [address] [address] Lawrence Baltazar Urea nitrogen/Creatinine [Mass ratio] 20.4 mg/mg Normal [facility] Comment on above: Performed By: #### B FINAL ASSEMBLY INSPECTOR, CMP, HSTROPN #### [facility] [address] [place], [place] [address] Dr. Lawrence Baltazar TROPONIN, HIGH SENSITIVITYon 09-29-2021 HSTROP 11.4 pg/mL Normal 4.0-35.[address] [facility] Comment on above: Result Comment: CUT- OFF POINTS HAVE BEEN ESTABLISHED BASED ON THE FOURTH UNIVERSAL DEFINITIONS OF MYOCARDIAL INFARCTION. THE UPPER REFERENCE LIMIT (URL) OF TROPONIN, DEFINED THE 99TH PERCENTILE OF cTnI DISTRIBUTION IN A REFERENCE POPULATION, HAS BEEN CONFIRMED THE DECISION THRESHOLD FOR [place] DIAGNOSIS. Performed By: #### B FINAL ASSEMBLY INSPECTOR, CMP, HSTROPN #### [facility] [address] [place] [id number] Lawrence Baltazar XR CHEST 1 Von 09-29-2021 XR CHEST 1 V EXAM: XR CHEST 1 V 09/29/2021 4:58 AM EDT [id number] CLINICAL STATEMENT: SHORTNESS OF BREATH COMPARISON: 11/06/2020 TECHNIQUE: Single AP radiograph of the chest is submitted. FINDINGS: There is mild pulmonary vascular congestion without acute airspace disease. The cardiac silhouette is normal. The costophrenic recesses are sharp. No pneumothorax. The bony elements are unremarkable. IMPRESSION: Mild pulmonary vascular congestion without acute airspace disease. FOLLOW-UP: Follow-up as clinically indicated. Electronically authenticated by: MAYCOL SAID Date: 2021-09-29 05:[address] [facility] Covid-19 PCR (CVDTB)on 06-12 SARS-CoV-2 (COVID-19) RNA MAUREEN+probe Ql (Unsp spec) Not detected Normal NOT DETECTED [facility] Comment on above: Result Comment: This test is not yet approved or cleared by the [place] FDA. When there are no FDA-approved or cleared tests available, and other criteria are met, FDA can make tests available under an emergency access mechanism called an Emergency Use Authorization (EUA). The EUA for this test is supported by the [place] of Health and Human Service's (HHS's) declaration that circumstances exist to justify the emergency use of in vitro diagnostics for the detection and/or diagnosis of the virus that causes COVID-19. This EUA will remain in effect (meaning this test can be used) for the duration of the COVID-19 declaration justifying emergency of IVDs, unless it is terminated or revoked by FDA (after which the test may no longer be used). When diagnostic testing is negative, the possibility of a false negative should be considered in the context of a patient's recent exposures and the presence of clinical signs and symptoms consistent with SARS-CoV-2. Performed By: #### C VDTB #### [facility] [address] [place] [address] Dr. Lawrence Baltazar Operative Reporton 1 Operative Report MR#: [id number] [facility] Pt. Name: Francisca Kumar Room #: 0C Discharge Date: Birthdate: 1960 OPERATIVE REPORT DATE OF SURGERY: 03/25/2021 SURGEON: Ester Lopez M.D. PREOPERATIVE DIAGNOSIS: Right knee lateral meniscus tear. POSTOPERATIVE DIAGNOSIS: Right knee lateral meniscus tear. PROCEDURE PERFORMED: 1. Right knee arthroscopy with lateral meniscus debridement. 2. Removal of loose body. ANESTHESIA: General. BLOOD LOSS: Minimal. FLUIDS: Per anesthesia record. SPECIMENS: None. COMPLICATIONS: None. IMPLANTS: None. INDICATIONS: The patient is a 61-year-old female who failed all conservative measures of treatment of right knee pain. The patient had an MRI completed that confirmed a lateral meniscus tear. Risks and benefits were discussed. The patient elected to proceed with the procedure as mentioned above. PROCEDURE IN DETAIL: The patient was met in the preoperative area. Informed consent was obtained. The appropriate surgical site was marked. All questions raised by the patient were answered by the attending physician as well as assistants present. The patient was taken back to the operative suite where general anesthesia was smoothly induced. The patient's right lower extremity was prepped and draped in standard sterile fashion. Prior to this, a nonsterile tourniquet was placed. An appropriate surgical time-out was completed to confirm the patient, procedure, and laterality using 2 patient identifiers. We then began our procedure by exsanguinating the right lower extremity and inflating the tourniquet to 300 mmHg. We then injected 20 cc of 0.25% Marcaine with epinephrine into our proposed portal sites. We then made a standard arthroscopic incision to the right knee. We then completed our diagnostic knee scope, which showed some medial meniscus fraying as well as loose bodies within the intercondylar notch. We directed our attention to the lateral compartment, which showed a large complex lateral meniscus tear. Arthroscopic shaver was then inserted into the knee and a medial meniscus debridement was performed. We then directed our attention to the lateral side where a large portion of the complex tear was removed back to stable margins. An arthroscopic grasper was then used to remove all loose bodies present within the intercondylar notch. ArthroCare was used to soften the edges of the debrided areas as well as to control bleeding. We then directed our attention to the patellofemoral joint and found that there was no evidence of any cartilaginous or large synovitic areas. The wound was then appropriately drained of all fluid and closed using a 3-0 Novafil in interrupted fashion. The patient was dressed with Xeroform, 4x4s, and Webril, and an Ravi wrap for compression. The patient was awoken from general anesthesia, transferred to PACU for recovery. The patient tolerated the procedure well. The patient was discharged home today with appropriate pain medication and will follow up in clinic in 10-[address] Lopez was present for all critical portions of the case and made all critical decisions regarding the patient's care. Electronically Signed by: Ester Lopez M.D. 03/26/2021 12:55 P Ester Lopez M.D. I was present for the anthony and critical portions and I was otherwise immediately available to assist. Date Dict: 03/25/2021/11:15 A/Elliot Quigley MD Date Trans: 03/25/2021 11:30 Toribio/wale [id number] cc: Michelle Black D.O. [facility] [place] [facility] [place] [address] [facility] [address] Normal [facility] POC GLUCOSE LABon 03-25-2021 Glucose [Mass/Vol] 133 mg/dL High 70-100 [facility] Comment on above: Performed By: #### 8 [id number] #### [facility] [address] [place] [address], [facility] *MRSA/MSSA DNA NASALon 03-12 *MRSA/MSSA DNA NASAL Clinical Report: (D ) Specimen: NASAL SWAB Collected: 03/12/2021 10:20 Status: Final Last Updated: 03/12/2021 17:42 MSSA DNA (Final) Negative MRSA DNA (Final) Methicillin Resistant Staphylococcus aureus DNA Detected Normal [facility] Comment on above: Performed By: #### 3 [id number] #### [facility] [address] [place] [address], [facility] APTTon 03-12-2021 aPTT Coag (Bld) [Time] 31.8 s Normal 25.0-35.0 Th [facility] Comment on above: Result Comment: ALL RESULTS MUST BE INTERPRETED WITH RESPECT TO BLOOD DRAWING ARTIFACT OR DILUTION ERROR OF ANTICOAGULANT AT THE TIME OF SAMPLING. THE APTT SHOULD NOT BE USED TO MONITOR UNFRACTIONATED HEPARIN THERAPY, THIS LABORATORY NO LONGER HAS AN ESTABLISHED THERAPEUTIC RANGE BASED ON THE APTT. IT IS RECOMMENDED THAT THE [facility] - HEPARIN ASSAY (ANTI-XA ACTIVITY) BE USED FOR THIS PURPOSE. Performed By: #### 5 [id number], [id number] #### [facility] [address] [facility] [place] [address], [facility] BASIC METABOLIC PANELon Calcium [Mass/Vol] 9.2 mg/dL Normal 8.6-10.3 [facility] Comment on above: Performed By: #### 0 0071 #### [facility] [address] [place] [address], [facility] Chloride [Moles/Vol] 104 mmol/L Normal 98-107 [facility] Comment on above: Performed By: #### 0 0071 #### [facility] [address] [place] [address], [facility] CO2 [Moles/Vol] 27 mmol/L Normal 21-31 [facility] Comment on above: Performed By: #### 0 0071 #### [facility] [address] [place] [address], [place] Creatinine [Mass/Vol] 0.91 mg/dL Normal 0.60-1.20 [facility] Comment on above: Performed By: #### 0 0071 #### [facility] [address] [place] [address], [place] GFR/1.73 sq M.predicted among blacks MDRD (S/P/Bld) [Vol rate/Area] mL/min/{1.73_m2} Normal >60 [facility] Comment on above: Performed By: #### 0 0071 #### [facility] [address] [place] [address], [place] GFR/1.73 sq M.predicted among non-blacks MDRD (S/P/Bld) [Vol rate/Area] mL/min/{1.73_m2} Normal >60 [facility] Comment on above: Performed By: #### 0 0071 #### [facility] [address] [place] [address], [place] Glucose [Mass/Vol] 131 mg/dL High 70-100 [facility] Comment on above: Performed By: #### 0 0071 #### [facility] [address] [place] [address], [place] Potassium [Moles/Vol] 4.0 mmol/L Normal 3.5-5.1 [facility] Comment on above: Performed By: #### 0 0071 #### [facility] [address] [place] [address], [place] Sodium [Moles/Vol] 139 mmol/L Normal 136-145 [facility] Comment on above: Performed By: #### 0 0071 #### [facility] [address] [place] [address], [place] Urea nitrogen [Mass/Vol] 16 mg/dL Normal 7-25 [facility] Comment on above: Performed By: #### 0 0071 #### [facility] [address] [place] [address], [facility] CBC W/DIFFon 03-12-2021 ABS IMM GRANS 0.1 10*3/uL Normal 0.0-0.2 [facility] Comment on above: Performed By: #### 5 0103 #### [facility] [address] [place] [address], [facility] ABS NEUTROPHILS 7.9 10*3/uL High 1.6-7.6 [facility] Comment on above: Performed By: #### 5 3 #### [facility] [address] [place] [address], [facility] Basophils (Bld) [#/Vol] 0.1 10*3/uL Normal 0.0-0.2 [facility] Comment on above: Performed By: #### 5 102 #### [facility] [address] [place] [address], [facility] Basophils/100 WBC (Bld) 0.5 % Normal 0.0-1.0 [facility] Comment on above: Performed By: #### 5 102 #### [facility] [address] [place] [address], [facility] Eosinophils (Bld) [#/Vol] 0.3 10*3/uL Normal 0.0-0.5 [facility] Comment on above: Performed By: #### 5 010 #### [facility] [address] [place] [address], [facility] Eosinophils/100 WBC (Bld) 2.3 % Normal 0.0-6.0 [facility] Comment on above: Performed By: #### 5 102 #### [facility] [address] Erythrocyte distribution width (RBC) [Ratio] 17.2 % High 11.5-15.0 [facility] Comment on above: Performed By: #### 5 0103 #### [facility] [address] [facility] Hematocrit (Bld) [Volume fraction] 49.1 % High 36.0-45.0 [facility] Comment on above: Performed By: #### 3 #### [facility] [address] [facility]. [address] Hemoglobin (Bld) [Mass/Vol] 15.3 g/dL High 12.0-15.0 [facility] Comment on above: Performed By: #### 3 #### [facility] [address] IMMATURE GRANS 0.5 % Normal 0.0-1.0 [facility] Comment on above: Performed By: #### 102 #### [facility] [address] Lymphocytes (Bld) [#/Vol] 2.2 10*3/uL Normal 1.2-4.0 [facility] Comment on above: Performed By: #### 3 #### [facility] [address] Lymphocytes/100 WBC (Bld) 19.4 % Low 20.0-45.0 [facility] Comment on above: Performed By: #### 5 3 #### [facility] [address] [facility]. [address] MCH (RBC) [Entitic mass] 26.8 pg Low 27.0-33.0 [facility] Comment on above: Performed By: #### 3 #### [facility] [address] MCHC (RBC) [Mass/Vol] 31.2 g/dL Low 32.0-35.0 [facility] Comment on above: Performed By: #### 3 #### [facility] [address] [facility] [place] [address], [facility] MCV (RBC) [Entitic vol] 86.0 fL Normal 82.0-98.0 [facility] Comment on above: Performed By: #### 0103 #### [facility] [address] [facility] [place] [address], [facility] Monocytes (Bld) [#/Vol] 0.7 10*3/uL Normal 0.1-1.0 [facility] Comment on above: Performed By: #### 3 #### [facility] [address] [place] [address], [facility] MONOS 5.9 % Normal 5.0-12.0 [facility] Comment on above: Performed By: #### 102 #### [facility] [address] [facility] [place] [address], [facility] Neutrophils/100 WBC (Bld) 71.4 % Normal 40.0-72.0 [facility] Comment on above: Performed By: #### 102 #### [facility] [address] [place] [address], [facility] Nucleated RBC/100 WBC (Bld) [Ratio] 0 % Normal 0-0 [facility] Comment on above: Performed By: #### 3 #### [facility] [address] [facility] [place] [address], [facility] PLAT CNT 239 10*3/uL Normal 150-400 [facility] Comment on above: Performed By: #### 3 #### [facility] [address] [facility] [place] [address], [facility] RBC (Bld) [#/Vol] 5.71 10*6/uL High 3.80-5.00 [facility] Comment on above: Performed By: #### 3 #### [facility] [address] WBC (Bld) [#/Vol] 11.10 10*3/uL High 4.00-10.60 [facility] Comment on above: Performed By: #### 5 0103 #### [facility] [address] PROTHROMBIN TIMEon 1 INR Coag (PPP) [Relative time] 1.00 {INR} Normal 0.91-1.16 [facility] Comment on above: Result Comment: ACCC P RECOMMENDED INR FOR WARFARIN THERAPY --------- ------- CONDITION INR PROPHYLAXIS OF VENOUS THROMBOSIS 2-3 (HIGH-RISK SURGERY) TREATMENT OF VENOUS THROMBOSIS 2-3 TREATMENT OF PULMONARY EMBOLISM 2-3 PREVENTION OF SYSTEMIC EMBOLISM: 2-3 ACUTE MYOCARDIAL INFARCTION TISSUE HEART VALVES VALVULAR HEART DISEASE ATRIAL FIBRILLATION RECURRENT SYSTEMIC EMBOLISM MECHANICAL HEART VALVE 2.5-3.5 FROM: ORAL ANTICOAGULANTS. MECHANISM OF ACTION, CLINICAL EFFECTIVENESS, AND OPTIMAL THERAPEUTIC RANGE. CHEST 1995;108:231S-246S. Performed By: #### 5 7307, [id number] #### [facility] [address] PT Coag (PPP) [Time] 13.2 s Normal 12.3-14.8 [facility] Comment on above: Result Comment: ALL RESULTS MUST BE INTERPRETED WITH RESPECT TO BLOOD DRAWING ARTIFACT OR DILUTION ERROR OF ANTICOAGULANT AT THE TIME OF SAMPLING. Performed By: #### 5 [id number], [id number] #### [facility] [address] Vital Signs Date Time Vital Sign Value Performing Clinician Facility 10-04-2023 15:14-0400 Body height 170.2 cm Milton Blake APRN-[employer] Work Phone: [facility] 10-04-2023 15:14-0400 Body mass index (BMI) [Ratio] 63.02 kg/m2 Milton Blake MANAGER P[employer]AGING-[employer] Work Phone: [facility] 10-04-2023 15:14-0400 Body temperature 98.01 [degF] Milton Blake APRN-[employer] Work Phone: [facility] 10-04-2023 15:14-0400 Body weight 182.53 kg Milton Blake APRN-[employer] Work Phone: [facility] 10-04-2023 15:14-0400 Diastolic blood pressure 80 mm[Hg] Milton Blake MANAGER PACK[employer]ING-[employer] Work Phone: [facility] 10-04-2023 15:14-0400 Heart rate 80 /min Milton Blake APRN-[employer] Work Phone: [facility] 10-04-2023 15:14-0400 Respiratory rate 20 /min Milton Blake APRN-[employer] Work Phone: [facility] 10-04-2023 15:14-0400 SaO2% (BldA) [Mass fraction] 93 % Milton Blake APRN-[employer] Work Phone: [facility] 10-04-2023 15:14-0400 Systolic blood pressure 132 mm[Hg] Milton Blake MANAGER P[employer]ING-[employer] Work Phone: [facility] 08-10-2023 15:38-0500 Body height 170.2 cm Milton Blake APRN-[employer] Work Phone: [facility] 08-10-2023 15:38-0500 Body mass index (BMI) [Ratio] 59.89 kg/m2 Milton Blake MANAGER [employer] Work Phone: [facility] [employer] [facility] 08-10-2023 15:38-0500 Body temperature 97.9 [degF] Milton Blake APRN-[employer] Work Phone: [facility] 08-10-2023 15:38-0500 Body weight 173.46 kg Milton Blake APRN-PAZ Work Phone: [facility] [employer] [facility] 08-10-2023 15:38-0500 Diastolic blood pressure 80 mm[Hg] Milton Blake APRN-PAZ Work Phone: [facility] [employer] [facility] 08-10-2023 15:38-0500 Heart rate 74 /min Milton Blake APRN-PAZ Work Phone: [facility] [employer] [facility] 08-10-2023 15:38-0500 SaO2% (BldA) [Mass fraction] 97 % Milton Blake APRN-PAZ Work Phone: [facility] [employer] [facility] 08-10-2023 15:38-0500 Systolic blood pressure 140 mm[Hg] Milton Blake APRN-PAZ Work Phone: [facility] 02-04-2023 13:00-0400 Body temperature 98.2 [degF] MD Ru Johnson Jr Work Phone: [facility] 02-04-2023 13:00-0400 Diastolic blood pressure 69 mm[Hg] MD Ru Johnson Jr Work Phone: [facility] 02-04-2023 13:00-0400 Heart rate 66 /min MD Ru Johnson Jr Work Phone: [facility] 02-04-2023 13:00-0400 Respiratory rate 18 /min MD Ru Johnson Jr Work Phone: [facility] 02-04-2023 13:00-0400 SaO2% (BldA) [Mass fraction] 97 % MD Ru Johnson Jr Work Phone: [facility] 02-04-2023 13:00-0400 Systolic blood pressure 112 mm[Hg] MD Ru Johnson Jr Work Phone: [facility] 02-04-2023 08:00-0400 Inhaled oxygen flow rate 2 L/min MD Ru Johnson Jr Work Phone: [facility] 02-04-2023 06:00-0400 Body weight 189.9 kg MD Ru Johnson Jr Work Phone: [facility] 02-03-2023 04:09-0400 Body height 170.18 cm MD Ru Johnson Jr Work Phone: [facility] Encounters Encounter Date Encounter Type Care Provider Facility Start: 06-05-2024 End: 06-06-2024 Refill Milton Blake MANAGER [employer] Work Phone: [facility] Comment on above: Neuropathy Start: 05-05-2024 End: 05-22-2024 Telephone encounter Milton Blake MANAGER P[employer] Work Phone: [facility] Start: 04-26-2024 End: 04-26-2024 Orders Only Milton Blake MANAGER [employer] Work Phone: [facility] Comment on above: Type 2 diabetes nori itus with hyperglycemia, without long-term current use of insulin ([facility]) Start: 04-10-2024 End: 04-10-2024 ambulatory MILTONBELÉN BLAKE [facility] Start: 10-04-2023 End: 10-04-2023 Office outpatient visit 25 minutes Milton Blake MANAGER P[employer] Work Phone: [facility] Comment on above: Type 2 diabetes nori itus with hyperglycemia, without long-term current use of insulin ([facility]) (Primary Dx); Mixed hyperlipidemia; Bilateral lower extremity edema; Benign essential HTN; Osteoarthritis of multiple joints, unspecified osteoarthritis type; Itching Start: 10-04-2023 End: 10-04-2023 ambulatory [facility] Start: 08-31-2023 Orders Only Milton kim MANAGER P[employer] Work Phone: [facility] Comment on above: Type 2 diabetes nori itus with hyperglycemia, without long-term current use of insulin ([facility]) Start: 08-30-2023 Refill Milton kim MANAGER [employer] Work Phone: [facility] Comment on above: Type 2 diabetes nori itus with hyperglycemia, without long-term current use of insulin ([facility]) Start: 08-11-2023 End: 08-11-2023 ambulatory [facility] Start: 08-10-2023 End: 08-10-2023 Office outpatient visit 40 minutes Milton Blake MANAGER P[employer] Work Phone: [facility] Comment on above: Type 2 diabetes nori itus with hyperglycemia, without long-term current use of insulin ([facility]) (Primary Dx); Mixed anxiety and depressive disorder; Bilateral lower extremity edema; Benign essential HTN; Acute non-recurrent maxillary sinusitis; Osteoarthritis of multiple joints, unspecified osteoarthritis type; Mixed hyperlipidemia; Vitamin D deficiency; Upper respiratory tract infection, unspecified type Start: 08-10-2023 End: 08-10-2023 ambulatory [facility] Start: 07-31-2023 Refill Milton ikm MANAGER [employer] Work Phone: [facility] Comment on above: Benign essential HTN ; Hypokalemia; Bilateral lower extremity edema Start: 02-03-2023 End: 02-04-2023 Evaluation and management of inpatient Milton Blake Facility:[facility] Start: 02-03-2023 End: 02-04-2023 Evaluation and management of inpatient MD Ru Johnson Jr Work Phone: [facility] Work Phone: Start: 09-29-2021 End: 09-29-[address] BRODIE LEONG Facility:[facility] Start: 07-13-2021 End: 08-13-2021 ambulatory DEANNA JAMES Facility:[facility] Start: 07-09-2021 End: 07-09-2021 ambulatory KATIE TEGAN Facility:[facility] Start: 04-18-2021 End: 07-11-[address] DOCTOR LUJAN Facility:[facility] Start: 03-25-2021 End: 03-26-2021 ambulatory ESTER LOPEZ Facility:[facility] Start: 12-27-2020 Patient encounter status Gibson barry Hayden MANAGER [employer] Work Phone: [employer] Work Phone: Start: 12-27-2020 Preoperative state Milton Philippe cadena MANAGER [employer] Work Phone: [employer] Start: 07-11-2014 End: 07-12-2014 Patient encounter procedure PATRICK BOYCEPTA Facility:[facility] Procedures Date Procedure Procedure Detail Performing Clinician Start: 04-10-2024 Adult depression screening assessment Milton Blake MANAGER [employer] Work Phone: Start: 10-04-2023 Follow-up visit Follow-up MILTON BLAKE Start: 10-04-2023 Adult depression screening assessment Milton Blake MANAGER [employer] Work Phone: Start: 08-10-2023 Hemoglobin glycosyla frida a1c Milton Blake MANAGER [employer] Work Phone: Start: 03-03-2023 Adult depression screening assessment Miltonbelén Blake MANAGER [employer] Work Phone: Start: 02-03-2023 CL AO Ascending w/He art Cath MD Ru Johnson Jr Work Phone: Start: 02-03-2023 CL Coronary Thrombol ysis IV MD Ru Johnson Jr Work Phone: Start: 02-03-2023 CL LHC & COR Angio MD Cally Johnson Jr Work Phone: Start: 02-03-2023 CL PCI AMI 1st Vesse l RCA VIVEK MD Ru Johnson Jr Work Phone: Start: 03-25-2021 ANESTH KNEE JOINT SURGERY ESTER ANDRAE Start: 03-25-2021 KNEE ARTHROSCOPY/SURGERY ESTER ANDRAE Start: 07-11-2014 [object Object] PATRICK YOUSIF History of placement of stent for coronary artery disease H/O heart artery stent MD Ru Johnson Jr Work Phone: Plan of Treatment Date Care Activity Detail Author Start: 04-30-2030 DTaP,Tdap and Td Vaccines (2 - Tdap) DTaP,Tdap and Td Vaccines (2 - Tdap) [facility] Start: 04-10-2025 Adult BMI Follow Up Plan Adult BMI Follow Up Plan [facility] Start: 04-10-2025 Adult BMI Screening Adult BMI Screening [facility] Start: 04-10-2025 Depression Screening Depression Screening [facility] Start: 04-10-2025 Tobacco Screening Tobacco Screening [facility] Start: 10-03-2024 Adult BMI Screening Adult BMI Screening [facility] Start: 10-03-2024 Depression Screening Depression Screening [facility] Start: 10-03-2024 Tobacco Screening Tobacco Screening [facility] Start: 09-27-2024 End: 09-27-2024 Patient encounter procedure 09/27/2024 3:20 PM EDT Office Visit [facility] Medicine - Family Medicine [address] [place] [address] Milton Blake, MANAGER [employer]ACK[employer]ING-[facility] [address] [place] [address] [facility] Internal Medicine - Family Medicine Start: 08-11-2024 Tobacco Screening Tobacco Screening [facility] Start: 08-10-2024 Adult BMI Follow Up Plan Adult BMI Follow Up Plan [facility] Start: 08-10-2024 Adult BMI Screening Adult BMI Screening [facility] Start: 04-10-2024 End: 04-10-2024 Patient encounter procedure 04/10/2024 4:00 PM EDT Office Visit [facility] Internal Medicine - Family Medicine [address] [place] [address] Milton Blake, MANAGER [employer] [address] [place] [address] [facility] Internal Medicine - Family Medicine Start: 03-12-2024 COVID-19 Vaccine ( season) COVID-19 Vaccine ( season) [facility] Start: 03-12-2024 COVID-19 Vaccine ( season) COVID-19 Vaccine () [facility] Start: 03-12-2024 Influenza vaccination Influenza Vaccine [facility] Start: 03-03-2024 Adult BMI Follow Up Plan Adult BMI Follow Up Plan [facility] Start: 03-03-2024 Adult BMI Screening Adult BMI Screening [facility] Start: 03-03-2024 Depression Screening Depression Screening [facility] Start: 03-03-2024 Tobacco Screening Tobacco Screening [facility] Start: 11-10-2023 End: 11-10-2023 Patient encounter procedure 11/10/2023 3:30 PM EDT Office Visit [facility] Internal Medicine - Family Medicine [address] [place] [address] Milton Blake, MANAGER [employer] [address] [place] [address] [facility] Internal Medicine - Family Medicine Start: 08-02-2023 End: 08-02-2023 Patient encounter procedure 08/02/2023 3:30 PM EST Office Visit [facility] Internal Medicine - Family Medicine [address] [place] [address] Milton Blake, MANAGER [employer] [address] [place] [address] [facility] Internal Medicine - Family Medicine Start: 03-12-2023 COVID-19 Vaccine ( season) COVID-19 Vaccine () [facility] Start: 03-12-2023 Influenza vaccination Influenza Vaccine [facility] Start: 02-04-2023 [facility] Start: 02-03-2023 Hospital admission [facility] Start: 02-03-2023 Referral to cardiac rehabilitation program [facility] Start: 02-03-2023 [facility] Start: 01-19-2012 Administration of varicella zoster vaccine Zoster (Shingles) Vaccine (1 of 2) [facility] Start: 1983 Screening for malignant neoplasm of cervix Pap Smear [facility] Start: 01-19-1980 Diabetic foot examination Diabetic Foot Exam [facility] Start: 1962 Glaucoma screening Diabetic Ophthalmology Exam [facility] Start: 1962 Urine screening for protein Urine Microalbumin [facility] Patient Education Heart Failure, Adult (DC) Coronary Angioplasty (DC) Coronary Stenting (DC) Angina (DC) Chest Pain (DC) Drug Eluting Stents [facility] Work Phone: Patient referral [facility] Work Phone: Immunizations Immunization Date Immunization Notes Care Provider Tsering esquivel 08-07-2020 COVID-19, mRNA, LNP- S, PF, 30mcg/0.3mL Dose Milton Blake MANAGER [employer] Work Phone: [facility] 07-17-2020 COVID-19, mRNA, LNP- S, PF, 30mcg/0.3mL Dose Milton Blake MANAGER [employer] Work Phone: [facility] 04-30-2020 diphtheria, tetanus toxoids and pertussis vaccine Milton Blake MANAGER [employer] Work Phone: [facility] 04-26-2009 novel Influenza-H1N1 -09, live virus for nasal administration Milton Blake MANAGER [employer] Work Phone: [facility] 04-26-2009 influenza virus vacc ine, unspecified formulation Milton Blake MANAGER [employer] Work Phone: [facility] Payers Date Payer Category Payer Private Health Insurance [facility] [id number] 2023 Unknown [id number] 2023 Self-pay [id number] 2021 Unknown [facility] [id number] 2021-Present [phone] [address] [address] [place] [address] [id number] 1962 Unknown [id number] 1962 Unknown [id number] 1962 Unknown [id number] 1962 Unknown [id number] 1962 Unknown [id number] 1962 Unknown [id number] 1962 Unknown [id number] 1962 Unknown [id number] .[id number] 1962 Unknown [id number] .[id number] 1962 Unknown [id number] .[id number] 1959 Medicaid [id number] 1959 Unknown [id number] 1959 Unknown [id number] Medicaid [id number] Unknown [id number] Worker's Compensation [id number] Social History Date Type Detail Facility Start: 02-03-2023 Tobacco smoking stat [facility] Smoker (finding) [facility] Start: 1960 Sex Assigned At Female [facility] Start: 12-21-2022 End: 04-10-2024 Tobacco smoking status [facility] Ex-smoker [facility] History of tobacco use Cigarette Smoker [facility] Start: 12-21-2022 End: 04-10-2024 Cigarettes smoked current (pack per day) - Reported 2 [facility] Start: 12-21-2022 End: 04-10-2024 Tobacco use and exposure Smokeless tobacco non-user [facility] Start: 03-03-2023 End: 04-10-2024 Alcohol intake Current drinker of alcohol (finding) [facility] Start: 03-03-2023 End: 04-10-2024 Tobacco use panel [facility] Adolescent depressio n screening assessment 0 [facility] Start: 01-20-2021 Alcohol Comment RARELY [facility] Start: 1960 Sex Assigned At Not on file [facility] Start: 02-14-2015 Sex Female (finding) [facility] Medical Equipment Procedure Code Equipment Code Equipment Origin al Text Equipment Identifier Dates CL STENT PRABHAKAR FRONTIER 5.0 X 26 FDA Start: 02-03-2023 Monitor blood ma gars twice daily [id number] Start: 03-03-2023 Monitor blood ma gars twice daily [id number] Start: 03-03-2023 Inject 1 Pen Nee dle into the skin in the morning. [id number] Start: 05-06-2023 Goals Date Patient Goal Desired Activity /State Functional Status Date Assessment Result Facility 02-04-2023 Functional status Patient at Baseline [facility] Work Phone: Mental Status Date Assessment Result Facility 02-04-2023 Cognitive function Cognitive Sta tus Patient at Baseline [facility] Work Phone: Clinical Notes 02-03-2023 to 05-05-2024 Telephone Encounter - Krystle Kirkpatrick - 05/05/2024 10:38 AM EDTTelephone Encounter - Krystle Kirkpatrick - 05/05/2024 10:38 AM EDTTelephone Encounter - Krystle Kirkpatrick - 05/05/2024 10:38 AM EDT Note Date & Type Note Facility 05-05-2024 Miscellaneous Notes Called for assistance pick up attendant LM on VM Picking up 05/22 documented in this encounter [facility] 05-05-2024 Telephone encounter Note [facility] 05-05-2024 Telephone encounter Note LM on VM [facility] 05-05-2024 Telephone encounter Note Picking up 05/22 [facility] 10-04-2023 History of Presen t illness Narrative Images from the original note were not included. [address] [place] [phone] SUBJECTIVE: Patient ID: Francisca Kumar is a 63 y.o. female. Chief Complaint Patient presents with Follow-up Francisca presents for DM follow up today. Would like to switch to Ozempic from Victoza. There is possibility she may loose her insurance end of the month. States she stopped her fluoxetine over one week ago and moods have actually improved. Dose was 60 mg oral daily. She is not sure if its the warmer weather and sunshine which has been helping. Hypertension This is a chronic problem. The problem is controlled. Pertinent negatives include no chest pain, palpitations, peripheral edema or shortness of breath. Risk factors for coronary artery disease include diabetes mellitus, dyslipidemia, family history, obesity, post-menopausal state and smoking/tobacco exposure. Past treatments include beta blockers and calcium channel blockers. The current treatment provides significant improvement. Hypertensive end-organ damage includes CAD/WY and left ventricular hypertrophy. Diabetes Follow up. She has type 2 diabetes mellitus. There are no diabetic associated symptoms. Pertinent negatives for diabetes include no chest pain. There are no hypoglycemic complications. Diabetic complications include heart disease. Risk factors for coronary artery disease include diabetes mellitus, dyslipidemia, family history, hypertension, obesity, post-menopausal and tobacco exposure. When asked about current treatments, none were reported. She is following a generally healthy diet. She participates in exercise intermittently. Depression Visit: Follow-up Initial visit: Symptoms: decreased concentration Symptoms: no chest pain, no palpitations and no shortness of breath Follow-up visit: Symptoms: decreased concentration, depressed mood, malaise, muscle tension and nervous/anxious Frequency: Most days Severity: Moderate Current Treatment: SSRI's- states she stopped fluoxetine over one week ago and I actually feel better Response to treatment: Improving The following portions of the patient's history were reviewed and updated as appropriate: allergies, current medications, past family history, past medical history, past social history, past surgical history and problem list. Past Surgical History: Procedure Laterality Date BREAST SURGERY CARDIAC CATHETERIZATION Cardiac catheterization - LV Cors Left 01/27/2021 Performed by Mckenna Pena MD at [facility] CARDIAC CATH LABS CORONARY ANGIOPLASTY WITH STENT PLACEMENT CORONARY ANGIOPLASTY WITH STENT PLACEMENT 02/03/2023 Coronary fractional flow reserve N/A 01/27/2021 Performed by Mckenna Pena MD at [facility] CARDIAC CATH LABS DILATION AND CURETTAGE OF UTERUS KNEE SURGERY Left ventriculogram or left ventricular pressure only N/A 01/27/2021 Performed by Mckenna Pena MD at [facility] CARDIAC CATH LABS Past Medical History: Diagnosis Date Allergic Arthritis Back pain CAD (coronary artery disease) Chest pain CHF (congestive heart failure) ([facility]) Depression Depression GERD (gastroesophageal reflux disease) History of DVT (deep vein thrombosis) Hyperlipidemia Hypertension Meniscal injury right Myocardial infarction ([facility]) Obesity Osteoporosis Vitamin D deficiency Immunization History Administered Date(s) Administered COVID-19, mRNA, LNP-S, PF, 30mcg/0.3mL Dose 07/17/2020, 08/07/2020 DTP 04/30/2020 H1N1 Nasal 04/26/2009 REVIEW OF SYSTEMS: Review of Systems HENT: Negative. Eyes: Negative for visual disturbance. Respiratory: Negative for chest tightness and shortness of breath. Cardiovascular: Negative for palpitations. Gastrointestinal: Negative. Endocrine: Negative. Genitourinary: Negative for menstrual problem and pelvic pain. Musculoskeletal: Negative. Skin: Negative. Allergic/Immunologic: Negative. Neurological: Negative for syncope and facial asymmetry. Hematological: Does not bruise/bleed easily. Psychiatric/Behavioral: Negative. PHYSICAL EXAMINATION: Vitals: 10/04/23 1514 BP: 132/80 BP Site: Left Arm BP Postition: Sitting Pulse: 80 Resp: 20 Temp: 36.7 C (98 F) TempSrc: Oral SpO2: 93% Weight: (!) 182.5 kg (402 lb 6.4 oz) Height: 170.2 cm (5' 7 ) Patient noted to have elevated BMI and the following intervention(s) were applied: encouragement to exercise. Physical Exam Vitals and nursing note reviewed. Constitutional: General: She is not in acute distress. Appearance: She is well-developed. She is not diaphoretic. HENT: Head: Normocephalic and atraumatic. Right Ear: Tympanic membrane and external ear normal. Left Ear: Tympanic membrane and external ear normal. Nose: Nose normal. Mouth/Throat: Mouth: Mucous membranes are moist. Pharynx: No oropharyngeal exudate. Eyes: General: Right eye: No discharge. Left eye: No discharge. Conjunctiva/sclera: Conjunctivae normal. Pupils: Pupils are equal, round, and reactive to light. Neck: Thyroid: No thyromegaly. Vascular: No JVD. Cardiovascular: Rate and Rhythm: Normal rate and regular rhythm. Heart sounds: Normal heart sounds. No murmur heard. No friction rub. No gallop. Pulmonary: Effort: Pulmonary effort is normal. Breath sounds: Normal breath sounds. Abdominal: General: Bowel sounds are normal. There is no distension. Palpations: Abdomen is soft. There is no mass. Tenderness: There is no abdominal tenderness. Musculoskeletal: General: Normal range of motion. Cervical back: Normal range of motion and neck supple. Lymphadenopathy: Cervical: No cervical adenopathy. Skin: General: Skin is warm and dry. Capillary Refill: Capillary refill takes less than 2 seconds. Neurological: Mental Status: She is alert and oriented to person, place, and time. Deep Tendon Reflexes: Reflexes are normal and symmetric. Psychiatric: Mood and Affect: Mood normal. Behavior: Behavior normal. Thought Content: Thought content normal. Judgment: Judgment normal. ASSESSMENT/PLAN: Francisca was seen today for follow-up. Diagnoses and all orders for this visit: Type 2 diabetes mellitus with hyperglycemia, without long-term current use of insulin ([facility]) - Discontinue: semaglutide (OZEMPIC) 0.25 mg or 0.5 mg (2 mg/3 mL) pen injector; Inject 0.5 mg under the skin every 7 days. - semaglutide (OZEMPIC) 0.25 mg or 0.5 mg (2 mg/3 mL) pen injector; Inject 0.5 mg under the skin every 7 days. Mixed hyperlipidemia - atorvastatin (LIPITOR) 40 mg tablet; Take 1 tablet (40 mg total) by mouth in the morning. Bilateral lower extremity edema - furosemide (LASIX) 40 mg tablet; TAKE 1 TABLET BY MOUTH DAILY Benign essential HTN - losartan (COZAAR) 25 mg tablet; Take 1 tablet (25 mg total) by mouth in the morning. - metoprolol succinate XL (TOPROL XL) 25 mg 24 hr tablet; TAKE 1 TABLET BY MOUTH IN THE MORNING Osteoarthritis of multiple joints, unspecified osteoarthritis type - meloxicam (MOBIC) 15 mg tablet; Take 1 tablet (15 mg total) by mouth in the morning. Itching - hydrOXYzine (ATARAX) 10 mg tablet; Take 1 tablet (10 mg total) by mouth every 8 (eight) hours as needed for itching. 1. HTN. Continue amlodipine, metoprolol, losartan 2. Type 2 DM A1c 5.9% Discontinue Victoza. Start Ozempic weekly subcutaneous as directed Encourage routine home blood sugar monitoring, diet modification, and exercise regimen. Yearly eye exams or as directed by eye provider Daily self skin foot checks Weight loss 3. Mixed hyperlipidemia Continue atorvastatin 4. Depression Depression: At risk (10/04/2023) PHQ-2 PHQ-2 Score: 5 States she stopped fluoxetine 60 mg over one week ago and actually feels somewhat better. Has been going outdoors on warm days and enjoying the sunshine. She would like to try going without fluoxetine at this time. 5. Vitamin D deficiency Check D level in office today Continue D3 2,000 units oral daily 6. Osteoarthritis, multiple joints. Reorder Mobic. 7. Bilateral lower extremity edema Reorder furosemide Body mass index is 63.02 kg/m . Patient noted to have elevated BMI and the following intervention(s) were applied: Discussed current weight today. Consider healthy food choices, portion control. Avoid sugary beverages and high concentrated sweets. Routine exercise regimen encouraged. ALL QUESTIONS ANSWERED Total time spent was 30 minutes: Preparing to see the patient (e.g., review of tests) Obtaining and/or reviewing separately obtained history Performing a medically appropriate examination and/or evaluation Counseling and educating the patient/family/caregiver Ordering medications, tests, or procedures Follow-up: 3 months LENNY Kelly 10/04/23 1710 documented in this encounter [facility]10[facility]23 History of Presen t illness Narrative Images from the original note were not included. [address] [facility] [address] SUBJECTIVE: Patient ID: Francisca Kumar is a 63 y.o. female. Chief Complaint Patient presents with Hypertension Ear,sore throat. 08/05 Presents for follow up States she had COVID-19 in June. Relates she did get better but now has a sinus infection. Symptoms started one week ago. Hypertension This is a chronic problem. The problem is controlled. Pertinent negatives include no chest pain, palpitations, peripheral edema or shortness of breath. Risk factors for coronary artery disease include diabetes mellitus, dyslipidemia, family history, obesity, post-menopausal state and smoking/tobacco exposure. Past treatments include beta blockers and calcium channel blockers. The current treatment provides significant improvement. Hypertensive end-organ damage includes CAD/WY and left ventricular hypertrophy. Diabetes She presents for her initial diabetic visit. She has type 2 diabetes mellitus. There are no diabetic associated symptoms. Pertinent negatives for diabetes include no chest pain. There are no hypoglycemic complications. Diabetic complications include heart disease. Risk factors for coronary artery disease include diabetes mellitus, dyslipidemia, family history, hypertension, obesity, post-menopausal and tobacco exposure. When asked about current treatments, none were reported. She is following a generally healthy diet. She participates in exercise intermittently. Depression Visit: Follow-up Initial visit: Symptoms: decreased concentration Symptoms: no chest pain, no palpitations and no shortness of breath Follow-up visit: Symptoms: decreased concentration, depressed mood, malaise, muscle tension and nervous/anxious Frequency: Most days Severity: Moderate Current Treatment: SSRI's Response to treatment: Worsening Sinusitis This is a new problem. The current episode started in the past 7 days. The problem has been gradually worsening since onset. There has been no fever. Her pain is at a severity of 5/10. The pain is moderate. Associated symptoms include chills, congestion, coughing, ear pain, headaches, a hoarse voice, neck pain, shortness of breath, sinus pressure, a sore throat and swollen glands. Past treatments include oral decongestants. The treatment provided no relief. The following portions of the patient's history were reviewed and updated as appropriate: allergies, current medications, past family history, past medical history, past social history, past surgical history and problem list. Past Surgical History: Procedure Laterality Date BREAST SURGERY CARDIAC CATHETERIZATION Cardiac catheterization - LV Cors Left 01/27/2021 Performed by Mckenna Pena MD at [facility] CARDIAC CATH LABS CORONARY ANGIOPLASTY WITH STENT PLACEMENT CORONARY ANGIOPLASTY WITH STENT PLACEMENT 02/03/2023 Coronary fractional flow reserve N/A 01/27/2021 Performed by Mckenna Pena MD at [facility] CARDIAC CATH LABS DILATION AND CURETTAGE OF UTERUS KNEE SURGERY Left ventriculogram or left ventricular pressure only N/A 01/27/2021 Performed by Mckenna Pena MD at [facility] CARDIAC CATH LABS Past Medical History: Diagnosis Date Allergic Arthritis Back pain CAD (coronary artery disease) Chest pain CHF (congestive heart failure) ([facility]) Depression Depression GERD (gastroesophageal reflux disease) History of DVT (deep vein thrombosis) Hyperlipidemia Hypertension Meniscal injury right Myocardial infarction ([facility]) Obesity Osteoporosis Vitamin D deficiency Immunization History Administered Date(s) Administered COVID-19, mRNA, LNP-S, PF, 30mcg/0.3mL Dose 07/17/2020, 08/07/2020 DTP 04/30/2020 H1N1 Nasal 04/26/2009 REVIEW OF SYSTEMS: Review of Systems Constitutional: Positive for chills. Negative for fever. HENT: Positive for congestion, ear pain, hoarse voice, postnasal drip, sinus pressure, sore throat and voice change. Eyes: Negative for visual disturbance. Respiratory: Positive for cough, shortness of breath and wheezing. Negative for chest tightness. Gastrointestinal: Negative. Endocrine: Negative. Genitourinary: Negative for menstrual problem and pelvic pain. Musculoskeletal: Positive for neck pain. Skin: Negative. Allergic/Immunologic: Negative. Neurological: Positive for headaches. Negative for syncope and facial asymmetry. Hematological: Does not bruise/bleed easily. Psychiatric/Behavioral: Negative. PHYSICAL EXAMINATION: Vitals: 08/10/23 1538 BP: 140/80 BP Site: Left Arm BP Postition: Sitting Pulse: 74 Temp: 36.6 C (97.9 F) TempSrc: Oral SpO2: 97% Weight: (!) 173.5 kg (382 lb 6.4 oz) Height: 170.2 cm (5' 7 ) Patient noted to have elevated BMI and the following intervention(s) were applied: encouragement to exercise. Physical Exam Vitals and nursing note reviewed. Constitutional: General: She is not in acute distress. Appearance: She is well-developed. She is not diaphoretic. HENT: Head: Normocephalic and atraumatic. Right Ear: External ear normal. Tympanic membrane is erythematous. Left Ear: External ear normal. Tympanic membrane is erythematous. Nose: Nasal tenderness and congestion present. Right Turbinates: Swollen. Left Turbinates: Swollen. Right Sinus: Maxillary sinus tenderness and frontal sinus tenderness present. Left Sinus: Maxillary sinus tenderness and frontal sinus tenderness present. Mouth/Throat: Mouth: Mucous membranes are moist. Pharynx: No oropharyngeal exudate. Comments: Erythema. Post nasal drainage Eyes: General: Right eye: No discharge. Left eye: No discharge. Conjunctiva/sclera: Conjunctivae normal. Pupils: Pupils are equal, round, and reactive to light. Neck: Thyroid: No thyromegaly. Vascular: No JVD. Cardiovascular: Rate and Rhythm: Normal rate and regular rhythm. Heart sounds: Normal heart sounds. No murmur heard. No friction rub. No gallop. Pulmonary: Effort: Pulmonary effort is normal. Breath sounds: Wheezing present. Abdominal: General: Bowel sounds are normal. There is no distension. Palpations: Abdomen is soft. There is no mass. Tenderness: There is no abdominal tenderness. Musculoskeletal: General: Normal range of motion. Cervical back: Normal range of motion and neck supple. Lymphadenopathy: Cervical: No cervical adenopathy. Skin: General: Skin is warm and dry. Capillary Refill: Capillary refill takes less than 2 seconds. Neurological: Mental Status: She is alert and oriented to person, place, and time. Deep Tendon Reflexes: Reflexes are normal and symmetric. Psychiatric: Mood and Affect: Mood normal. Behavior: Behavior normal. Thought Content: Thought content normal. Judgment: Judgment normal. ASSESSMENT/PLAN: Francisca was seen today for hypertension. Diagnoses and all orders for this visit: Type 2 diabetes mellitus with hyperglycemia, without long-term current use of insulin ([facility]) - POCT Hemoglobin A1c - liraglutide (VICTOZA 3-MELLY) 0.6 mg/0.1 mL (18 mg/3 mL) pen injector; Inject 0.3 mL (1.8 mg total) under the skin in the morning. Mixed anxiety and depressive disorder - Discontinue: FLUoxetine (PROzac) 40 mg capsule; TAKE 1 CAPSULE BY MOUTH IN THE MORNING - FLUoxetine (PROzac) 60 MG tablet; Take 1 tablet (60 mg total) by mouth in the morning. Bilateral lower extremity edema - furosemide (LASIX) 40 mg tablet; TAKE 1 TABLET BY MOUTH DAILY Benign essential HTN - metoprolol succinate XL (TOPROL XL) 25 mg 24 hr tablet; TAKE 1 TABLET BY MOUTH IN THE MORNING - losartan (COZAAR) 25 mg tablet; Take 1 tablet (25 mg total) by mouth in the morning. Acute non-recurrent maxillary sinusitis - azithromycin (ZITHROMAX) 250 mg tablet; Take 2 tablets the first day, then 1 tablet daily for 4 days. Osteoarthritis of multiple joints, unspecified osteoarthritis type - meloxicam (MOBIC) 15 mg tablet; Take 1 tablet (15 mg total) by mouth in the morning. Mixed hyperlipidemia - atorvastatin (LIPITOR) 40 mg tablet; Take 1 tablet (40 mg total) by mouth in the morning. Vitamin D deficiency - Vitamin D 25 hydroxy; Future Upper respiratory tract infection, unspecified type - albuterol (PROVENTIL HFA;VENTOLIN HFA) 90 mcg/actuation inhaler; Inhale 2 puffs every 6 (six) hours as needed for wheezing for up to 30 days. - predniSONE (DELTASONE) 10 mg tablet; Take 1 tablet (10 mg total) by mouth See Admin Instructions. 1 tab 2x daily x3 days, 1 tab daily x3 days, 1/2 tablet daily x4 days Reorder routine medication Sinuitis Had COVID-19 in June Cool mist humidification for congestion, warm salt water gargles as needed for sore throat. Motrin or Tylenol as needed per parcel contractor guidelines for fever or pain. -Start Zpak, Prednisone taper as directed -Pro MDI PRN as directed for shortness of breath and wheezing. 2. HTN. Continue amlodipine, metoprolol, losartan 3. Type 2 DM A1c 5.9%, was 6.4% Relates she is taking Victoza 1.2 mg daily currently due to when she advanced to 1.7, experienced loose stools. Encourage her to retry in several weeks with advancing to 1.7 Encourage routine home blood sugar monitoring, diet modification, and exercise regimen. Yearly eye exams or as directed by eye provider Daily self skin foot checks 4. Mixed hyperlipidemia Continue atorvastatin 5. Depression Depression rating is zero but patient relates she is experiencing depression symptoms. She is requesting increase of fluoxetine to 60 mg oral daily, as this has benefited in the past. Increase fluoxetine to 60 mg oral daily 6. Vitamin D deficiency Check D level in office today Continue D3 2,000 units oral daily 7. Osteoarthritis, multiple joints. Reorder Mobic. Patient states is effective for pain 8. Bilateral lower extremity edema Reorder furosemide Body mass index is 59.89 kg/m . Patient noted to have elevated BMI and the following intervention(s) were applied: Discussed current weight today. Consider healthy food choices, portion control. Avoid sugary beverages and high concentrated sweets. Routine exercise regimen encouraged. Patient is a current smoker, smoking cessation discussed today in office. He/She is not interested at this time ALL QUESTIONS ANSWERED Total time spent was 40 minutes: Preparing to see the patient (e.g., review of tests) Obtaining and/or reviewing separately obtained history Performing a medically appropriate examination and/or evaluation Counseling and educating the patient/family/caregiver Ordering medications, tests, or procedures Follow-up: 3 months Sooner if needed LENNY Kelly 08/11/23 1037 documented in this encounter [facility] 02-04-2023 Hospital Discharg e instructions Additional Instructions DISCHARGE INSTRUCTIONS FOR ANGIOPLASTY/CORONARY/PERIPHERAL /STENT IMPLANT FOR ADULT ANTICOAGULATION -Since the greatest risk of a blood clot forming with the stent occurs in the first 2-3 weeks after implantation, you will need to take anticoagulants for at least 12-18 months. ANTICOAGULATION MEDICATION Aspirin 81mg once a day, Ticagrelor (Brilinta) 90mg twice a day STATIN MEDICATION Atorvastatin (Lipitor) Drug-Eluting Stent (VIVEK) DO NOT discontinue Brilinta/Aspirin during the first few months regardless of what you are advised by your family doctor or pharmacist, without first calling the precision mechanical instrument maker who implanted the stent. If you require pain relief during this time, please take only ACETAMINOPHEN (TYLENOL)- NO additional aspirin or ibuprofen. DISCHARGE ACTIVITIES ARE FOLLOWS: First week after discharge: -Take it easy at home, no strenuous activity. -Do not lift or pull objects over 10-15 pounds, including children, and groceries for four weeks. If puncture site is at wrist do NOT lift more than three pounds for three days. - May walk up stairs. -May shower. -No excessive scrubbing of the affected site (groin). -May ride in car. -May resume sexual intercourse after 1-2 weeks. -No MRI for 12 days. -May drive in 4-7 days. -If puncture site is at the wrist do not manipulate the wrist for 24 hours, and no soaking wrist for three days. Second Week: -May take a bath -May start walking 3 times a week for 15-20 minutes at a leisurely pace. You should be able to carry on a conversation comfortably without feeling winded. -No strenuous activity as in jogging, running, weight lifting, stair steppers, etc. until the precision mechanical instrument maker approves these activities. Check with the precision mechanical instrument maker on your first follow-up visit. CALL YOUR PHYSICIAN at [phone]: -If bleeding should occur from the catheter insertion site- apply pressure to the site then immediately call us. -Report any fever, redness, drainage, increased swelling, or firmness at the catheter insertion site. Some bruising or slight swelling may be present at the time of discharge. -Should arm or leg become cold, numb, white, or blue, contact the precision mechanical instrument maker immediately. -IF you should experience episodes of angina, e.g. chest discomfort, heaviness, tightness, pressure burning with or without radiation to the neck, jaw, arms or back- use 1 Nitrostat tablet under your tongue every 5-10 minutes and up to three tablets. IF NO RELIEF, CALL 911 or GO TO THE NEAREST EMERGENCY ROOM. -Please notify our office if you have recurrent angina. -[Cardiac Rehab Education Provided. Participation in the Cardiopulmonary Rehabilitation program is recommended. Please call Central Scheduling at [phone] to schedule your appointment.] The attending precision mechanical instrument maker or [facility] nurse clinician should provide you with specific instructions regarding activity, diet, medications, and further follow up for you. Follow the medication instructions provided on your discharge. If the dosages and instructions on this sheet differ from the dosage and instructions on the bottle, follow the instructions on the bottle. [facility] is not responsible for incorrect prescription information provided by the patient during their visit. Do not stop your medications without consulting your health care provider. Please take the list with you to your next doctor's appointment. [facility] Work Phone: 02-03-2023 History and physi denise note Note Date/Time February 03, 2023 2:09am [facility] [address] [place] [address] Cardiology H&P Signed Patient: Francisca Kumar MR#: [id number] : 1960 Acct:[id number] Age/Sex: 63 / F Adm Date: 3 Loc: CL Room: Type: [facility] Attending Dr: Jesse Lombardo DO Copies to: NON STAFF Jesse Lombardo DO~ Date of Service: 02/03/2023 Cardiology HPI History of Present Illness Chief complaint: Inferolateral STEMI HPI: Ms. Kumar is a 63 year old female admitted in transfer from [facility] with acute onset angina earlier this evening, ECG transmitted by [facility] to [facility] and to my phone directly revealing acute inferolateral ST elevation injury current. Patient arrived and received appropriate upstream antithrombotic and antiplatelet therapy is under my direction, and was transferred to the [facility] for emergent intervention. Patient arrived in ER at 0130, [facility] at 0155 after receiving appropriate upstream antithrombotic and antiplatelet therapies, and underwent PCI of infarctvessel at 0227. Past medical history is noted for ASHD, previous PCI of unknown vessel approximately 10 years ago, hypertension, morbid obesity, history of right femoral DVT in 1988 Patient arrives with accelerated hypertension initially 215/91, tachycardia withongoing chest pain and [address] elevation injury current in the inferolateral leads. There is no evidence of cardiogenic shock Patient's breathing comfortably on nasal cannula Total 60 minutes nonprocedural critical care time were devoted to ER staff, CathLab staff, nursing staff, patient and family both pre and post procedurally Review of Systems Review of Systems All other systems reviewed & are negative unless noted below or in HPI Constitutional Constitutional: Reports as per HPI Cardiovascular Cardiovascular: Reports as per HPI, Reports chest pain at rest and Reports orthopnea Respiratory Respiratory: Reports as per HPI and Reports dyspnea Gastrointestinal Gastrointestinal: Reports system reviewed and no additional complaints, except as documented Genitourinary Genitourinary: Reports system reviewed and no additional complaints, except as documented Musculoskeletal Musculoskeletal: Reports limited range of motion Integumentary/Breasts Skin/Breast: Reports system reviewed and no additional complaints, except as documented Neurologic Neurologic: Reports system reviewed and no additional complaints, except as documented [facility] Medical History (Updated 02/03/23 @ 02:57 by Ru Johnson Jr, MD) Arthritis CHF (congestive heart failure) Femoral vein thrombosis, right 1989 Heart attack HTN (hypertension) Surgical History (Updated 02/03/23 @ 02:09 by Jesse Lombardo DO) H/O heart artery stent Meds Medications and Allergies Allergies diphenhydramine [From Benadryl] Allergy (Verified 02/03/23 01:38) Anaphylaxis hepatitis B virus vaccine Allergy (Verified 02/03/23 01:38) Anaphylaxis latex Allergy (Verified 02/03/23 01:38) Difficulty Breathing Exam Physical Exam Vital Signs: Temp Pulse Resp BP Pulse Ox O2 Del Method O2 Flow Rate 97.7 F 84 18 215/91 H 97 Nasal Cannula 2 02/03/23 01:36 02/03/23 01:47 02/03/23 01:36 02/03/23 01:47 02/03/23 01:36 02/03/23 01:36 02/03/23 01:36 Const General: cooperative Nutritional Appearance: obese Orientation: alert, awake and oriented x3 HEENT Head: normal to inspection Eyes General: appearance normal, both eyes and all related structures Neck Neck: normal visual inspection Chest Chest palpation & inspection: normal inspection of the chest Resp Effort & Inspection: normal respiratory effort Auscultation: clear to auscultation bilaterally Cardio Palpation: normal PMI Rate: tachycardic Rhythm: regular rhythm Heart Sounds: S1 normal and S2 normal Pulses: radial pulses present GI Inspection: large pannus and obesity Skin General: no rashes or lesions noted Neuro General: patient alert, patient awake and patient oriented x3 Cognition: normal cognition Speech: speech normal Extrem General: no clubbing, cyanosis or edema Results Labs 02/03/23 01:41 02/03/23 01:41 Lab results: CBC 02/03/23 Range/Units 01:41 RBC 5.30 H (3.60-5.00) X10E6/uL Hgb 15.1 (11.8-15.4) g/dL Hct 45.2 (34.0-46.4) % Plt Count 207 (150-450) x10E3/uL Neut # (Auto) 10.1 H (1.8-7.7) x10E3/uL Lymph # (Auto) 2.0 (1.00-4.8) x10E3/uL Porter # (Auto) 0.6 (0.0-0.8) x10E3/uL Eos # (Auto) 0.3 (0.0-0.45) x10E3/uL Baso # (Auto) 0.1 (0.0-0.2) x10E3/uL Intake and Output 02/02/23 02/02/23 02/03/23 15:59 23:59 07:59 Other: Weight 187.8 kg Patient Weight 02/03/23 23:59 Weight 187.8 kg Lab 02/03/23 01:41 PT 10.3 INR 0.9 EKG Interpretations EKG EKG results cardiology: sinus rhythm EKG shows: tachycardia [place], pacemaker, normal Myocardial infarction: inferior [place] (acute or recent) A&P - Cardiology (1) ST elevation myocardial infarction (STEMI) of inferior wall: Code(s): I21.19 - ST elevation (STEMI) myocardial infarction involving other coronary artery of inferior wall (2) Morbid obesity: Code(s): E66.01 - Morbid (severe) obesity due to excess calories (3) Accelerated hypertension: Code(s): I10 - Essential (primary) hypertension (4) Femoral vein thrombosis, right: Code(s): I82.411 - Acute embolism and thrombosis of right femoral vein (5) Arthritis: Code(s): M19.90 - Unspecified osteoarthritis, unspecified site (6) H/O heart artery stent: Code(s): Z95.5 - Presence of coronary angioplasty implant and graft Documented By: Jesse Lombardo DO 02/03/23202 Signed By: <Electronically signed by Jesse Lombardo DO> 02/03/23302 [facility] Work Phone: 1(595) 947-159907-26-2023 [facility] Author Jesse Lombardo [facility] February 04, 2023 5:03pm Note Date/Time February 04, 2023 5:[address] [facility] [address] [place] [address] Discharge Summary Signed Patient: Francisca Kumar MR#: [id number] : 1960 Acct:[id number] Age/Sex: 63 / F Adm Date: 3 Loc: Room: [address] [place] [address]: Jesse Lombardo DO Copies to: Milton Lombardo DO~ Providers Date of Discharge: 02/04/23 Discharging Provider: Jesse Lombardo Primary Care Provider: Milton Blake Consults: 02/03/23 09:38 Consult to Cardiac Rehabilitation Routine Discharge Diagnosis (1) ST elevation myocardial infarction (STEMI) of inferior wall: (2) Morbid obesity: (3) Accelerated hypertension: (4) Femoral vein thrombosis, right: (5) Arthritis: (6) H/O heart artery stent: Final Diagnosis Final Discharge Diagnosis: 1. Inferolateral STEMI 2. ASHD 3. Primary PCI proximal circumflex with 5 x 26 mm Prabhakar stent 4. History of PCI LAD with widely patent stent 5. Moderate LV dysfunction 6. Morbid obesity 7. Tobacco use/vaping use Summary Hospital Course Hospital course: 63-year-old female admitted 48 hours ago with acute inferolateral STEMI and underwent primary revascularization of the hyperdominant proximal RCA with 5 x 26 mm drug-eluting stent. She has moderate inferobasilar hypokinesis, ejection fraction of 35 to 40%. She had no postoperative complications. During revascularization she had runs of nonsustained VT that normalized after revascularization. Her left coronary system is essentially normal with a widely patent stent placedin [place] several years ago Medications upon discharge are reviewed, compliance with medical therapies, follow-up, cardiac rehab all explained and reviewed; discharge planning x30 minutes. Smoking cessation counseling performed for 3 to 10 minutes Time spent discussing smoking cessation with patient: 3 to 10 minutes Condition Condition at Discharge: Stable Status at Discharge Functional status at discharge: independent ambulation Overall status at discharge: patient is back to baseline Time Spent with Patient Time spent providing/coordinating discharge services (# min): 30 Surgeries and Procedures Operation Date: 02/03/23 01:55 Actual Procedures p CL PCI AMI 1st Vessel RCA VIVEK - Jesse Lombardo DO s CL Coronary Thrombolysis IV - Jesse Lombardo DO s CL AO Ascending w/Heart Cath - Jesse Lombardo DO p CL LHC & COR Angio - Jesse Lombardo Complications Complications: None Diagnostic Studies Completed and Pending Studies Pending studies at discharge: 02/05/23 05:00 ECG 12 lead ECG IN AM Basic Metabolic Panel [CHEM] IN AM Complete Blood Count Auto Diff IN AM 02/06/23 05:00 ECG 12 lead ECG IN AM Basic Metabolic Panel [CHEM] IN AM Complete Blood Count Auto Diff IN AM 02/07/23 05:00 Basic Metabolic Panel [CHEM] IN AM Complete Blood Count Auto Diff IN AM 02/08/23 05:00 Basic Metabolic Panel [CHEM] IN AM Complete Blood Count Auto Diff IN AM Labs on day of discharge: 02/04/23 04:24: PHA Creatinine Clear 106.23, Sodium 137, Potassium 4.4, Chloride 102, Carbon Dioxide 30.1, Anion Gap 9.3, BUN 22, Creatinine 0.99, Est GFR (CKD-EPI) > 60.0, Glucose 144 H, Calcium 8.7, Triglycerides 277 H, Cholesterol 208 H, LDL Cholesterol, Calc 115 H, VLDL Cholesterol 55, HDL Cholesterol 38, Cholesterol/HDL Ratio 5.5 02/04/23 04:24: Corrected WBC 9.8, Uncorrected WBC Count 9.8, RBC 4.80, Hgb 13.6, Hct 41.6, MCV 86.6, MCH 28.4, MCHC 32.8, RDW 16.8 H, Plt Count 203, MPV 10.3, Neut % (Auto) 64.2, Lymph % (Auto) 23.8, Porter % (Auto) 7.0, Eos % (Auto) 4.3, Baso % (Auto) 0.7, Nucleat RBC Rel Count 0.1, Neut # (Auto) 6.3, Lymph # (Auto) 2.3, Porter # (Auto) 0.7, Eos # (Auto) 0.4, Baso # (Auto) 0.1 02/03/23 18:37: Troponin I High Sens 79454.0 H* Exam Physical Exam Vital Signs: Temp Pulse Resp BP Pulse Ox O2 Del Method O2 Flow Rate 98.2 F 66 18 112/69 97 Room Air 2 02/04/23 13:00 02/04/23 13:00 02/04/23 13:00 02/04/23 13:00 02/04/23 13:00 02/04/23 13:00 02/04/23 08:00 Const General: cooperative Nutritional Appearance: obese Orientation: alert, awake and oriented x3 HEENT Head: normal to inspection Eyes General: appearance normal, both eyes and all related structures Neck Neck: normal visual inspection Chest Chest palpation & inspection: normal inspection of the chest Resp Effort & Inspection: normal respiratory effort Auscultation: clear to auscultation bilaterally Cardio Palpation: normal PMI Rate: tachycardic Rhythm: regular rhythm Heart Sounds: S1 normal and S2 normal Pulses: radial pulses present GI Inspection: large pannus and obesity Skin General: no rashes or lesions noted Neuro General: patient alert, patient awake and patient oriented x3 Cognition: normal cognition Speech: speech normal Extrem General: no clubbing, cyanosis or edema Discharge Plan Discharge Plan Patient Disposition: Home Diet: Low-Cholesterol Additional Instructions: DISCHARGE INSTRUCTIONS FOR ANGIOPLASTY/CORONARY/PERIPHERAL/STENT IMPLANT FOR ADULT ANTICOAGULATION -Since the greatest risk of a blood clot forming with the stent occurs in the first 2-3 weeks after implantation, you will need to take anticoagulants for at least 12-18 months. ANTICOAGULATION MEDICATION Aspirin 81mg once a day, Ticagrelor (Brilinta) 90mg twice a day STATIN MEDICATION Atorvastatin (Lipitor) Drug-Eluting Stent (VIVEK) DO NOT discontinue Brilinta/Aspirin during the first few months regardless of what you are advised by your family doctor or pharmacist, without first calling the precision mechanical instrument maker who implanted the stent. If you require pain relief during this time, please take only ACETAMINOPHEN (TYLENOL)- NO additional aspirin or ibuprofen. DISCHARGE ACTIVITIES ARE FOLLOWS: First week after discharge: -Take it easy at home, no strenuous activity. -Do not lift or pull objects over 10-15 pounds, including children, and groceries for four weeks. If puncture site is at wrist do NOT lift more than three pounds for three days. - May walk up stairs. -May shower. -No excessive scrubbing of the affected site (groin). -May ride in car. -May resume sexual intercourse after 1-2 weeks. -No MRI for 12 days. -May drive in 4-7 days. -If puncture site is at the wrist do not manipulate the wrist for 24 hours, and no soaking wrist for three days. Second Week: -May take a bath -May start walking 3 times a week for 15-20 minutes at a leisurely pace. You should be able to carry on a conversation comfortably without feeling winded. -No strenuous activity as in jogging, running, weight lifting, stair steppers, etc. until the precision mechanical instrument maker approves these activities. Check with the precision mechanical instrument maker on your first follow-up visit. CALL YOUR PHYSICIAN at [phone]: -If bleeding should occur from the catheter insertion site- apply pressure to the site then immediately call us. -Report any fever, redness, drainage, increased swelling, or firmness at the catheter insertion site. Some bruising or slight swelling may be present at the time of discharge. -Should arm or leg become cold, numb, white, or blue, contact the precision mechanical instrument maker immediately. -IF you should experience episodes of angina, e.g. chest discomfort, heaviness, tightness, pressure burning with or without radiation to the neck, jaw, arms or back- use 1 Nitrostat tablet under your tongue every 5-10 minutes and up to three tablets. IF NO RELIEF, CALL 911 or GO TO THE NEAREST EMERGENCY ROOM. -Please notify our office if you have recurrent angina. -[Cardiac Rehab Education Provided. Participation in the Cardiopulmonary Rehabilitation program is recommended. Please call Central Scheduling at [phone] to schedule your appointment.] The attending precision mechanical instrument maker or [facility] nurse clinician should provide you with specific instructions regarding activity, diet, medications, and further follow up for you. Follow the medication instructions provided on your discharge. If the dosages and instructions on this sheet differ from the dosage and instructions on the bottle, follow the instructions on the bottle. [facility] is not responsible for incorrect prescription information provided by thepatient during their visit. Do not stop your medications without consulting your health care provider. Please take the list with you to your next doctor's appointment. Instructions: Heart Failure, Adult (DC), Coronary Angioplasty (DC), Coronary Stenting (DC), Angina (DC), Chest Pain (DC), Drug Eluting Stents Prescriptions: New Brilinta 90 mg Tablet 90 mg PO BID 90 Days Qty: 180 3RF atorvastatin 40 mg Tablet 40 mg PO QPM 30 Days Qty: 30 12RF losartan 25 mg Tablet 25 mg PO QAM 30 Days Qty: 30 12RF nitroglycerin 0.4 mg Tablet, Sublingual 0.4 mg sublingual Q5M PRN (Reason: Chest Pain) 30 Days Qty: 25 3RF Continued fexofenadine 30 mg Tablet 30 mg PO 1XD fluoxetine 10 mg capsule 10 mg PO 1XD metoprolol succinate 25 mg tablet extended release 24 hr 25 mg PO 1XD cholecalciferol (vitamin D3) [Vitamin D3] 50 mcg (2,000 unit) Tablet 50 mcg PO DAILY aspirin 81 mg Capsule 81 mg PO DAILY Changed furosemide 40 mg tablet 40 mg PO 1XD PRN (Reason: weight gain) 30 Days Qty: 30 0RF potassium chloride 10 mEq tablet extended release 10 meq PO 1XD PRN (Reason: with Lasix ) 30 Days Qty: 30 3RF Discontinued meloxicam 15 mg tablet 15 mg PO DAILY amlodipine 5 mg tablet 5 mg PO 1XD rosuvastatin 20 mg tablet 20 mg PO 1XD Follow Up: Jesse Lombardo DO [Active Staff - D.O.] - 02/09/23 11:40 am Documented By: Jesse Lombardo DO 02/04/23 1700 Signed By: <Electronically signed by Jesse Lombardo DO> 02/04/23 1703 [facility] Work Phone: Evaluation note* Diagnosis Onset Date Resolution Status Accelerated hypertension acu te Arthritis acute Femoral vein thrombosis, right acute H/O heart artery stent acute Morbid obesity acute ST elevation myocardial infa rction (STEMI) of inferior wall acute [facility] Work Phone: Evaluation note* Diagnosis Benign essential HTN Hypokalemia Hypopotassemia Bilateral lower extremity edema Type 2 diabetes mellitus with hyperglycemia, without long-term current use of insulin ([facility])- Primary [facility] Diagnosis Type 2 diabetes mellitus with hyperglycemia, without long-term current use of insulin ([facility])- Primary Mixed anxiety and depressive disorder Dysthymic disorder Bilateral lower extremity edema Benign essential HTN Acute non-recurrent maxillary sinusitis Osteoarthritis of multiple joints, unspecified osteoarthritis type Mixed hyperlipidemia Vitamin D deficiency Upper respiratory tract infection, unspecified type documented in this encounter [facility]* Diagnosis Type 2 diabetes mellitus with hyperglycemia, without long-term current use of insulin ([facility]) [facility] Diagnosis Type 2 diabetes mellitus with hyperglycemia, without long-term current use of insulin ([facility]) documented in this encounter [facility]* Diagnosis Type 2 diabetes mellitus with hyperglycemia, without long-term current use of insulin ([facility])- Primary Mixed hyperlipidemia Bilateral lower extremity edema Benign essential HTN Osteoarthritis of multiple joints, unspecified osteoarthritis type Itching Unspecified pruritic disorder documented in this encounter [facility]* Diagnosis Type 2 diabetes mellitus with hyperglycemia, without long-term current use of insulin ([facility]) documented in this encounter [facility]* Diagnosis Neuropathy Mononeuritis of unspecified site documented in this encounter [facility] SystemInstructionsNot on filedocumented in this encounter [facility] SystemInstructions* Attachments The following attachments cannot be sent through Care Everywhere. * Sinusitis in adults (Dutch) [facility] SystemInstructionsNot on file documented in this encounterProSum[facility] SystemInstructionsNot on file documented in [facility] SystemInst[facility]* Attachments The following attachments cannot be sent through Care Everywhere. * Coronary artery disease (Dutch) [facility] SystemInstructionsNot on file documented [facility] Summary Purpose Family History Relationship Condition Age at Onset Recorded Date/T braden father Myocardial infarction Unknown Malignant neoplasm of lung Unknown Not Specified Malignant neoplasm of breast Unknown Advance Directives Advance Directive Response Recorded Date/ Time Advance Directives No September 30 018 11:48am Chief Complaint and Reason for Visit Chief Complaint STEMI Reason for Visit Accelerated hyperten swapnil Arthritis Femoral vein thrombosis, right H/O heart artery stent Morbid obesity ST elevation myocardial infarction (STEMI) of inferior wall Reason for Referral Specialty Diagnoses / Procedures Referred By Contac t Referred To Contact Diagnoses Mixed anxiety and depressive disorder Milton Blake, MANAGER [employer]ACKAGING[employer] [address] [place] [address] Referral ID Status Reason Start Date Expiration Date V isits Requested Visits Authorized [id number] Pending Review 1 1 Additional Source Comments INFORMATION SOURCE (unrecogn ized section and content) DATE CREATED AUTHOR 02/19/2019 [facility] DATE CREATED AUTHOR AUTHOR'S ORGANIZ ATION 12/03/2021 [facility] DATE CREATED AUTHOR AUTHOR'S ORGANIZ ATION 12/24/2021 [facility] DATE CREATED AUTHOR AUTHOR'S ORGANIZ ATION 03/11/2023 [facility] DATE CREATED AUTHOR AUTHOR'S ORGANIZ ATION 08/15/2023 [facility] DATE CREATED AUTHOR AUTHOR'S ORGANIZ ATION 04/11/2024 [facility] Care Teams (unrecognized sec tion and content) Team Status: Active Member Role Status Dates Milton Blake , FINAL ASSEMBLY INSPECTOR-C Primary Care Provider Active Team Status: Inactive Member Role Status Dates Ru Johnson Jr, MD Emergency Provider Active W Real Lombardo , Admit Provider, Attending Provide r Active Milton Blake , FINAL ASSEMBLY INSPECTOR-C Primary Care Provider Active Equal Opportunity Counselor Relationship Specialty Start Date End Date Milton Blake APRN-[employer] [address] [place] [address] PCP - General Family Medicine 12/21/22 Equal Opportunity Counselor Relationship Specialty Start Date End Date Milton Blake APRN-[employer] [address] [place] [address] PCP - General Family Medicine 12/21/22 Equal Opportunity Counselor Relationship Specialty Start Date End Date Milton Blake APRN-PAZ [address] [place] [address] PCP - General Family Medicine 12/21/22 Equal Opportunity Counselor Relationship Specialty Start Date End Date Milton Blake APRN-[employer] [address] [place] [address] PCP - General Family Medicine 12/21/22 Equal Opportunity Counselor Relationship Specialty Start Date End Date Celia Blakee AlenaRAMON-PAZ [address] [place] [phone] PCP - General Family Medicine 12/21/22 Equal Opportunity Counselor Relationship Specialty Start Date End Date Milton BlakeRAMONASSISTANT MEN'S LA[employer] [address] [place] [address] PCP - General Family Medicine 12/21/22 Equal Opportunity Counselor Relationship Specialty Start Date End Date Milton BlakeRAMONASSISTANT MEN'S LACR[employer]SE [employer] [address] [place] [address] PCP - General Family Medicine 12/21/22 Reason for Visit (unrecogniz ed section and content) Reason Comments Med Refill Reason Comments Hypertension Ear,sore throat. Reason Comments Follow-up FOR RECORDS PERTAINING TO PATIENTS WHO ARE OR HAVE BEEN ENROLLED IN A CHEMICAL DEPENDENCY/SUBSTANCEABUSE PROGRAM, SOME INFORMATION MAY BE OMITTED. This clinical summary was aggregated from multiple sources. Caution should be exercised in using it in the provision of clinical care. This summary normalizes information from multiple sources, and as a consequence, information in this document may materially change the coding, format and clinical context of patient data. In addition, data may be omitted in some cases. CLINICAL DECISIONS SHOULD BE BASED ON THE PRIMARY CLINICAL RECORDS. [facility] [employer] provides no warranty or guarantee of the accuracy or completeness of information in this document.
--- NOTE | 2024-06-09 17:51 | ED.CHESTPAI1 ---
HPI - Chest Pain General Chief Complaint: Chest Pain Stated Complaint: CHEST PAIN Time Seen by Provider: 06/09/24 17:43 Source: patient Mode of arrival: walk-in Limitations: no limitations History of Present Illness HPI narrative: Patient is a 64-year-old female with a history of STEMI 1 year ago, coronary artery disease with stents x 2 who presents to the ER for evaluation of left chest pain radiating into the left shoulder blade that began while she was at work giving report just prior to arrival. She denies shortness of breath. She had 1 stent placed 1 year ago with her STEMI at [facility] with Dr. Lombardo. She states 5 years prior she had an abnormal stress test and had her first stent placed. She takes aspirin, metoprolol, Atorvastatin. She states she is on Ozempic for weight loss but is not diabetic. She quit smoking cigarettes 1 year ago and currently vapes. She denies fevers, chills, nausea, vomiting. She does have a history of peripheral edema. Related Data Allergies Allergy/AdvReac Type Severity Reaction Status Date / Time diphenhydramine (From AdvReac Severe Anaphylaxis Verified 06/09/24 17:34 Benadryl) lisinopril AdvReac Severe Cough Verified 06/09/24 17:34 Review of Systems ROS Constitutional Denies: fever or chills Ears, nose, mouth, and throat Denies: throat pain Cardiovascular Reports: chest pain Respiratory Denies: shortness of breath Gastrointestinal Denies: nausea or vomiting Musculoskeletal Reports: back pain; Denies: neck pain Integumentary/Breast Denies: rash Neurological Denies: numbness in extremities or weakness in extremities Hematologic/Lymphatic Denies: easy bruising or easy bleeding PFSH PFSH Social History Little interest or pleasure in doing things: not at all Feeling down, depressed, or hopeless: not at all Exam Narrative Exam Narrative: Gen.: Awake, alert, in no distress Head: Normocephalic, atraumatic ENT: Moist mucous membranes Respiratory: No respiratory distress, lungs clear bilaterally Cardio: Regular rate and rhythm Gastrointestinal: Abdomen is soft, nondistended and nontender to palpation Extremities: Moves extremities equally Psych: Normal mood and affect Neuro: No focal neuro deficit Skin: Warm, dry, intact Constitutional Vital Signs, click to edit/add: Last Vital Signs Temp 97.9 F 06/09/24 17:34 Pulse 72 06/09/24 18:35 Resp 18 06/09/24 18:35 BP 143/82 H 06/09/24 18:35 Pulse Ox 97 06/09/24 18:35 O2 Del Method Room Air 06/09/24 17:34 Course Vital Signs Vital signs: Vital Signs Temperature 97.9 F 06/09/24 17:34 Pulse Rate 88 06/09/24 17:34 Respiratory Rate 18 06/09/24 17:34 Blood Pressure 180/88 H 06/09/24 17:34 Pulse Oximetry 98 06/09/24 17:34 Oxygen Delivery Method Room Air 06/09/24 17:34 Temperature 97.9 F 06/09/24 17:34 Pulse Rate 72 06/09/24 18:35 Respiratory Rate 18 06/09/24 18:35 Blood Pressure 143/82 H 06/09/24 18:35 Pulse Oximetry 97 06/09/24 18:35 Oxygen Delivery Method Room Air 06/09/24 17:34 MDM - Chest Pain MDM Narrative Medical decision making narrative: Patient treated with aspirin and 1 sublingual nitro with improvement of blood pressure and significant improvement in pain. She is essentially pain-free throughout her stay in the ER although she does have occasional tingling to the shoulder. 2 troponins are negative, no EKG changes in the ER. Case discussed with Dr. Parra for cardiology at [facility], he is in agreement that the patient is stable for cardiac rule out at this facility with outpatient follow-up as long as she remains stable with no EKG changes or severe development of pain. Discussed with the hospitalist and we will admit to [facility] for observation with telemetry, I discussed this with the nursing boiler house supervisor who is in agreement that the patient is stable for [facility]. Respiratory swabs were obtained as chest x-ray findings show a questionable right middle lobe opacity and possible viral etiology of mild cardiomegaly. The patient has negative COVID, RSV and influenza swabs. She has no fevers, cough or flulike illness. Stable at time of admission to [facility]. SHARED APC VISIT, PHYSICIAN ATTESTATION: [id number] I performed a substantive part of the MDM during the patient?s E/M visit. I personally evaluated and examined the patient. I personally made or approved the documented management plan and acknowledge its risk of complications. Medical Records Data Attestation: I reviewed the patient's medical records. Lab Data Attestation: I reviewed the patient's lab results. Labs: Lab Results 06/09/24 06/09/24 06/09/24 Range/Units 17:58 19:24 19:55 WBC 8.3 (4.0-11.0) 10^3/uL RBC 5.16 (4.20-5.40) 10^6/uL Hgb 14.5 (12.0-16.0) g/dL Hct 45.4 (36.0-48.0) % MCV 88.0 (81.0-99.0) fL MCH 28.1 (26.7-34.0) pg MCHC 31.9 (29.9-35.2) g/dL RDW 14.4 (11.0-15.0) % Plt Count 252 (150-450) 10^3/uL MPV 11.4 (9.5-13.5) fL Neut % (Auto) 62.4 (43.0-75.0) % Lymph % (Auto) 26.4 (20.5-60.0) % Mitchell % (Auto) 6.4 (1.7-12.0) % Eos % (Auto) 3.6 (0.9-7.0) % Baso % (Auto) 1.0 (0.2-2.0) % Neut # (Auto) 5.2 (1.4-6.5) 10^3/uL Lymph # (Auto) 2.2 (1.2-3.8) 10^3/uL Mitchell # (Auto) 0.5 (0.3-0.8) 10^3/uL Eos # (Auto) 0.3 (0.0-0.7) 10^3/uL Baso # (Auto) 0.1 (0.0-0.1) 10^3/uL Abs Immat Gran (auto) 0.02 (0.00-0.03) 10^3/uL Imm/Tot Granulo (auto) 0.2 (0.0-0.5) % PT 10.3 (9.0-11.6) sec INR 0.97 D-Dimer 0.45 (<=0.59) mg/L FEU Sodium 139 (136-145) mmol/L Potassium 3.6 (3.5-5.1) mmol/L Chloride 103 (98-107) mmol/L Carbon Dioxide 27.3 (21.0-32.0) mmol/L Anion Gap 12.3 BUN 19.0 H (7.0-18.0) mg/dL Creatinine 1.27 H (0.55-1.02) mg/dL Est GFR ( Amer) 52 L (>=60 mL/min/1.73m^2) Est GFR (Non-Af Amer) 43 L (>=60 mL/min/1.73m^2) BUN/Creatinine Ratio 15.0 Glucose 167 H (74-106) mg/dL Calcium 8.7 (8.5-10.1) mg/dL Total Bilirubin 0.3 (0.2-1.0) mg/dL AST 17 (15-37) U/L ALT 29 (14-59) U/L Alkaline Phosphatase 130 H (46-116) U/L Troponin I High Sens 13.4 13.0 (4.0-51.3) pg/mL NT-Pro-B Natriuret Pep 276.0 (<=900.0) pg/mL Total Protein 7.2 (6.4-8.2) g/dL Albumin 3.4 (3.4-5.0) g/dL Globulin 3.8 g/dL Albumin/Globulin Ratio 0.9 Lipase 34.0 (16.0-77.0) U/L Influenza Type A Ag Negative Influenza Type B Ag Negative RSV Antigen Not detected (NOT DETECTE) SARS-CoV-2 Ag (CV2AG) Negative (NEGATIVE) Imaging Data Chest x-ray: Attestation: I have reviewed the pertinent imaging results. Radiologist's impression: ITS Impressions Chest X-Ray 06/09/24 18:26 IMPRESSION: 1. Interstitial opacity seen in the infrahilar right lung. Please correlate for pneumonia. 2. Mild cardiomegaly with prominence of interstitial lung markings. Please correlate for fluid overload vs viral etiology. Electronically authenticated by: DEEDEE BRYANT Date: 06/09/2024 19:47 ECG Data Attestation: I personally reviewed and interpreted this ECG as follows: (Normal sinus rhythm at a rate of 83 with occasional PVCs, no acute ST elevation. First-degree AV block noted. EKG reviewed by attending physician.) Heart Score History: Moderately Suspicious ECG: NS Repolarization Age: >45-<65 years Risk Factors: >3 Risk Factors/ HX of CAD:2 Troponin: <Normal Limit Total Heart Score Recommendations & Risks:: 5 Discharge Plan Discharge Chief Complaint: Chest Pain Patient Disposition: Admitted as Observation Time of Disposition Decision: 20:20 Print Language: Yemeni Referrals: Physician,Non-Staff, MD [Physician] - 1 week
[2024-06-09] MEDS: ASPIRIN 81 MG TAB.CHEW 162 MG PO (18:07)
[2024-06-09 18:08] LABS: Basophils Absolute Auto 0.1 10^3/uL (0.0-0.1); Eosinophils Absolute Auto 0.3 10^3/uL (0.0-0.7); Eosinophils Percent Auto 3.6 % (0.9-7.0); Hematocrit 45.4 % (36.0-48.0); Hemoglobin 14.5 g/dL (12.0-16.0); Immature Granulocytes Abs Auto 0.02 10^3/uL (0.00-0.03); Immature Granulocytes Pct Auto 0.2 % (0.0-0.5); Lymphocytes Absolute Auto 2.2 10^3/uL (1.2-3.8); Lymphocytes Percent Auto 26.4 % (20.5-60.0); Mean Corpuscular HGB Conc 31.9 g/dL (29.9-35.2); Mean Corpuscular Hemoglobin 28.1 pg (26.7-34.0); Mean Platelet Volume 11.4 fL (9.5-13.5); Monocytes Absolute Auto 0.5 10^3/uL (0.3-0.8); Monocytes Percent Auto 6.4 % (1.7-12.0); Neutrophils Absolute Auto 5.2 10^3/uL (1.4-6.5); Neutrophils Percent Auto 62.4 % (43.0-75.0); Platelet Count 252 10^3/uL (150-450); Red Blood Count 5.16 10^6/uL (4.20-5.40); Red Cell Distribution Width 14.4 % (11.0-15.0); White Blood Count 8.3 10^3/uL (4.0-11.0)
[2024-06-09] MEDS: NITROGLYCERIN 0.4 MG BOTTLE SL (18:08)
[2024-06-09 18:22] LABS: INR 0.97; Prothrombin Time 10.3 sec (9.0-11.6)
[2024-06-09 18:24] LABS: D Dimer 0.45 mg/L FEU (<=0.59)
--- NOTE | 2024-06-09 18:26 | XR_ITS ---
The [address] [address] Patient Name: TABBY VENCES MRN: [id number] date: 1960 Sex: F Assigned Patient Location: ER Current Patient Location: ER Accession/Order Number: [id number] Exam Date: 06/09/2024 18:36 Report Date: 06/09/2024 19:47 At the request of: WENDY RODRIGUEZ Procedure: XR chest 1V CXR HISTORY: Shortness of breath COMPARISON: None. TECHNIQUE: 1 view of the chest. FINDINGS: Interstitial opacity in infrahilar right lung. Lungs are adequately expanded. The cardiac silhouette measures enlarged. Pulmonary vascularity is increased. Osseous structures are within normal limits for age. XR/XR chest 1V IMPRESSION: 1. Interstitial opacity seen in the infrahilar right lung. Please correlate for pneumonia. 2. Mild cardiomegaly with prominence of interstitial lung markings. Please correlate for fluid overload vs viral etiology. Electronically authenticated by: DEEDEE BRYANT Date: 06/09/2024 19:47
[2024-06-09 18:28] LABS: Alanine Aminotransferase 29 U/L (14-59); Albumin Globulin Ratio 0.9; Albumin Level 3.4 g/dL (3.4-5.0); Alkaline Phosphatase 130 U/L (46-116); Anion Gap 12.3; Aspartate Amino Transferase 17 U/L (15-37); Bilirubin Total 0.3 mg/dL (0.2-1.0); Calcium 8.7 mg/dL (8.5-10.1); Carbon Dioxide 27.3 mmol/L (21.0-32.0); Chloride 103 mmol/L (98-107); Estimated GFR (African America 52 (>=60 mL/min/1.73m^2); Estimated GFR (Non-African Ame 43 (>=60 mL/min/1.73m^2); Globulin 3.8 g/dL; Glucose 167 mg/dL (74-106); Potassium 3.6 mmol/L (3.5-5.1); Sodium 139 mmol/L (136-145); Total Protein 7.2 g/dL (6.4-8.2); Troponin I High Sensitivity 13.4 pg/mL (4.0-51.3)
[2024-06-09 20:16] LABS: Influenza Virus A Antigen Negative; Influenza Virus B Antigen Negative; Internal Control Within Normal Limits; Respiratory Syncytial Virus Not Detected (NOT DETECTE); SARS-CoV-2 Ag NEGATIVE (NEGATIVE)
--- OUTSIDE RECORDS SUMMARY | 2024-06-09 21:13 | XMS_ITS | CCD ---
Author Organization [facility] Care Team Providers Care Basket Patcher Name Role Phone PATRICK YOUSIF Admitting Unavailable PATRICK YOUSIF Attending Unavailable ANABEL MEJIA Referring Unavailable ANABEL MEJIA Primary Care Unavailable [place] Procedure Practitioner Unavailab PATRICK Mullins Surgeon Unavailable JACOB, DEANNA Admitting Unavailable JACOBDEANNA GUSMAN Attending Unavailable MISC, DR GARRIDO Primary Care Unavailable KATIE JAVED Admitting Unavailable KATIE JAVED Consulting Unavailable KATIE JAVED Attending Unavailable TONAC, DR GARRIDO Primary Care Unavailable SALO, DR BRODIE Mcmahon Admitting Unavailable SALO, DR BRODIE Mcmahon Consulting Unavailable SALO, DR BRODIE Mcmahon Attending Unavailable [facility] Primary Care Unava ilMaycol Muller Consulting Unavailable MISC, DR GARRIDO Primary Care Unavailable JACOBDEANNA GUSMAN Admitting Unavailable JACOBDEANNA GUSMAN Attending Unavailable EBRAHEIMESTER Admitting Unavailable EBRAHEIM, ESTER Attending Unavailable EBDESEAN STEELIL Surgeon Unavailable MICHELLE BLACK Primary Care Unavailable MICHELLE BLACK Referring Unavailable [place] Procedure Practitioner Unavailab MD Ru Fabian Jr Emergency Provider DO Jesse Lombardo Admit Provider DO Jesse Lombardo Attending Provider [phone] LUKE Blake Primary Care Provider Milton Blake Primary Care Unavailable Jesse Lombardo Attending Unavailable Jesse Lombardo Admitting Unavailable Hayden FITTING ROOM ATTENDANT-Milton MULLEN Primary Care Provid er MILTON BLAKE [...] sources) Aloe Extract Drug Allergy 5 The [facility] Repository (3 sources) diphenhydrAMINE ; Translations: [BENADRYL] Drug Allergy 3 The [facility] Repository (6 sources) Latex; Translations: [LATEX] Drug allergy (disorder) 4 Difficulty Breathing The [facility] Repository (1 source) hep b vaccine; Translations: [Unknown] Propensity to adverse reactions (disorder) 4 The [facility] (1 source) Garlic preparation Drug Allergy 5 The [facility] Repository (3 sources) strawberry allergenic extract; Translations: [STRAWBERRY] Drug Allergy 5 [facility] Repository (1 source) Hepatitis B Virus Vaccine,Recb Drug allergy (disorder) 7 [facility] Repository (13 sources) HEPATITIS B VIRUS VACCINE; Translations: [HEPATITIS B VIRUS VACCINE] Propensity to adverse reactions (disorder) 0 Anaphylaxis The [facility] Repository (12 sources) diphenhydrAMINE ; Translations: [diphenhydramin e] Drug Allergy [address] [facility] (1 source) Latex Drug allergy (disorder) [address] [facility] Repository (11 sources) Aloe vera preparation; Translations: [ALOE VERA] Drug Allergy 3 Rash [facility] (10 sources) Coconut Oil; Translations: [COCONUT OIL] Drug Allergy 1 [facility] (10 sources) Hepatitis B Surface Antigen Vaccine; Translations: [HEPATITIS B VIRUS VACCINE, RECOMBINANT] Drug Allergy 6 [facility] (8 sources) Latex Propensity to adverse reactions to drug 6 Shortness Of Breath [facility] (10 sources) Silver Nitrate; Translations: [SILVER NITRATE] Drug Allergy [address] [facility] [employer] [facility] (8 sources) strawberry allergenic extract Drug Allergy 0 Shortness Of Breath [facility] (9 sources) diphenhydrAMINE ; Translations: [DIPHENHYDRAMIN E HCL] Drug Allergy 5 Other (See Comments), Anaphylaxis [facility] (9 sources) Hepatitis B Surface Antigen Vaccine; Translations: [HEPATITIS B VACC-CPG 1018 (PF)] Drug Allergy 4 Other (See Comments) [facility] (5 sources) Ethinyl Estradiol / Levonorgestrel; Translations: [LEVONORGESTREL -ETHINYL ESTRAD] Drug Allergy 4 [facility] Medications Current Medications Medication Drug Class(es) Dates Sig (Normalized) Sig (Original) [id number] 200 actuat albuterol 0.09 mg/actuat metered dose [...] hyperglycemia, without long-term current use of insulin ([facility] Use as instructed 1 each 03/03/2023 Active Start: 03-03-2023 blood-glucose meter (glucose monitoring kit) kit Indications: Type 2 diabetes mellitus with hyperglycemia, without long-term current use of insulin ([facility] Use as instructed 1 each 0 03/03/2023 [...] hyperglycemia, without long-term current use of insulin ([facility]) Apply 1 Pad topically in the [...] hyperglycemia, without long-term current use of insulin ([facility]) Inject 0.5 mg under the skin every 7 days. 12 mL 3 04/26/2024 Active Start: 10-04-2023 End: 04-26-2024 semaglutide (OZEMPIC) 0.25 m g or 0.5 mg (2 mg/3 mL) pen injector Indications: Type 2 diabetes mellitus with hyperglycemia, without long-term current use of insulin ([facility]) Inject 0.5 mg under the skin every 7 days. 12 mL 3 10/04/2023 04/26/2024 Discontinued (Reorder) Start: 10-04-2023 semaglutide (O ZEMPIC) 0.25 mg or 0.5 mg (2 mg/3 mL) pen injector Indications: Type 2 diabetes mellitus with hyperglycemia, without long-term current use of insulin ([facility]) Inject 0.5 mg under the skin every 7 days. 12 mL 3 10/04/2023 Active Start: 10-04-2023 End: 10-04-2023 semaglutide (OZEMPIC) 0.25 m g or 0.5 mg (2 mg/3 mL) pen injector Indications: Type 2 diabetes mellitus with hyperglycemia, without long-term current use of insulin ([facility]) Inject 0.5 mg under the skin every [...] hyperglycemia, without long-term current use of insulin ([facility]) INJECT 0.3 mls SUBCUTANEOUSLY IN THE MORNING 3 mL 4 08/31/2023 10/04/2023 Discontinued (Ineffective) Start: 05-16-2023 End: 08-30-2023 liraglutide (VICTOZA 3-MELLY) 0.6 mg/0.1 mL (18 mg/3 mL) pen injector Indications: Type 2 diabetes mellitus with hyperglycemia, without long-term current use of insulin ([facility]) Inject 0.3 mL (1.8 mg total) [...] Coronary atherosclerosis; Translations: [Atherosclerotic heart disease of [place] coronary artery without angina pectoris] Onset: 12-27-2020 [...] 02-03-2023 02-03-2023 Chronic 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; 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] Onset: 10-01-2021 Episodic Other aftercare (1 source) Other intermediate accountant (current) drug therapy; Translations: [OTH PRISON CURRENT DRUG THERAPY] Onset: 10-01-2021 Episodic Other [...] fraction] 5.9 g/dL 4 - 7 g/dL [facility] Vitamin D 25 hydroxyon 08-10 Vitamin D+Metabolites [Mass/Vol] 27.2 ng/mL Low 30 - 100 ng/mL [facility] Comment on above: Vitamin D status 25 [place] Vitamin D Deficiency <20 ng/mL Insufficiency 20-29 ng/mL Sufficiency 30-100 ng/mL Toxicity >100 ng/mL NOTE: A pediatric reference range has not been established by the reed fixer of this kit. The [place] [employer] recommends a Vitamin D level of = or >20ng/mL in infants and children. Vitamin D+Metabolites [Mass/ Vol]on 08-10-2023 Interpretation and review of laboratory results Abnormal [facility] VITAMIN D 25 HYD TOT 27.2 ng/mL Low 30-100 [facility] Comment on above: Result Comment: Vitamin D status 25 [place] Vitamin D Deficiency <20 ng/mL Insufficiency 20-29 ng/mL Sufficiency 30-100 ng/mL Toxicity >100 ng/mL NOTE: A pediatric reference range has not been established by the reed fixer of this kit. The [place] [employer] recommends a Vitamin D level of = or >20ng/mL in infants and children. Performed By: #### 3 [id number] #### [facility] ([id number]) [address] [place] [address], [address] [place] [address] Basic Metabolic Panelon 01-10 Anion gap [Moles/Vol] 9.3 mmol/L Normal 6.0-15.0 [facility] Comment on above: Order Comment: FASTI NG Y Performed By: #### H S TROP #### [facility] [address] [place] [id number] [place] Calcium [Mass/Vol] 8.7 mg/dL Normal 8.6-10.3 [facility] Comment on above: Order Comment: FASTI NG Y Performed By: #### H S TROP #### [facility] [address] [place] [address] [place] Chloride [Moles/Vol] 102 mmol/L Normal 98-107 [facility] Comment on above: Order Comment: FASTI NG Y Performed By: #### H S TROP #### [facility] [address] [place] [address] [place] CO2 [Moles/Vol] 30.1 mmol/L Normal 21.0-31.0 [facility] Comment on above: Order Comment: FASTI NG Y Performed By: #### H S TROP #### [facility] [address] [place] [address] [place] Creatinine [Mass/Vol] 0.99 mg/dL Normal 0.60-1.20 [facility] Comment on above: Order Comment: FASTI NG Y Performed By: #### H S TROP #### [facility] [address] [place] [address] [place] Creatinine Clr Calc Pharmacy 106.23 [facility] Comment on above: Order Comment: FASTI NG Y Performed By: #### H S TROP #### [facility] [address] [place] [address] [place] GFR/1.73 sq M.predicted MDRD (S/P/Bld) [Vol rate/Area] mL/min/{1.73_m2} [facility] Comment on above: Order Comment: FASTI NG Y Performed By: #### H S TROP #### [facility] [address] Glucose [Mass/Vol] 144 mg/dL High 70-100 [facility] Comment on above: Order Comment: FASTI NG Y Result Comment: [place] Glucose Reference Range is dependent on time and content of last meal. Glucose of more than 200 mg/dL in a nonstressed, ambulatory subject supports the diagnosis of Diabetes Mellitus. ADA recommended reference range Performed By: #### H S TROP #### [facility] [address] Potassium [Moles/Vol] 4.4 mmol/L Normal 3.5-5.1 [facility] Comment on above: Order Comment: FASTI NG Y Performed By: #### H S TROP #### [facility] [address] [place] [address] [place] Sodium [Moles/Vol] 137 mmol/L Normal 136-145 [facility] Comment on above: Order Comment: FASTI NG Y Performed By: #### H S TROP #### [facility] [address] [place] [address] [place] Urea nitrogen [Mass/Vol] 22 mg/dL Normal 7-[address] [facility] Comment on above: Order Comment: FASTI NG Y Performed By: #### H S TROP #### [facility] [address] [place] [address] [place] Basophils Auto (Bld) [#/Vol] Ordered By: Jesse Lombardo on 02-04-2023 Basophils (Bld) [#/Vol] 0.1 10*3/uL 0.0-0.[address] [facility] Basophils/100 WBC Auto (Bld) Ordered By: Jesse Lombardo on 02-04-2023 Basophils/100 WBC (Bld) 0.7 % . [facility] Calcium [Mass/volume] in Ser um or PlasmaOrdered By: Jesse Lombardo on 02-04-2023 Calcium [Mass/Vol] 8.7 mg/dL 8.6-10.3 [facility] Carbon dioxide, total [Moles /volume] in Serum or PlasmaOrdered By: Jesse Lombardo on 02-04-2023 CO2 [Moles/Vol] 30.1 mmol/L 21.0-31.0 [facility] Chloride [Moles/volume] in S patric or PlasmaOrdered By: Jesse Lombardo on 02-04-2023 Chloride [Moles/Vol] 102 mmol/L 98-107 [facility] Cholesterol [Mass/volume] in Serum or PlasmaOrdered By: Jesse Lombardo on 02-04-2023 Cholesterol [Mass/Vol] 208 mg/dL 140-200 [facility] Comment on above: Chol less than 200 m g/dl low riskChol 201-239 mg/dl borderline riskChol 240 mg/dl and greater high risk Cholesterol in LDL Calc [Mas s/Vol]Ordered By: Jesse Lombardo on 02-04-2023 Cholesterol in LDL [Mass/Vol] 115 mg/dL 0-[address] [facility] Comment on above: LDL ATP III CLASSIFI CATIONLDL less than 100 mg/dL OptimalLDL 100-129 mg/dL Near or above optimalLDL 130-159 mg/dL Borderline highLDL 160-189 mg/dL HighLDL greater than 189 mg/dL Very high Cholesterol in VLDL Calc [Ma ss/Vol]Ordered By: Jesse Lombardo on 02-04-2023 Cholesterol in VLDL [Mass/Vol] 55 mg/dL [facility] Complete Blood Count Auto Di ffon 02-04-2023 Basophils (Bld) [#/Vol] 0.1 10*3/uL Normal 0.0-0.[address] [facility] Comment on above: Result Comment: PERF ORMED BY: [facility] [address] [place] [address] PATHOLOGIST TRACTOR DRIVER AMOR GREGORY M.D. Performed By: #### H S TROP #### [address] Basophils/100 WBC (Bld) 0.7 % Normal . [facility] Comment on above: Performed By: #### H S TROP #### [address] Eosinophils (Bld) [#/Vol] 0.4 10*3/uL Normal 0.0-0.[address] [facility] Comment on above: Performed By: #### H S TROP #### [address] Eosinophils/100 WBC (Bld) 4.3 % Normal . [facility] Comment on above: Performed By: #### H S TROP #### [address] Erythrocyte distribution width (RBC) [Ratio] 16.8 % High 11.9-15.[address] [facility] Comment on above: Performed By: #### H S TROP #### [address] Hematocrit (Bld) [Volume fraction] 41.6 % Normal 34.0-46.[address] [facility] Comment on above: Performed By: #### H S TROP #### [place] [address] [place] Hemoglobin (Bld) [Mass/Vol] 13.6 g/dL Normal 11.8-15.[address] [facility] Comment on above: Performed By: #### H S TROP #### [place] [address] [place] Lymphocytes (Bld) [#/Vol] 2.3 10*3/uL Normal 1.00-4.[address] [facility] Comment on above: Performed By: #### H S TROP #### [place] [address] [place] Lymphocytes/100 WBC (Bld) 23.8 % Normal . [facility] Comment on above: Performed By: #### H S TROP #### [address] MCH (RBC) [Entitic mass] 28.4 pg Normal 24.7-34.[address] [facility] Comment on above: Performed By: #### H S TROP #### [address] MCV (RBC) [Entitic vol] 86.6 fL Normal 80-[address] [facility] Comment on above: Performed By: #### H S TROP #### [address] Mean Corpuscular HGB Conc 32.8 g/dL Normal 32.0-35.[address] [facility] Comment on above: Performed By: #### H S TROP #### [address] Monocytes (Bld) [#/Vol] 0.7 10*3/uL Normal 0.0-0.[address] [facility] Comment on above: Performed By: #### H S TROP #### [place] [address] [place] Monocytes/100 WBC (Bld) 7.0 % Normal . [facility] Comment on above: Performed By: #### H S TROP #### [address] Neutrophils (Bld) [#/Vol] 6.3 10*3/uL Normal 1.8-7.[address] [facility] Comment on above: Performed By: #### H S TROP #### [place] [address] [place] Neutrophils/100 WBC (Bld) 64.2 % Normal . [facility] Comment on above: Performed By: #### H S TROP #### [address] NRBC% 0.1 /100{WBC} Normal 0-0.[address] [facility] Comment on above: Performed By: #### H S TROP #### [address] [place] [address] [place] Platelet mean volume (Bld) [Entitic vol] 10.3 fL Normal 6.3-10.[address] [facility] Comment on above: Performed By: #### H S TROP #### [facility] [address] [place] [id number] [place] Platelets (Bld) [#/Vol] 203 10*3/uL Normal 150-[address] [facility] Comment on above: Performed By: #### H S TROP #### [facility] [address] [place] [address] [place] RBC (Bld) [#/Vol] 4.80 10*6/uL Normal 3.60-5.00 [facility] Comment on above: Performed By: #### H S TROP #### [place] [id number] [place] WBC (Bld) [#/Vol] 9.8 10*3/uL Normal 3.8-11.6 [facility] Comment on above: Performed By: #### H S TROP #### [place] [id number] [facility] Creatinine [Mass/volume] in Serum or PlasmaOrdered By: Jesse Lombardo on 02-04-2023 Creatinine [Mass/Vol] 0.99 mg/dL 0.60-1.20 [facility] ECG 12 lead ECGon 02-04-2023 ECG 12 lead ECG [facility] Main [employer] [address] [place] [address] Electrocardiograph Report Signed Patient: Francisca Kumar MR#: [id number] : 1960 Acct:[id number] Age/Sex: 63 / F ADM Date: 02/03/23 Loc: Room: [address] [place] [address] Type: ADM IN Attending Dr: Jesse Lombardo [...] previous ECGs available Confirmed by TRISTA ERICKSON [facility] ([id number][facility] on 02/04/2023 11:59:39 AM Referred By: Electronically Signed By:VARSHA WESTON MD [facility] Transcribed By: MUS Signed By Jeremiah Weston MD 02/04/23 1159 Normal [facility] echo transthoracicon [facility] echo transthoracic [facility] Main Speculator [address] [place] [address] Echocardiogram Signed Patient: Francisca Kumar MR#: [id number] : 1960 Acct:[id number] Age/Sex: 63 / F ADM Date: 02/03/23 Loc: Room: [address] [place] [address] Type: ADM IN Attending Dr: Jesse Lombardo DO Ordering Provider: Jesse Lombardo DO Date of Service: 02/04/23 [facility] echo transthoracic: post STEMI Copies to: Chantale Charles MD, [facility] Jesse Lombardo DO Weight: 419 lb Performed By: BARNEY Schaeffer BSA: 2.8 m2 BP: 147/65 mmHg HR: 61 Reason For Study: post STEMI History: CHF, CAD, [place], Cardiac stent, Hypertension Interpretation Summary Mild concentric [...] P.0 mmHg E/E' lat: 8.9 MR max miguel a: 232.1 cm/sec E/E' med: 9.3 MR max P.9 mmHg Transcribed By: SCV Performed At: 02/04/23921 Signed By: Chantale Charles MD, [facility] 02/04/[address] [facility] Eosinophils Auto (Bld) [#/Vo l]Ordered By: Jesse Lombardo on 02-04-2023 Eosinophils (Bld) [#/Vol] 0.4 10*3/uL 0.0-0.[address] [facility] Eosinophils/100 WBC Auto (Bl d)Ordered By: Jesse Lombardo on 02-04-2023 Eosinophils/100 WBC (Bld) 4.3 % . [facility] Erythrocyte distribution wid th Auto (RBC) [Ratio]Ordered By: Jesse Lombardo on 02-04-2023 Erythrocyte distribution width (RBC) [Ratio] 16.8 % 11.9-15.[address] [facility] Glucose [Mass/volume] in Ser um or PlasmaOrdered By: Jesse Lombardo on 02-04-2023 Glucose [Mass/Vol] 144 mg/dL 70-100 [facility] Comment on above: ADA recommended refe rence rangeRandom Glucose Reference Range is dependent on time and content of last meal. Glucose of more than 200 mg/dL in a nonstressed, ambulatory subject supports the diagnosis of Diabetes Mellitus. Hematocrit Auto (Bld) [Volum e fraction]Ordered By: Jesse Lombardo on 02-04-2023 Hematocrit (Bld) [Volume fraction] 41.6 % 34.0-46.[address] [facility] Hemoglobin [Mass/volume] in BloodOrdered By: Jesse Lombardo on 02-04-2023 Hemoglobin (Bld) [Mass/Vol] 13.6 g/dL 11.8-15.[address] [facility] Leukocytes [#/volume] correc frida for nucleated erythrocytes in Blood by Automated counOrdered By: Jesse Lombardo on 02-04-2023 WBC corrected for nucl RBC Auto (Bld) [#/Vol] 9.8 10*3/uL 3.8-11.[address] [facility] Lipid Panelon 02-04-2023 Cholesterol [Mass/Vol] 208 mg/dL High 140-200 [facility] Comment on above: Order Comment: FASTI NG Y Result Comment: Chol less than 200 mg/dl low risk Chol 201-239 mg/dl borderline risk Chol 240 mg/dl and greater high risk Performed By: #### H S TROP #### [facility] [address] Cholesterol in HDL [Mass/Vol] 38 mg/dL Normal 23-[address] [facility] Comment on above: Order Comment: IRINEO NG Y Result Comment: HDL CHOL ATP-III CLASSIFICATION Cardiovascular Risk HDL > or equal to 60 mg/dL LOW HDL < 40 mg/dL HIGH Performed By: #### H S TROP #### [facility] [address] Cholesterol.total/Chol esterol in HDL [Mass ratio] 5.5 {ratio} Normal <5.[address] [facility] Comment on above: Order Comment: FASTI NG Y Result Comment: PERF ORMED BY: [facility] [address] [place] [address] PATHOLOGIST TRACTOR DRIVER AMOR GREGORY M.D. Performed By: #### H S TROP #### [facility] [address] [place] [id number] [place] LDL Cholesterol,Calculated 115 mg/dL High 0-[address] [facility] Comment on above: Order Comment: RADHAI NG Y Result Comment: LDL ATP III CLASSIFICATION LDL less than 100 mg/dL Optimal LDL 100-129 mg/dL Near or above optimal LDL 130-159 mg/dL Borderline high LDL 160-189 mg/dL High LDL greater than 189 mg/dL Very high Performed By: #### H S TROP #### [facility] [address] Triglyceride w/Reflex 277 mg/dL High 0-149 [facility] Comment on above: Order Comment: IRINEO Aly Result Comment: TRIG ATP III CLASSIFICATION TRIG less than 150 mg/dL Normal TRIG 150-199 mg/dL Borderline high TRIG 200-500 mg/dL High TRIG greater than 500 mg/dL Very high Standard traceable to the Center for Disease Conrtrol and Prevention (CDC) test method. Performed By: #### H S TROP #### [facility] [address] VLDL CHOLESTEROL 55 mg/dL Normal [facility] Comment on above: Order Comment: IRINEO STOVER Sheeba Performed By: #### H S TROP #### [facility] [address] Lymphocytes Auto (Bld) [#/Vo l]Ordered By: Jesse Lombardo on 02-04-2023 Lymphocytes (Bld) [#/Vol] 2.3 10*3/uL 1.00-4.[address] [facility] Lymphocytes/100 WBC Auto (Bl d)Ordered By: Jesse Lombardo on 02-04-2023 Lymphocytes/100 WBC (Bld) 23.8 % . [facility] MCH Auto (RBC) [Entitic mass ]Ordered By: Jesse Lombardo on 02-04-2023 MCH (RBC) [Entitic mass] 28.4 pg 24.7-34.[address] [facility] MCHC Auto (RBC) [Mass/Vol]Or dered By: Jesse Lombardo on 02-04-2023 MCHC (RBC) [Mass/Vol] 32.8 g/dL 32.0-35.0 [facility] MCV Auto (RBC) [Entitic vol] Ordered By: Jesse Lombardo on 02-04-2023 MCV (RBC) [Entitic vol] 86.6 fL 80-[address] [facility] Monocytes Auto (Bld) [#/Vol] Ordered By: Jesse Lombardo on 02-04-2023 Monocytes (Bld) [#/Vol] 0.7 10*3/uL 0.0-0.[address] [facility] Monocytes/100 WBC Auto (Bld) Ordered By: Jesse Lombardo on 02-04-2023 Monocytes/100 WBC (Bld) 7.0 % . [facility] Neutrophils Auto (Bld) [#/Vo l]Ordered By: Jesse Lombardo on 02-04-2023 Neutrophils (Bld) [#/Vol] 6.3 10*3/uL 1.8-7.[address] [facility] Neutrophils/100 WBC Auto (Bl d)Ordered By: Jesse Lombardo on 02-04-2023 Neutrophils/100 WBC (Bld) 64.2 % . [facility] No Panel InformationOrdered By: Jesse Lombardo on 02-04-2023 Estimated GFR (CKD-EPI) > 60.0 mL/Min [facility] Creatinine Clearance (Chem 106.[address] [facility] Nucleated erythrocytes [Pres ence] in Blood by Automated countOrdered By: Jesse Lombardo on 02-04-2023 Nucleated RBC Auto Ql (Bld) 0.1 /100{WBC} 0-0.[address] [facility] Platelet mean volume Auto (B ld) [Entitic vol]Ordered By: Jesse Lombardo on 02-04-2023 Platelet mean volume (Bld) [Entitic vol] 10.3 fL 6.3-10.[address] [facility] Platelets Auto (Bld) [#/Vol] Ordered By: Jesse Lombardo on 02-04-2023 Platelets (Bld) [#/Vol] 203 10*3/uL 150-[address] [facility] Potassium [Moles/volume] in Serum or PlasmaOrdered By: Jesse Lombardo on 02-04-2023 Potassium [Moles/Vol] 4.4 mmol/L 3.5-5.1 [facility] RBC Auto (Bld) [#/Vol]Ordere d By: Jesse Lombardo on 02-04-2023 RBC (Bld) [#/Vol] 4.80 10*6/uL 3.60-5.00 [facility] Serum or plasma anion gap de terminationOrdered By: Jesse Lombardo on 02-04-2023 Anion gap [Moles/Vol] 9.3 mmol/L 6.0-15.0 [facility] Serum or plasma high density lipoprotein (HDL) cholesterol measurementOrdered By: Jesse Lombardo on 02-04-2023 Cholesterol in HDL [Mass/Vol] 38 mg/dL [facility] Comment on above: HDL CHOL ATP-III CLA SSIFICATION Cardiovascular RiskHDL > or equal to 60 mg/dL LOWHDL < 40 mg/dL HIGH Serum or plasma total choles terol/high density lipoprotein (HDL) cholesterol mass ratOrdered By: Jesse Lombardo on 02-04-2023 Cholesterol.total/Chol esterol in HDL [Mass ratio] 5.5 {ratio} <5.[address] [facility] Sodium [Moles/volume] in Ser um or PlasmaOrdered By: Jesse Lombardo on 02-04-2023 Sodium [Moles/Vol] 137 mmol/L 136-145 [facility] Triglyceride [Mass/volume] i n Serum or PlasmaOrdered By: Jesse Lombardo on 02-04-2023 Triglyceride [Mass/Vol] 277 mg/dL 0-[address] [facility] Comment on above: TRIG ATP III CLASSIF ICATIONTRIG less than 150 mg/dL NormalTRIG 150-199 mg/dL Borderline highTRIG 200-500 mg/dL High TRIG greater than 500 mg/dL Very highStandard traceable to the Center for Disease Conrtrol and Prevention (CDC) test method. Urea nitrogen [Mass/volume] in Serum or PlasmaOrdered By: Jesse Lombardo on 02-04-2023 Urea nitrogen [Mass/Vol] 22 mg/dL 02-[address] [facility] WBC Auto (Bld) [#/Vol]Ordere d By: Jesse Lombardo on 02-04-2023 WBC (Bld) [#/Vol] 9.8 10*3/uL 3.8-11.6 [facility] Activated partial thrombopla stin time (aPTT) in platelet poor plasma by coagulation aOrdered By: Ru Johnson on 02-03-2023 aPTT Coag (PPP) [Time] 120.6 s 25.1-36.5 [facility] Comment on above: Results calledat 022 9 on 02/03/23 Alanine aminotransferase [En zymatic activity/volume] in Serum or PlasmaOrdered By: Ru Johnson on 02-03-2023 ALT [Catalytic activity/Vol] 23 U/L [facility] Albumin [Mass/volume] in Ser um or Plasma by Bromocresol green (BCG) dye binding methoOrdered By: Ru Johnson on 02-03-2023 Albumin BCG dye [Mass/Vol] 4.0 g/dL 3.5-5.[address] [facility] Alkaline phosphatase [Enzyma tic activity/volume] in Serum or PlasmaOrdered By: Ru Johnson on 02-03-2023 ALP [Catalytic activity/Vol] 119 U/L 34-[address] [facility] Aspartate aminotransferase [ Enzymatic activity/volume] in Serum or PlasmaOrdered By: Ru Johnson on 02-03-2023 AST [Catalytic activity/Vol] 18 U/L 13-[address] [facility] B-Type Natriuretic Peptideon 02-03-2023 Natriuretic peptide B (Bld) [Mass/Vol] 142.0 pg/mL High 5-[address] [facility] Comment on above: Result Comment: PERF ORMED BY: [facility] [address] [place] [address] PATHOLOGIST TRACTOR DRIVER AMOR GREGORY M.D. Performed By: #### C BC, PTT, BNP, CMP, CK, PT, HS TROP #### [facility] [address] [place], [place] [id number] [facility] Bilirubin.total [Mass/volume ] in Serum or PlasmaOrdered By: Ru Johnson on 02-03-2023 Bilirubin [Mass/Vol] 0.3 mg/dL 0.3-1.0 [facility] Complete Blood Count Auto Di ffon 02-03-2023 Basophils (Bld) [#/Vol] 0.1 10*3/uL Normal 0.0-0.[address] [facility] Comment on above: Result Comment: PERF ORMED BY: [facility] [address] [place] [address] PATHOLOGIST TRACTOR DRIVER AMOR GREGORY M.D. Performed By: #### C BC, PTT, BNP, CMP, CK, PT, HS TROP #### [facility] [address] [place] [id number] [place] Basophils/100 WBC (Bld) 1.0 % Normal . [facility] Comment on above: Performed By: #### C BC, PTT, BNP, CMP, CK, PT, HS TROP #### [address] Eosinophils (Bld) [#/Vol] 0.3 10*3/uL Normal 0.0-0.[address] [facility] Comment on above: Performed By: #### C BC, PTT, BNP, CMP, CK, PT, HS TROP #### [address] Eosinophils/100 WBC (Bld) 2.0 % Normal . [facility] Comment on above: Performed By: #### C BC, PTT, BNP, CMP, CK, PT, HS TROP #### [address] Erythrocyte distribution width (RBC) [Ratio] 16.6 % High 11.9-15.[address] [facility] Comment on above: Performed By: #### C BC, PTT, BNP, CMP, CK, PT, HS TROP #### [address] Hematocrit (Bld) [Volume fraction] 45.2 % Normal 34.0-46.[address] [facility] Comment on above: Performed By: #### C BC, PTT, BNP, CMP, CK, PT, HS TROP #### [address] Hemoglobin (Bld) [Mass/Vol] 15.1 g/dL Normal 11.8-15.[address] [facility] Comment on above: Performed By: #### C BC, PTT, BNP, CMP, CK, PT, HS TROP #### [address] Lymphocytes (Bld) [#/Vol] 2.0 10*3/uL Normal 1.00-4.[address] [facility] Comment on above: Performed By: #### C BC, PTT, BNP, CMP, CK, PT, HS TROP #### [address] Lymphocytes/100 WBC (Bld) 15.2 % Normal . [facility] Comment on above: Performed By: #### C BC, PTT, BNP, CMP, CK, PT, HS TROP #### [address] MCH (RBC) [Entitic mass] 28.5 pg Normal 24.7-34.[address] [facility] Comment on above: Performed By: #### C BC, PTT, BNP, CMP, CK, PT, HS TROP #### [address] MCV (RBC) [Entitic vol] 85.2 fL Normal 80-[address] [facility] Comment on above: Performed By: #### C BC, PTT, BNP, CMP, CK, PT, HS TROP #### [address] Mean Corpuscular HGB Conc 33.4 g/dL Normal 32.0-35.[address] [facility] Comment on above: Performed By: #### C BC, PTT, BNP, CMP, CK, PT, HS TROP #### [address] Monocytes (Bld) [#/Vol] 0.6 10*3/uL Normal 0.0-0.[address] [facility] Comment on above: Performed By: #### C BC, PTT, BNP, CMP, CK, PT, HS TROP #### [address] Monocytes/100 WBC (Bld) 4.3 % Normal . [facility] Comment on above: Performed By: #### C BC, PTT, BNP, CMP, CK, PT, HS TROP #### [address] Neutrophils (Bld) [#/Vol] 10.1 10*3/uL High 1.8-7.[address] [facility] Comment on above: Performed By: #### C BC, PTT, BNP, CMP, CK, PT, HS TROP #### [address] Neutrophils/100 WBC (Bld) 77.5 % Normal . [facility] Comment on above: Performed By: #### C BC, PTT, BNP, CMP, CK, PT, HS TROP #### [address] NRBC% 0.1 /100{WBC} Normal 0-0.[address] [facility] Comment on above: Performed By: #### C BC, PTT, BNP, CMP, CK, PT, HS TROP #### [address] Platelet mean volume (Bld) [Entitic vol] 9.9 fL Normal 6.3-10.[address] [facility] Comment on above: Performed By: #### C BC, PTT, BNP, CMP, CK, PT, HS TROP #### [address] Platelets (Bld) [#/Vol] 207 10*3/uL Normal 150-[address] [facility] Comment on above: Performed By: #### C BC, PTT, BNP, CMP, CK, PT, HS TROP #### [address] RBC (Bld) [#/Vol] 5.30 10*6/uL High 3.60-5.00 [facility] Comment on above: Performed By: #### C BC, PTT, BNP, CMP, CK, PT, HS TROP #### [address] WBC (Bld) [#/Vol] 13.1 10*3/uL High 3.8-11.6 [facility] Comment on above: Performed By: #### C BC, PTT, BNP, CMP, CK, PT, HS TROP #### [address] Comprehensive Metabolic Pane abdiaziz 02-03-2023 Albumin [Mass/Vol] 4.0 g/dL Normal 3.5-5.7 [facility] Comment on above: Performed By: #### C BC, PTT, BNP, CMP, CK, PT, HS TROP #### [address] [address] [place] Albumin/Globulin [Mass ratio] 1.3 {ratio} Normal [facility] Comment on above: Performed By: #### C BC, PTT, BNP, CMP, CK, PT, HS TROP #### [facility] [address] ALP [Catalytic activity/Vol] 119 U/L High 34-[address] [facility] Comment on above: Performed By: #### C BC, PTT, BNP, CMP, CK, PT, HS TROP #### [facility] [address] ALT [Catalytic activity/Vol] 23 U/L Normal 7-[address] [facility] Comment on above: Performed By: #### C BC, PTT, BNP, CMP, CK, PT, HS TROP #### [address] Anion gap [Moles/Vol] Not performed Normal 6.0-15.[address] [facility] Comment on above: Performed By: #### C BC, PTT, BNP, CMP, CK, PT, HS TROP #### [address] AST [Catalytic activity/Vol] 18 U/L Normal 13-[address] [facility] Comment on above: Performed By: #### C BC, PTT, BNP, CMP, CK, PT, HS TROP #### [address] Bilirubin [Mass/Vol] 0.3 mg/dL Normal 0.3-1.0 [facility] Comment on above: Performed By: #### C BC, PTT, BNP, CMP, CK, PT, HS TROP #### [address] Calcium [Mass/Vol] 9.0 mg/dL Normal 8.6-10.3 [facility] Comment on above: Performed By: #### C BC, PTT, BNP, CMP, CK, PT, HS TROP #### [address] Chloride [Moles/Vol] 104 mmol/L Normal 98-107 [facility] Comment on above: Performed By: #### C BC, PTT, BNP, CMP, CK, PT, HS TROP #### [address] CO2 [Moles/Vol] 24.2 mmol/L Normal 21.0-31.0 [facility] Comment on above: Performed By: #### C BC, PTT, BNP, CMP, CK, PT, HS TROP #### [facility] [address] Creatinine [Mass/Vol] 1.11 mg/dL Normal 0.60-1.20 [facility] Comment on above: Performed By: #### C BC, PTT, BNP, CMP, CK, PT, HS TROP #### [address] Creatinine Clr Calc [facility]acy 94.17 [facility] Comment on above: Result Comment: PERF ORMED BY: [place] [address] PATHOLOGIST TRACTOR DRIVER AMOR GREGORY M.D. Performed By: #### C BC, PTT, BNP, CMP, CK, PT, HS TROP #### [address] GFR/1.73 sq M.predicted MDRD (S/P/Bld) [Vol rate/Area] 56.551 mL/min/{1.73_m2} [facility] Comment on above: Performed By: #### C BC, PTT, BNP, CMP, CK, PT, HS TROP #### [facility] [address] Globulin (S) [Mass/Vol] 3.2 g/dL [facility] Comment on above: Performed By: #### C BC, PTT, BNP, CMP, CK, PT, HS TROP #### [facility] [address] Glucose [Mass/Vol] 164 mg/dL High 70-100 [facility] Comment on above: Result Comment: [facility] Glucose Reference Range is dependent on time and content of last meal. Glucose of more than 200 mg/dL in a nonstressed, ambulatory subject supports the diagnosis of Diabetes Mellitus. ADA recommended reference range Performed By: #### C BC, PTT, BNP, CMP, CK, PT, HS TROP #### [facility] [address] Potassium Normal 3.5-5.[address] [facility] Comment on above: Result Comment: Spec imen hemolyzed, redraw requested Results called at 0213 on 02/03/23 Performed By: #### C BC, PTT, BNP, CMP, CK, PT, HS TROP #### [address] Protein [Mass/Vol] 7.2 g/dL Normal 6.4-8.9 [facility] Comment on above: Performed By: #### C BC, PTT, BNP, CMP, CK, PT, HS TROP #### [address] Sodium [Moles/Vol] 138 mmol/L Normal 136-145 [facility] Comment on above: Performed By: #### C BC, PTT, BNP, CMP, CK, PT, HS TROP #### [address] Urea nitrogen [Mass/Vol] 27 mg/dL High 7-[address] [facility] Comment on above: Performed By: #### C BC, PTT, BNP, CMP, CK, PT, HS TROP #### [place] [address] [place] Creatine Kinaseon 02-03-2023 CK [Catalytic activity/Vol] 51 U/L Normal [facility] Comment on above: Performed By: #### C BC, PTT, BNP, CMP, CK, PT, HS TROP #### [place] [address] [place] Creatine kinase [Enzymatic a ctivity/volume] in Serum or PlasmaOrdered By: Ru Johnson on 02-03-2023 CK [Catalytic activity/Vol] 51 U/L [facility] ECG 12 lead ECGon 02-03-2023 ECG 12 lead ECG [facility] Main [employer] [address] [place] [address] Electrocardiograph Report Signed Patient: Francisca Kumar MR#: [id number] : 1960 Acct:[id number] Age/Sex: 63 / F ADM Date: 02/03/23 Loc: Room: Type: [facility] Attending Dr: Jesse Lombardo DO [...] consider inferolateral injury or acute infarct ACUTE [place] / STEMI Consider right ventricular involvement in acute inferior infarct Abnormal ECG No previous ECGs available Confirmed by RU JOHNSON MD ([id number]) on 02/03/2023 2:55:57 AM Referred By: Electronically Signed By:RU JOHNSON MD Transcribed By: MUS Signed By Ru Johnson Jr, MD [address] [facility] Globulin Calc (S) [Mass/Vol] Ordered By: Ru Johnson on 02-03-2023 Globulin (S) [Mass/Vol] 3.2 g/dL [facility] Laboratory - CoagulationOrde red By: Ru Johnson on 02-03-2023 PT Coag (PPP) [Time] 10.3 s 9.0-12.9 [facility] Natriuretic peptide B [Mass/ Vol]Ordered By: Ru Johnson on 02-03-2023 Natriuretic peptide B (Bld) [Mass/Vol] 142.0 pg/mL 5-[address] [facility] Partial Thromboplastin Timeo n 02-03-2023 aPTT Coag (Bld) [Time] 120.6 s Off scale high 25.1-36.[address] [facility] Comment on above: Result Comment: Resu lts called at 0229 on 02/03/23 PERFORMED BY: [place] [address] PATHOLOGIST TRACTOR DRIVER AMOR GREGORY M.D. Performed By: #### H S TROP #### [facility] [address] [place] [address] Platelet poor plasma interna tional normalized ratio (INR) by coagulation assay (relatOrdered By: Ru Johnson on 02-03-2023 INR Coag (PPP) [Relative time] 0.9 {INR} [facility] Comment on above: INR Therapeutic Rang [...] on 02-03-2023 Protein [Mass/Vol] 7.2 g/dL 6.4-8.9 [facility] Prothrombin Time INRon 02-03 INR Coag (PPP) [Relative time] 0.9 {INR} Normal [facility] Comment on above: Result Comment: INR [...] BNP, CMP, CK, PT, HS TROP #### [facility] [address] [place] [address] PT Coag (PPP) [Time] 10.3 s Normal 9.0-12.9 [facility] Comment on above: Performed By: #### C BC, PTT, BNP, CMP, CK, PT, HS TROP #### [facility] [address] [place] [address] Redraw Potassiumon 3 Potassium [Moles/Vol] 3.9 mmol/L Normal 3.5-5.1 [facility] Comment on above: Order Comment: this redraw -[facility] 0834 Result Comment: PERF ORMED BY: [place] [address] PATHOLOGIST TRACTOR DRIVER AMOR GREGORY M.D. Performed By: #### R EDRAW K #### [address] Redraw Potassium Normal 3.5-5.1 [facility] Comment on above: Result Comment: Spec imen hemolyzed, redraw requested PERFORMED BY: [place] [address] PATHOLOGIST TRACTOR DRIVER AMOR GREGORY M.D. Performed By: #### H S TROP #### [address] Serum or plasma albumin/glob ulin mass ratioOrdered By: Ru Johnson on 02-03-2023 Albumin/Globulin [Mass ratio] 1.3 {ratio} [facility] Troponin I High Sensitivityo n 02-03-2023 Troponin I High Sensitivity 69015.0 pg/mL Off scale high 0.0-15.[address] [facility] Comment on above: Result Comment: Crit ical Result I_TnIHS_d:96146.0 Called to and read back by: NASIR RUCKER at: 02/03/2023 19:39:12 by:[id number] PERFORMED BY: [place] [address] PATHOLOGIST TRACTOR DRIVER AMOR GREGORY M.D. Performed By: #### H S TROP #### [facility] [address] [place], [place] [id number] [facility] Troponin I High Sensitivity 86492.0 pg/mL Off scale high 0.0-15.[address] [facility] Comment on above: Result Comment: Crit ical Result I_TnIHS_d:28379.0 Called to and read back by: SHASHI CASSIDY at: 02/03/2023 16:52:21 by:[id number] PERFORMED BY: [place] [id number] PATHOLOGIST TRACTOR DRIVER AMOR GREGORY M.D. Performed By: #### H S TROP #### [place] [address] [place] Troponin I High Sensitivity 75169.5 pg/mL Off scale high 0.0-15.[address] [facility] Comment on above: Result Comment: Crit ical Result I_TnIHS_d:68256.5 Called to and read back by: CHARY SAWYER at: 02/03/2023 13:42:23 by:[id number] PERFORMED BY: [place] [address] PATHOLOGIST TRACTOR DRIVER AMOR GREGORY M.D. Performed By: #### H S TROP #### [place] [address] [place] Troponin I High Sensitivity 94534.3 pg/mL Off scale high 0.0-15.[address] [facility] Comment on above: Result Comment: Crit ical Result I_TnIHS_d:41175.3 Called to and read back by: CHARY SAWYER at: 02/03/2023 11:01:44 by:[id number] PERFORMED BY: [place] [id number] PATHOLOGIST TRACTOR DRIVER AMOR GREGORY M.D. Performed By: #### H S TROP #### [place] [address] [place] Troponin I High Sensitivity 71.2 pg/mL Off scale high 0.0-15.[address] [facility] Comment on above: Result Comment: Crit ical Result : Called to and read back by: ODILON WILLIS at: 02/03/2023 02:27:28 by:[id number] PERFORMED BY: [address] [place] [address] PATHOLOGIST TRACTOR DRIVER AMOR GREGORY M.D. Performed By: #### C BC, PTT, BNP, CMP, CK, PT, HS TROP #### [facility] [address] Troponin I.cardiac [Mass/vol ume] in Serum or Plasma by Detection limit <= 0.01 ng/Ordered By: Jesse Lombardo on 02-03-2023 Troponin I.cardiac DL <= 0.01 ng/mL [Mass/Vol] 67176.0 pg/mL 0.0-15.[address] [facility] Comment on above: Critical Result I_Tn IHS_d:79782.0 Called to and read back by: NASIR RUCKER at: 02/03/2023 19:39:12 by:[id number] BNPon 09-29-2021 Natriuretic peptide B (Bld) [Mass/Vol] 247.0 pg/mL Normal <=900.0 [facility] Comment on above: Performed By: #### B MRP CONTROLLER, CMP, HSTROPN #### [facility] [address] [place] [address] Dr. Lawrence Baltazar CBC AUTO DIFFon 09-29-2021 BASO # 0.1 103/ul Normal 0.0-0.1 [facility] Comment on above: Performed By: #### C BC #### [facility] [address] [place] [address] Dr. Lawrence Baltazar Basophils/100 WBC (Bld) 1.1 % Normal 0.2-2.0 [facility] Comment on above: Performed By: #### C BC #### [facility] [address] [place] [address] Dr. Lawrence Baltazar EO # 0.2 103/ul Normal 0.0-0.7 [facility] Comment on above: Performed By: #### C BC #### [facility] [address] [place] [address] Dr. Lawrence Baltazar Eosinophils/100 WBC (Bld) 2.6 % Normal 0.9-7.0 [facility] Comment on above: Performed By: #### C BC #### [facility] [address] [place] [address] Dr. Lawrence Baltazar Erythrocyte distribution width (RBC) [Ratio] 18.2 % Critically high 11.0-15.0 [facility] Comment on above: Performed By: #### C BC #### [facility] [address] [place] [address] Dr. Lawrence Baltazar Hematocrit (Bld) [Volume fraction] 50.5 % Critically high 36.0-48.0 [facility] Comment on above: Performed By: #### C BC #### [facility] [address] [place] [address] Dr. Lawrence Baltazar Hemoglobin (Bld) [Mass/Vol] 15.7 g/dL Normal 12.0-16.0 [facility] Comment on above: Performed By: #### C BC #### [facility] [address] [place] [address] Dr. Lawrence Baltazar IG # 0.05 10e3/ul Critically high 0.00-0.03 [facility] Comment on above: Performed By: #### C BC #### [facility] [address] [place] [address] Dr. Lawrence Baltazar IG % 0.5 % Normal 0.0-0.5 [facility] Comment on above: Performed By: #### C BC #### [facility] [address] [place] [address] Dr. Lawrence Baltazar LYMPH # 1.8 103/ul Normal 1.2-3.8 [facility] Comment on above: Performed By: #### C BC #### [facility] [address] [place] [address] Dr. Lawrence Baltazar Lymphocytes/100 WBC (Bld) 19.8 % Critically low 20.5-60.0 [facility] Comment on above: Performed By: #### C BC #### [facility] [address] [place] [address] Dr. Lawrence Baltazar MANUAL DIFF REQ NO Normal [facility] Comment on above: Performed By: #### C BC #### [facility] [address] [place] [address] [address] Lawrence Baltazar MCH (RBC) [Entitic mass] 27.0 pg Normal 26.7-34.0 [facility] Comment on above: Performed By: #### C BC #### [facility] [address] [place] [address] Dr. Lawrence Baltazar MCHC (RBC) [Mass/Vol] 31.1 g/dL Normal 29.9-35.2 [facility] Comment on above: Performed By: #### C BC #### [facility] [address] [place] [address] Dr. Lawrence Baltazar MCV (RBC) [Entitic vol] 86.8 fL Normal 81.0-99.0 [facility] Comment on above: Performed By: #### C BC #### [facility] [address] [place] [address] Dr. Lawrence Baltazar MONO # 0.6 103/ul Normal 0.3-0.8 [facility] Comment on above: Performed By: #### C BC #### [facility] [address] [place] [address] Dr. Lawrence Baltazar Monocytes/100 WBC (Bld) 7.0 % Normal 1.7-12.0 [facility] Comment on above: Performed By: #### C BC #### [facility] [address] [place] [address] Dr. Lawrence Baltazar NEUT # 6.3 103/ul Normal 1.4-6.5 [facility] Comment on above: Performed By: #### C BC #### [facility] [address] [place] [address] Dr. Lawrence Baltazar Neutrophils/100 WBC (Bld) 69.0 % Normal 43.0-75.0 [facility] Comment on above: Performed By: #### C BC #### [facility] [address] [place] [address] Dr. Lawrence Baltazar Platelet mean volume (Bld) [Entitic vol] 11.4 fL Normal 9.5-13.5 [facility] Comment on above: Performed By: #### C BC #### [facility] [address] [place] [address] [address] Lawrence Baltazar PLT 225 103/ul Normal 150-450 [facility] Comment on above: Performed By: #### C BC #### [facility] [address] [place] [address] Dr. Lawrence Baltazar RBC 5.82 106/ul Critically high 4.20-5.40 [facility] Comment on above: Performed By: #### C BC #### [facility] [address] [place] [address] Dr. Lawrence Baltazar WBC 9.2 103/ul Normal 4.0-11.0 [facility] Comment on above: Performed By: #### C BC #### [facility] [address] [place] [address] Dr. Lawrence Baltazar PROF 14(COMP METB)on 022 Albumin [Mass/Vol] 3.5 g/dL Normal 3.4-5.0 [facility] Comment on above: Performed By: #### B MRP CONTROLLER, CMP, HSTROPN #### [facility] [address] [place] [address] Dr. Lawrence Baltazar Albumin/Globulin [Mass ratio] 0.9 {ratio} Normal [facility] Comment on above: Performed By: #### B MRP CONTROLLER, CMP, HSTROPN #### [facility] [address] [place] [address] Dr. Lawrence Baltazar ALP [Catalytic activity/Vol] 139 U/L Critically high 46-116 [facility] Comment on above: Performed By: #### B MRP CONTROLLER, CMP, HSTROPN #### [facility] [address] [place] [address] Dr. Lawrence Baltazar ALT [Catalytic activity/Vol] 26 U/L Normal 14-59 [facility] Comment on above: Performed By: #### B MRP CONTROLLER, CMP, HSTROPN #### [facility] [address] [place] [address] Dr. Lawrence Baltazar Anion gap [Moles/Vol] 9.2 mmol/L Normal [facility] Comment on above: Performed By: #### B MRP CONTROLLER, CMP, HSTROPN #### [facility] [address] [place] [address] Dr. Lawrence Baltazar AST [Catalytic activity/Vol] 12 U/L Critically low 15-37 [facility] Comment on above: Performed By: #### B MRP CONTROLLER, CMP, HSTROPN #### [facility] [address] [place] [address] Dr. Lawrence Baltazar Bilirubin [Mass/Vol] 0.4 mg/dL Normal 0.2-1.3 [facility] Comment on above: Performed By: #### B MRP CONTROLLER, CMP, HSTROPN #### [facility] [address] [place] [address] Dr. Lawrence Baltazar Calcium [Mass/Vol] 8.8 mg/dL Normal 8.5-10.1 [facility] Comment on above: Performed By: #### B MRP CONTROLLER, CMP, HSTROPN #### [facility] [address] [place] [address] Dr. Lawrence Baltazar Chloride [Moles/Vol] 102 mmol/L Normal 98-107 [facility] Comment on above: Performed By: #### B MRP CONTROLLER, CMP, HSTROPN #### [facility] [address] [place] [address] Dr. Lawrence Baltazar CO2 [Moles/Vol] 31.6 mmol/L Critically high 22.0-30.0 [facility] Comment on above: Performed By: #### B MRP CONTROLLER, CMP, HSTROPN #### [facility] [address] [place] [address] Dr. Lawrence Baltazar Creatinine [Mass/Vol] 0.93 mg/dL Normal 0.52-1.04 [facility] Comment on above: Performed By: #### B MRP CONTROLLER, CMP, HSTROPN #### [facility] [address] [place] [address] Dr. Lawrence Baltazar EGFR-AF DJIBOUTIAN >60 Normal >=60 [facility] Comment on above: Performed By: #### B MRP CONTROLLER, CMP, HSTROPN #### [facility] [address] [place] [address] Dr. Lawrence Baltazar EGFR-NON AF DJIBOUTIAN >60 Normal >=60 [facility] Comment on above: Performed By: #### B MRP CONTROLLER, CMP, HSTROPN #### [facility] [address] [address] [address] Lawrence Baltazar Globulin (S) [Mass/Vol] 4.0 g/dL Normal [facility] Comment on above: Performed By: #### B MRP CONTROLLER, CMP, HSTROPN #### [facility] [address] [address] [address] Lawrence Baltazar Glucose [Mass/Vol] 154 mg/dL Critically high 74-106 [facility] Comment on above: Performed By: #### B MRP CONTROLLER, CMP, HSTROPN #### [facility] [address] [address] [address] Lawrence Baltazar Potassium [Moles/Vol] 3.8 mmol/L Normal 3.4-5.0 [facility] Comment on above: Performed By: #### B MRP CONTROLLER, CMP, HSTROPN #### [facility] [address] [address] [address] Lawrence Baltazar Protein [Mass/Vol] 7.5 g/dL Normal 6.1-8.2 [facility] Comment on above: Performed By: #### B MRP CONTROLLER, CMP, HSTROPN #### [facility] [address] [address] [address] Lawrence Baltazar Sodium [Moles/Vol] 139 mmol/L Normal 137-145 [facility] Comment on above: Performed By: #### B MRP CONTROLLER, CMP, HSTROPN #### [facility] [address] [address] [address] Lawrence Baltazar Urea nitrogen [Mass/Vol] 19.0 mg/dL Critically high 7.0-18.0 [facility] Comment on above: Performed By: #### B MRP CONTROLLER, CMP, HSTROPN #### [facility] [address] [address] [address] Lawrence Baltazar Urea nitrogen/Creatinine [Mass ratio] 20.4 mg/mg Normal [facility] Comment on above: Performed By: #### B MRP CONTROLLER, CMP, HSTROPN #### [facility] [address] [place], [place] [address] Dr. Lawrence Baltazar TROPONIN, HIGH SENSITIVITYon 09-29-2021 HSTROP 11.4 pg/mL Normal 4.0-35.5 [facility] Comment on above: Result Comment: CUT- OFF POINTS HAVE BEEN ESTABLISHED BASED ON THE FOURTH UNIVERSAL DEFINITIONS OF MYOCARDIAL INFARCTION. THE UPPER REFERENCE LIMIT (URL) OF TROPONIN, DEFINED THE 99TH PERCENTILE OF cTnI DISTRIBUTION IN A REFERENCE POPULATION, HAS BEEN CONFIRMED THE DECISION THRESHOLD FOR [place] DIAGNOSIS. Performed By: #### B MRP CONTROLLER, CMP, HSTROPN #### [facility] [id number] Lawrence Baltazar XR CHEST 1 Von [...] MAYCOL SAID Date: 2021-09-29 05:32 Normal [facility] Covid-19 PCR (CVDTB)on 06-12 SARS-CoV-2 (COVID-19) RNA MAUREEN+probe Ql (Unsp spec) Not detected Normal NOT DETECTED [facility] Comment on above: Result Comment: This test is not yet approved or cleared by the [place] FDA. When there are no FDA-approved or cleared tests available, and other criteria are met, FDA can make tests available under an emergency access mechanism called an Emergency Use Authorization (EUA). The EUA for this test is supported by the [place] of Health and Human Service's (HHS's) declaration [...] SARS-CoV-2. Performed By: #### C VDTB #### [facility] [address] [place] [address] Dr. Lawrence Baltazar Operative Reporton 1 Operative Report MR#: [id number] [facility] Pt. Name: Francisca Kumar Room #: 0C [...] Quigley MD Date Trans: 03/25/2021 11:30 Toribio/wale [id number] cc: Michelle Black D.O. [facility] WAbbie Richards [facility] [address] [facility] [address] Normal The [facility] POC GLUCOSE LABon 03-25-2021 Glucose [Mass/Vol] 133 mg/dL High 70-100 The [facility] Comment on above: Performed By: #### 8 [id number] #### [facility] [address] [place] [address], [facility] *MRSA/MSSA DNA NASALon 03-12 *MRSA/MSSA DNA NASAL Clinical Report: (D ) Specimen: NASAL SWAB Collected: 03/12/2021 10:20 Status: Final Last Updated: 03/12/2021 17:42 MSSA DNA (Final) Negative MRSA DNA (Final) Methicillin Resistant Staphylococcus aureus DNA Detected Normal The [facility] Comment on above: Performed By: #### 3 1595 #### [facility] [address] [place] [address], [facility] APTTon 03-12-2021 aPTT Coag (Bld) [Time] 31.8 s Normal 25.0-35.0 Th e [facility] Comment on above: Result Comment: ALL RESULTS [...] THIS PURPOSE. Performed By: #### 5 [id number], [id number] #### [facility] [address] [facility] [place] [address], [facility] BASIC METABOLIC PANELon Calcium [Mass/Vol] 9.2 mg/dL Normal 8.6-10.3 The [facility] Comment on above: Performed By: #### 0 0071 #### [facility] [address] [place] [address], [facility] Chloride [Moles/Vol] 104 mmol/L Normal 98-107 The [facility] Comment on above: Performed By: #### 0 0071 #### [facility] [address] [place] [address], [facility] CO2 [Moles/Vol] 27 mmol/L Normal 21-31 The [facility] Comment on above: Performed By: #### 0 0071 #### [facility] [address] [place] [address], [place] Creatinine [Mass/Vol] 0.91 mg/dL Normal 0.60-1.20 The [facility] Comment on above: Performed By: #### 0 0071 #### [facility] [address] [place] [address], [place] GFR/1.73 sq M.predicted among blacks MDRD (S/P/Bld) [Vol rate/Area] mL/min/{1.73_m2} Normal >60 The [facility] Comment on above: Performed By: #### 0 0071 #### [facility] [address] [place] [address], [place] GFR/1.73 sq M.predicted among non-blacks MDRD (S/P/Bld) [Vol rate/Area] mL/min/{1.73_m2} Normal >60 The [facility] Comment on above: Performed By: #### 0 0071 #### [facility] [address] [place] [address], [place] Glucose [Mass/Vol] 131 mg/dL High 70-100 The [facility] Comment on above: Performed By: #### 0 0071 #### [facility] [address] [place] [address], [place] Potassium [Moles/Vol] 4.0 mmol/L Normal 3.5-5.1 The [facility] Comment on above: Performed By: #### 0 0071 #### [facility] [address] [place] [address], [place] Sodium [Moles/Vol] 139 mmol/L Normal 136-145 The [facility] Comment on above: Performed By: #### 0 0071 #### [facility] [address] [place] [address], [place] Urea nitrogen [Mass/Vol] 16 mg/dL Normal 7-25 The [facility] Comment on above: Performed By: #### 0 0071 #### [facility] [address] [place] [address], [facility] CBC W/DIFFon 03-12-2021 ABS IMM GRANS 0.1 10*3/uL Normal 0.0-0.2 The [facility] Comment on above: Performed By: #### 5 0103 #### [facility] [address] [place] [address], [facility] ABS NEUTROPHILS 7.9 10*3/uL High 1.6-7.6 The [facility] Comment on above: Performed By: #### 5 3 #### [facility] [address] [place] [address], [facility] Basophils (Bld) [#/Vol] 0.1 10*3/uL Normal 0.0-0.2 The [facility] Comment on above: Performed By: #### 5 102 #### [facility] [address] [place] [address], [facility] Basophils/100 WBC (Bld) 0.5 % Normal 0.0-1.0 The [facility] Comment on above: Performed By: #### 5 102 #### [facility] [address] [place] [address], [facility] Eosinophils (Bld) [#/Vol] 0.3 10*3/uL Normal 0.0-0.5 The [facility] Comment on above: Performed By: #### 5 010 #### [facility] [address] [place] [address], [facility] Eosinophils/100 WBC (Bld) 2.3 % Normal 0.0-6.0 The [facility] Comment on above: Performed By: #### 5 102 #### [facility] [address] Erythrocyte distribution width (RBC) [Ratio] 17.2 % High 11.5-15.0 The [facility] Comment on above: Performed By: #### 5 0103 #### [facility] [address] [facility] [address] Hematocrit (Bld) [Volume fraction] 49.1 % High 36.0-45.0 The [facility] Comment on above: Performed By: #### 3 #### [facility] [address] [facility]. [address] Hemoglobin (Bld) [Mass/Vol] 15.3 g/dL High 12.0-15.0 The [facility] Comment on above: Performed By: #### 3 #### [facility] [address] IMMATURE GRANS 0.5 % Normal 0.0-1.0 The [facility] Comment on above: Performed By: #### 102 #### [facility] [address] Lymphocytes (Bld) [#/Vol] 2.2 10*3/uL Normal 1.2-4.0 The [facility] Comment on above: Performed By: #### 3 #### [facility] [address] Lymphocytes/100 WBC (Bld) 19.4 % Low 20.0-45.0 The [facility] Comment on above: Performed By: #### 5 3 #### [facility] [address] [facility]. [address] MCH (RBC) [Entitic mass] 26.8 pg Low 27.0-33.0 The [facility] Comment on above: Performed By: #### 3 #### [facility] [address] MCHC (RBC) [Mass/Vol] 31.2 g/dL Low 32.0-35.0 The [facility] Comment on above: Performed By: #### 3 #### [facility] [address] [facility] [place] [address], [facility] MCV (RBC) [Entitic vol] 86.0 fL Normal 82.0-98.0 The [facility] Comment on above: Performed By: #### 0103 #### [facility] [address] [facility] [place] [address], [facility] Monocytes (Bld) [#/Vol] 0.7 10*3/uL Normal 0.1-1.0 The [facility] Comment on above: Performed By: #### 3 #### [facility] [address] [place] [address], [facility] MONOS 5.9 % Normal 5.0-12.0 The [facility] Comment on above: Performed By: #### 102 #### [facility] [address] [facility] [place] [address], [facility] Neutrophils/100 WBC (Bld) 71.4 % Normal 40.0-72.0 The [facility] Comment on above: Performed By: #### 102 #### [facility] [address] [place] [address], [facility] Nucleated RBC/100 WBC (Bld) [Ratio] 0 % Normal 0-0 The [facility] Comment on above: Performed By: #### 3 #### [facility] [address] [facility] [place] [address], [facility] PLAT CNT 239 10*3/uL Normal 150-400 The [facility] Comment on above: Performed By: #### 3 #### [facility] [address] [facility] [place] [address], [facility] RBC (Bld) [#/Vol] 5.71 10*6/uL High 3.80-5.00 The [facility] Comment on above: Performed By: #### 3 #### [facility] [address] WBC (Bld) [#/Vol] 11.10 10*3/uL High 4.00-10.60 The [facility] Comment on above: Performed By: #### 5 0103 #### [facility] [address] PROTHROMBIN TIMEon 1 INR Coag (PPP) [Relative time] 1.00 {INR} Normal 0.91-1.16 The [facility] Comment on above: Result Comment: ACCC P [...] CHEST 1995;[id number]. Performed By: #### 5 7307, [id number] #### [facility] [address] PT Coag (PPP) [Time] 13.2 s Normal 12.3-14.8 The [facility] Comment on above: Result Comment: ALL RESULTS MUST BE INTERPRETED WITH RESPECT TO BLOOD DRAWING ARTIFACT OR DILUTION ERROR OF ANTICOAGULANT AT THE TIME OF SAMPLING. Performed By: #### 5 7307, [id number] #### [facility] [address] Vital Signs Date Time Vital Sign Value Performing Clinician Facility 10-04-2023 15:14-0400 Body height 170.2 cm Milton Blake APRN-STANDARDS ENGINEER Work Phone: [facility] 10-04-2023 15:14-0400 Body mass index (BMI) [Ratio] 63.02 kg/m2 Milton Blake FITTING ROOM ATTENDANT-STANDARDS ENGINEER Work Phone: [facility] 10-04-2023 15:14-0400 Body temperature 98.01 [degF] Milton Blake APRN-STANDARDS ENGINEER Work Phone: [facility] 10-04-2023 15:14-0400 Body weight 182.53 kg Milton Blake APRN-STANDARDS ENGINEER Work Phone: [facility] 10-04-2023 15:14-0400 Diastolic blood pressure 80 mm[Hg] Milton Blake FITTING ROOM ATTENDANT-STANDARDS ENGINEER Work Phone: [facility] 10-04-2023 15:14-0400 Heart rate 80 /min Milton Blake APRN-STANDARDS ENGINEER Work Phone: [facility] 10-04-2023 15:14-0400 Respiratory rate 20 /min Milton Blake APRN-STANDARDS ENGINEER Work Phone: [facility] 10-04-2023 15:14-0400 SaO2% (BldA) [Mass fraction] 93 % Milton Blake APRN-STANDARDS ENGINEER Work Phone: [facility] 10-04-2023 15:14-0400 Systolic blood pressure 132 mm[Hg] Milton Blake FITTING ROOM ATTENDANT-STANDARDS ENGINEER Work Phone: [facility] 08-10-2023 15:38-0500 Body height 170.2 cm Milton Blake APRN-STANDARDS ENGINEER Work Phone: [facility] 08-10-2023 15:38-0500 Body mass index (BMI) [Ratio] 59.89 kg/m2 Milton Blake FITTING ROOM ATTENDANT-STANDARDS ENGINEER Work Phone: [facility] [employer] [facility] 08-10-2023 15:38-0500 Body temperature 97.9 [degF] Milton Blake APRN-STANDARDS ENGINEER Work Phone: [facility] [employer] 08-10-2023 15:38-0500 Body weight 173.46 kg Milton Blake APRN-PAZ Work Phone: [facility] [employer] [facility] 08-10-2023 15:38-0500 Diastolic blood pressure 80 mm[Hg] Milton Blake APRN-PAZ Work Phone: [facility] [employer] [facility] 08-10-2023 15:38-0500 Heart rate 74 /min Milton Blake APRN-PAZ Work Phone: [facility] [employer] [facility] 08-10-2023 15:38-0500 SaO2% (BldA) [Mass fraction] 97 % Milton Blake APRN-PAZ Work Phone: [facility] [employer] [facility] 08-10-2023 15:38-0500 Systolic blood pressure 140 mm[Hg] Milton Blake APRN-PAZ Work Phone: [facility] 02-04-2023 13:00-0400 Body temperature 98.2 [degF] MD Ru Johnson Jr Work Phone: [facility] 02-04-2023 13:00-0400 Diastolic blood pressure 69 mm[Hg] MD Ru Johnson Jr Work Phone: [facility] 02-04-2023 13:00-0400 Heart rate 66 /min MD Ru Johnson Jr Work Phone: [facility] 02-04-2023 13:00-0400 Respiratory rate 18 /min MD Ru Johnson Jr Work Phone: [facility] 02-04-2023 13:00-0400 SaO2% (BldA) [Mass fraction] 97 % MD Ru Johnson Jr Work Phone: [facility] 02-04-2023 13:00-0400 Systolic blood pressure 112 mm[Hg] MD Ru Johnson Jr Work Phone: [facility] 02-04-2023 08:00-0400 Inhaled oxygen flow rate 2 L/min MD Ru Johnson Jr Work Phone: [facility] 02-04-2023 06:00-0400 Body weight 189.9 kg MD Ru Johnson Jr Work Phone: [facility] 02-03-2023 04:09-0400 Body height 170.18 cm MD Ru Johnson Jr Work Phone: [facility] Encounters Encounter Date Encounter Type Care Provider Facility Start: 06-05-2024 End: 06-06-2024 Refill Milton Blake FITTING ROOM ATTENDANT-STANDARDS ENGINEER [facility] Comment on above: Neuropathy Start: 05-05-2024 End: 05-22-2024 Telephone encounter Milton Blake FITTING ROOM ATTENDANT-STANDARDS ENGINEER [facility] Start: 04-26-2024 End: 04-26-2024 Orders Only Milton Blake FITTING ROOM ATTENDANT-STANDARDS ENGINEER Work Phone: [facility] Comment on above: Type 2 diabetes nori itus with hyperglycemia, without long-term current use of insulin ([facility] Start: 04-10-2024 End: 04-10-2024 ambulatory [facility] Start: 10-04-2023 End: 10-04-2023 Office outpatient visit 25 minutes Milton Blake FITTING ROOM ATTENDANT-STANDARDS ENGINEER Work Phone: [facility] Comment on above: Type 2 diabetes nori itus with hyperglycemia, without long-term current use of insulin ([facility]) (Primary Dx); Mixed hyperlipidemia; Bilateral lower extremity edema; Benign essential HTN; Osteoarthritis of multiple joints, unspecified osteoarthritis type; Itching Start: 10-04-2023 End: 10-04-2023 ambulatory [facility] Start: 08-31-2023 Orders Only Milton kim FITTING ROOM ATTENDANT-STANDARDS ENGINEER [facility]: [facility] Comment on above: Type 2 diabetes nori itus with hyperglycemia, without long-term current use of insulin ([facility] Start: 08-30-2023 Refill Milton kim FITTING ROOM ATTENDANT-STANDARDS ENGINEER [facility]: [facility] Comment on above: Type 2 diabetes nori itus with hyperglycemia, without long-term current use of insulin ([facility] Start: 08-11-2023 End: 08-11-2023 ambulatory [facility] Start: 08-10-2023 End: 08-10-2023 Office outpatient visit 40 minutes Milton Blake FITTING ROOM ATTENDANT-STANDARDS ENGINEER Work Phone: [facility] Comment on above: Type 2 diabetes nori itus with hyperglycemia, without long-term current use of insulin ([facility] (Primary Dx); Mixed anxiety and depressive disorder; Bilateral lower extremity edema; Benign essential HTN; Acute non-recurrent maxillary sinusitis; Osteoarthritis of multiple joints, unspecified osteoarthritis type; Mixed hyperlipidemia; Vitamin D deficiency; Upper respiratory tract infection, unspecified type Start: 08-10-2023 End: 08-10-2023 ambulatory [facility] Start: 07-31-2023 Refill Milton kim FITTING ROOM ATTENDANT-STANDARDS ENGINEER Work Phone: [facility] Comment on above: Benign essential HTN ; Hypokalemia; Bilateral lower extremity edema Start: 02-03-2023 End: 02-04-2023 Evaluation and management of inpatient Milton Blake Facility:[facility] Start: 02-03-2023 End: 02-04-2023 Evaluation and management of inpatient MD Ru Johnson Jr Work Phone: [facility] Work Phone: Start: 09-29-2021 End: 09-29-[address] BRODIE LEONG Facility:[facility] Start: 07-13-2021 End: 08-13-2021 ambulatory DEANNA JAMES Facility:[facility] Start: 07-09-2021 End: 07-09-2021 ambulatory KATIE TEGAN Facility:[facility] Start: 04-18-2021 End: 07-11-[address] DOCTOR LUJAN Facility:[facility] Start: 03-25-2021 End: 03-26-2021 ambulatory ESTER LOPEZ Facility:[facility] Start: 12-27-2020 Patient encounter status Gibson barry Hayden FITTING ROOM ATTENDANT-STANDARDS ENGINEER Work Phone: [employer] Work Phone: Start: 12-27-2020 Preoperative state Milton Philippe cadena FITTING ROOM ATTENDANT-STANDARDS ENGINEER Work Phone: [employer] Start: 07-11-2014 End: 07-12-2014 Patient encounter procedure PATRICK BOYCEPTA Facility:[facility] Procedures Date Procedure Procedure Detail Performing Clinician Start: 04-10-2024 Adult depression screening assessment Milton Blake FITTING ROOM ATTENDANT-STANDARDS ENGINEER Work Phone: Start: 10-04-2023 Follow-up visit Follow-up MILTON BLAKE Start: 10-04-2023 Adult depression screening assessment Milton Blake FITTING ROOM ATTENDANT-STANDARDS ENGINEER Work Phone: Start: 08-10-2023 Hemoglobin glycosyla frida a1c Milton Blake FITTING ROOM ATTENDANT-STANDARDS ENGINEER Work Phone: Start: 03-03-2023 Adult depression screening assessment Miltonbelén Blake FITTING ROOM ATTENDANT-STANDARDS ENGINEER Work Phone: Start: 02-03-2023 CL AO [facility] [...] DTaP,Tdap and Td Vaccines (2 - Tdap) [facility] Start: 04-10-2025 Adult BMI Follow Up Plan Adult BMI Follow Up Plan [facility] Start: 04-10-2025 Adult BMI Screening Adult BMI Screening [facility] Start: 04-10-2025 Depression Screening Depression Screening [facility] Start: 04-10-2025 Tobacco Screening Tobacco Screening [facility] Start: 10-03-2024 Adult BMI Screening Adult BMI Screening [facility] Start: 10-03-2024 Depression Screening Depression Screening [facility] Start: 10-03-2024 Tobacco Screening Tobacco Screening [facility] Start: 09-27-2024 End: 09-27-2024 Patient encounter procedure 09/27/2024 3:20 PM EDT Office Visit [facility] [address] [place] [address] Milton Blake, FITTING ROOM ATTENDANT-[facility] [address] [place] [address] [facility] Start: 08-11-2024 Tobacco Screening Tobacco Screening [facility] Start: 08-10-2024 Adult BMI Follow Up Plan Adult BMI Follow Up Plan [facility] Start: 08-10-2024 Adult BMI Screening Adult BMI Screening [facility] Start: 04-10-2024 End: 04-10-2024 Patient encounter procedure 04/10/2024 4:00 PM EDT Office Visit [facility] [address] [place] [address] Milton Blake, FITTING ROOM ATTENDANT-STANDARDS ENGINEER [address] [place] [address] [facility] Start: 03-12-2024 COVID-19 Vaccine ( season) COVID-19 Vaccine ( season) [facility] Start: 03-12-2024 COVID-19 Vaccine ( season) COVID-19 Vaccine () [facility] Start: 03-12-2024 Influenza vaccination Influenza Vaccine [facility] Start: 03-03-2024 Adult BMI Follow Up Plan Adult BMI Follow Up Plan [facility] Start: 03-03-2024 Adult BMI Screening Adult BMI Screening [facility] Start: 03-03-2024 Depression Screening Depression Screening [facility] Start: 03-03-2024 Tobacco Screening Tobacco Screening [facility] Start: 11-10-2023 End: 11-10-2023 Patient encounter procedure 11/10/2023 3:30 PM EDT Office Visit [facility] Family Medicine [address] [place] [address] Milton Blake, FITTING ROOM ATTENDANT-STANDARDS ENGINEER [address] [place] [address] [facility] Internal Medicine - Family Medicine Start: 08-02-2023 End: 08-02-2023 Patient encounter procedure 08/02/2023 3:30 PM EST Office Visit [facility] Internal Medicine - Family Medicine [address] [place] [address] Milton Blake, FITTING ROOM ATTENDANT-STANDARDS ENGINEER [address] [place] [address] [facility] Internal Medicine - Family Medicine Start: 03-12-2023 COVID-19 Vaccine ( season) COVID-19 Vaccine () [facility] Start: 03-12-2023 Influenza vaccination Influenza Vaccine [facility] Start: 02-04-[address] [facility] Start: 02-03-2023 Hospital admission [facility] Start: 02-03-2023 Referral to cardiac rehabilitation program [facility] Start: 02-03-[address] [facility] Start: 01-19-2012 Administration of varicella zoster vaccine Zoster (Shingles) Vaccine (1 of 2) [facility] Start: 1983 Screening for malignant neoplasm of cervix Pap Smear [facility] Start: 01-19-1980 Diabetic foot examination Diabetic Foot Exam [facility] Start: 1962 Glaucoma screening Diabetic Ophthalmology Exam [facility] Start: 1962 Urine screening for protein Urine Microalbumin [facility] Patient Education Heart Failure, Adult (DC) Coronary Angioplasty (DC) Coronary Stenting (DC) Angina (DC) Chest Pain (DC) Drug Eluting Stents [facility] Work Phone: Patient referral [facility] Work Phone: Immunizations Immunization Date Immunization Notes Care Provider Tsering esquivel 08-07-2020 COVID-19, mRNA, LNP- S, PF, 30mcg/0.3mL Dose Milton Blake FITTING ROOM ATTENDANT-STANDARDS ENGINEER Work Phone: [facility] 07-17-2020 COVID-19, mRNA, LNP- S, PF, 30mcg/0.3mL Dose Milton Blake FITTING ROOM ATTENDANT-STANDARDS ENGINEER Work Phone: [facility] 04-30-2020 diphtheria, tetanus toxoids and pertussis vaccine Milton Blake FITTING ROOM ATTENDANT-STANDARDS ENGINEER Work Phone: [facility] 04-26-2009 novel Influenza-H1N1 -09, live virus for nasal administration Milton Blake FITTING ROOM ATTENDANT-STANDARDS ENGINEER Work Phone: [facility] 04-26-2009 influenza virus vacc ine, unspecified formulation Milton Blake FITTING ROOM ATTENDANT-STANDARDS ENGINEER Work Phone: [facility] Payers Date Payer Category Payer Private Health Insurance [facility] [id number] 2023 Unknown [id number] 2023 Self-pay [id number] 2021 Unknown [facility] [id number] 2021-Present [phone] [address] [address] [place] [address] [id number] 1962 Unknown [id number] .647 1962 Unknown [id number] .593 1962 Unknown [id number] .593 1962 Unknown [id number] .593 1962 Unknown [id number] .593 1962 Unknown [id number] [id number] .647 1962 Unknown [id number] [id number] .1286 1962 Unknown [id number] [id number] .1286 1962 Unknown [id number] [id number] .1286 1962 Unknown [id number] [id number] .1286 1959 Medicaid [id number] 1959 Unknown [id number] 1959 Unknown [id number] Medicaid [id number] Unknown [id number] .[id number] Worker's Compensation [id number] Social History Date Type Detail Facility Start: 02-03-2023 Tobacco smoking stat [facility] Smoker (finding) [facility] Start: 1960 Sex Assigned At Female F [facility] Start: 12-21-2022 End: 04-10-2024 Tobacco smoking status RUST Ex-smoker [facility] History of tobacco use Cigarette Smoker [facility] Start: 12-21-2022 End: 04-10-2024 Cigarettes smoked current (pack per day) - Reported 2 [facility] Start: 12-21-2022 End: 04-10-2024 Tobacco use and exposure Smokeless tobacco non-user [facility] Start: 03-03-2023 End: 04-10-2024 Alcohol intake Current drinker of alcohol (finding) [facility] Start: 03-03-2023 End: 04-10-2024 Tobacco use panel [facility] Adolescent depressio n screening assessment 0 [facility] Start: 01-20-2021 Alcohol Comment RARELY [facility] Start: 1960 Sex Assigned At Not on file P [facility] Start: 02-14-2015 Sex Female (finding) [facility] Medical Equipment Procedure Code Equipment Code Equipment Origin al Text Equipment Identifier Dates CL STENT PRABHAKAR FRONTIER 5.0 X 26 FDA Start: 02-03-2023 Monitor blood ma gars twice daily [id number] Start: 03-03-2023 Monitor blood ma gars twice daily [id number] Start: 03-03-2023 Inject 1 Pen Nee dle into the skin in the morning. [id number] Start: 05-06-2023 Goals Date Patient Goal Desired Activity /State Functional Status Date Assessment Result Facility 02-04-2023 Functional status Patient at Baseline [facility] Work Phone: Mental Status Date Assessment Result Facility 02-04-2023 Cognitive function Cognitive Sta tus Patient at Baseline [facility] Work Phone: Clinical Notes 02-03-2023 to 05-05-2024 Telephone Encounter - Krystle Kirkpatrick - 05/05/2024 10:38 AM EDTTelephone Encounter - Krystle Kirkpatrick - 05/05/2024 10:38 AM EDTTelephone Encounter - Krystle Kirkpatrick - 05/05/2024 10:38 AM EDT Note Date & Type Note Facility 05-05-2024 Miscellaneous Notes Called for assistance lease picker LM on VM Picking up 05/22 documented in this encounter [facility] 05-05-2024 Telephone encounter Note [facility]2024 Telephone encounter Note LM on VM [facility] 05-05-2024 Telephone encounter Note Picking up 05/22 [facility] [employer] 10-04-2023 History of Presen t illness Narrative Images from the original note were not included. [address] [place] [phone] SUBJECTIVE: Patient ID: Francisca Kumar is a [...] provides significant improvement. Hypertensive end-organ damage includes CAD/AZ and left ventricular hypertrophy. Diabetes Follow up. [...] 01/27/2021 Performed by Mckenna Pena MD at [facility] C[facility]ATH [facility]S CORONARY ANGIOPLASTY WITH STENT PLACEMENT CORONARY ANGIOPLASTY WITH STENT PLACEMENT 02/03/2023 Coronary fractional flow reserve N/A 01/27/2021 Performed by Mckenna Pena MD at [facility] C[facility]ATH [facility]S DILATION AND CURETTAGE OF UTERUS KNEE SURGERY Left ventriculogram or left ventricular pressure only N/A 01/27/2021 Performed by Mckenna Pena MD at [facility]ATH [facility] Past Medical History: Diagnosis Date Allergic Arthritis Back pain CAD (coronary artery disease) Chest pain CHF (congestive heart failure) ([facility] Depression Depression GERD (gastroesophageal reflux disease) History of DVT (deep vein thrombosis) Hyperlipidemia Hypertension Meniscal injury right Myocardial infarction ([facility]) Obesity Osteoporosis Vitamin D deficiency Immunization [...] hyperglycemia, without long-term current use of insulin ([facility]) - Discontinue: semaglutide (OZEMPIC) 0.25 mg or [...] Kelly 10/04/23 1710 documented in this encounter [facility] 08-10-2023 History of Presen t illness Narrative Images from the original note were not included. [address] [facility] [address] SUBJECTIVE: Patient ID: Francisca Kumar is a [...] provides significant improvement. Hypertensive end-organ damage includes CAD/AZ and left ventricular hypertrophy. Diabetes She presents [...] 01/27/2021 Performed by Mckenna Pena MD at [facility] C[facility]ATH [facility]S CORONARY ANGIOPLASTY WITH STENT PLACEMENT CORONARY ANGIOPLASTY WITH STENT PLACEMENT 02/03/2023 Coronary fractional flow reserve N/A 01/27/2021 Performed by Mckenna Pena MD at [facility] CARD[facility] CATH [facility]S DILATION AND CURETTAGE OF UTERUS KNEE SURGERY Left ventriculogram or left ventricular pressure only N/A 01/27/2021 Performed by Mckenna Pena MD at [facility] C[facility] CATH [facility] Past Medical History: Diagnosis Date Allergic Arthritis Back pain CAD (coronary artery disease) Chest pain CHF (congestive heart failure) ([facility]) Depression Depression GERD (gastroesophageal reflux disease) History of DVT (deep vein thrombosis) Hyperlipidemia Hypertension Meniscal injury right Myocardial infarction ([facility]) Obesity Osteoporosis Vitamin D deficiency Immunization History [...] hyperglycemia, without long-term current use of insulin ([facility]) - POCT Hemoglobin A1c - liraglutide [...] throat. Motrin or Tylenol as needed per reed fixer guidelines for fever or pain. -Start Zpak, [...] Kelly 08/11/23 1037 documented in this encounter [facility] [employer] 02-04-2023 Hospital Discharg e instructions Additional Instructions [...] doctor or pharmacist, without first calling the field traffic investigator who implanted the stent. If you require [...] weight lifting, stair steppers, etc. until the field traffic investigator approves these activities. Check with the field traffic investigator on your first follow-up visit. CALL YOUR PHYSICIAN at [phone]: -If bleeding should occur from the catheter insertion site- apply pressure to the site then immediately call us. -Report any fever, redness, drainage, increased swelling, or firmness at the catheter insertion site. Some bruising or slight swelling may be present at the time of discharge. -Should arm or leg become cold, numb, white, or blue, contact the field traffic investigator immediately. -IF you should experience episodes of [...] is recommended. Please call Central Scheduling at [phone] to schedule your appointment.] The attending field traffic investigator or [facility] nurse clinician should provide you with specific instructions regarding activity, diet, medications, and further follow up for you. Follow the medication instructions provided on your discharge. If the dosages and instructions on this sheet differ from the dosage and instructions on the bottle, follow the instructions on the bottle. [facility] is not responsible for incorrect prescription information provided by the patient during their visit. Do not stop your medications without consulting your health care provider. Please take the list with you to your next doctor's appointment. [facility] Work Phone: 02-03-2023 History and physi denise note Note Date/Time February 03, 2023 2:09am [facility] [address] [place] [address] Cardiology H&P Signed Patient: Francisca Kumar MR#: [id number] : 1960 Acct:[id number] Age/Sex: 63 / F Adm Date: 3 Loc: CL Room: Type: [facility] Attending Dr: Jesse Lombardo DO Copies to: NON STAFF Jesse Lombardo DO~ Date of Service: 02/03/2023 Cardiology HPI History of Present Illness Chief complaint: Inferolateral STEMI HPI: Ms. Kumar is a 63 year old female admitted in transfer from [facility] with acute onset angina earlier this evening, ECG transmitted by [employer] to [facility] and to my phone directly revealing acute inferolateral ST elevation injury current. Patient arrived and received appropriate upstream antithrombotic and antiplatelet therapy is under my direction, and was transferred to the [facility] for emergent intervention. Patient arrived in ER at 0130, [facility] at 0155 after receiving appropriate upstream antithrombotic [...] and no additional complaints, except as documented [facility] Medical History (Updated 02/03/23 @ 02:57 [...] x10E3/uL Lymph # (Auto) 2.0 (1.00-4.8) x10E3/uL Chicot # (Auto) 0.6 (0.0-0.8) x10E3/uL Eos # (Auto) 0.3 (0.0-0.45) x10E3/uL Baso # (Auto) 0.1 (0.0-0.2) x10E3/uL Intake and Output 02/02/23 02/02/23 02/03/23 15:59 23:59 07:59 Other: Weight 187.8 kg Patient Weight 02/03/23 23:59 Weight 187.8 kg Lab 02/03/23 01:41 PT 10.3 INR 0.9 EKG Interpretations EKG EKG results cardiology: sinus rhythm EKG shows: tachycardia AZ, pacemaker, normal Myocardial infarction: inferior AZ (acute or recent) A&P - Cardiology (1) [...] <Electronically signed by Jesse Lombardo DO> 02/03/23302 [facility] Work Phone: 1(795) 545-906007-26-[address] [facility] [facility] HospitalDischarge summary Author Jesse Lombardo [facility] February 04, 2023 5:03pm Note Date/Time February 04, 2023 5:02 pm [facility] [address] [place] [address] Discharge Summary Signed Patient: Francisca Kumar MR#: [id number] : 1960 Acct:[id number] Age/Sex: 63 / F Adm Date: 3 Loc: Room: [address] [place] [address]: Jesse Lombardo DO Copies to: [...] % (Auto) 64.2, Lymph % (Auto) 23.8, Chicot % (Auto) 7.0, Eos % (Auto) 4.3, Baso % (Auto) 0.7, Nucleat RBC Rel Count 0.1, Neut # (Auto) 6.3, Lymph # (Auto) 2.3, [place]ot # (Auto) 0.7, Eos # (Auto) 0.4, Baso # (Auto) 0.1 02/03/23 18:37: Troponin I High Sens 79981.0 H* Exam Physical Exam Vital Signs: Temp [...] doctor or pharmacist, without first calling the field traffic investigator who implanted the stent. If you require [...] weight lifting, stair steppers, etc. until the field traffic investigator approves these activities. Check with the field traffic investigator on your first follow-up visit. CALL YOUR PHYSICIAN at [phone]: -If bleeding should occur from the catheter insertion site- apply pressure to the site then immediately call us. -Report any fever, redness, drainage, increased swelling, or firmness at the catheter insertion site. Some bruising or slight swelling may be present at the time of discharge. -Should arm or leg become cold, numb, white, or blue, contact the field traffic investigator immediately. -IF you should experience episodes of [...] is recommended. Please call Central Scheduling at [phone] to schedule your appointment.] The attending field traffic investigator or [facility] nurse clinician should provide you with specific instructions regarding activity, diet, medications, and further follow up for you. Follow the medication instructions provided on your discharge. If the dosages and instructions on this sheet differ from the dosage and instructions on the bottle, follow the instructions on the bottle. [facility] is not responsible for incorrect prescription [...] signed by Jesse Lombardo DO> 02/04/23 1703 [facility] Work Phone: Evaluation note* Diagnosis Onset Date Resolution Status Accelerated hypertension acu te Arthritis acute Femoral vein thrombosis, right acute H/O heart artery stent acute Morbid obesity acute ST elevation myocardial infa rction (STEMI) of inferior wall acute [facility] Work Phone: Evaluation note* Diagnosis Benign essential HTN Hypokalemia Hypopotassemia Bilateral lower extremity edema Type 2 diabetes mellitus with hyperglycemia, without long-term current use of insulin ([facility])- Primary documented in this encounter [facility] SystemEvaluation note* Diagnosis Type 2 diabetes mellitus with hyperglycemia, without long-term current use of insulin ([facility])- Primary Mixed anxiety and depressive disorder Dysthymic disorder Bilateral lower extremity edema Benign essential HTN Acute non-recurrent maxillary sinusitis Osteoarthritis of multiple joints, unspecified osteoarthritis type Mixed hyperlipidemia Vitamin D deficiency Upper respiratory tract infection, unspecified type documented in this encounter [facility] SystemEvaluation note* Diagnosis Type 2 diabetes mellitus with hyperglycemia, without long-term current use of insulin ([facility]) [facility]* Diagnosis Type 2 diabetes mellitus with hyperglycemia, without long-term current use of insulin ([facility]) documented in this encounter [facility] SystemEvaluation note* Diagnosis Type 2 diabetes mellitus with hyperglycemia, without long-term current use of insulin ([facility])- Primary Mixed hyperlipidemia Bilateral lower extremity edema Benign essential HTN Osteoarthritis of multiple joints, unspecified osteoarthritis type Itching Unspecified pruritic disorder documented in this encounter [facility] SystemEvaluation note* Diagnosis Type 2 diabetes mellitus with hyperglycemia, without long-term current use of insulin ([facility]) documented in this encounter [facility] SystemEvaluation note* Diagnosis Neuropathy Mononeuritis of unspecified site documented in this encounter [facility] SystemInstructionsNot on filedocumented in this encounter [facility] SystemInstructions* Attachments The following attachments cannot be sent through Care Everywhere. * Sinusitis in adults ([place]) [facility] SystemInstructionsNot on file documented in this encounter[facility] SystemInstructionsNot on file documented in this encounter[facility] SystemInstructions* Attachments The following attachments cannot be sent through Care Everywhere. * Coronary artery disease ([place]) documented [facility] SystemInstructionsNot on file documented in [facility] Summary Purpose Family History Relationship Condition [...] Mixed anxiety and depressive disorder Milton Blake, FITTING ROOM ATTENDANT-STANDARDS ENGINEER [address] [place] [address] Referral ID Status Reason Start Date Expiration Date V isits Requested Visits Authorized [id number] Pending Review 1 1 Additional Source Comments INFORMATION SOURCE (unrecogn ized section and content) DATE CREATED AUTHOR 02/19/2019 [facility] DATE CREATED AUTHOR AUTHOR'S ORGANIZ ATION 12/03/2021 [facility] DATE CREATED AUTHOR AUTHOR'S ORGANIZ ATION 12/24/2021 [facility] DATE CREATED AUTHOR AUTHOR'S ORGANIZ ATION 03/11/2023 [facility] DATE CREATED AUTHOR AUTHOR'S ORGANIZ ATION 08/15/2023 [facility] DATE CREATED AUTHOR AUTHOR'S ORGANIZ ATION 04/11/2024 [facility] Care Teams (unrecognized sec tion and content) Team Status: Active Member Role Status Dates Milton Blake , MRP CONTROLLER-C Primary Care Provider Active Team Status: Inactive Member Role Status Dates Ru Johnson Jr, MD Emergency Provider Active W Real Lombardo , Admit Provider, Attending Provide r Active Milton Blake , MRP CONTROLLER-C Primary Care Provider Active Basket Patcher Relationship Specialty Start Date End Date Milton Blake APRN-STANDARDS ENGINEER [address] [place] [address] PCP - General Family Medicine 12/21/22 Basket Patcher Relationship Specialty Start Date End Date Milton Blake APRN-STANDARDS ENGINEER [address] [place] [address] PCP - General Family Medicine 12/21/22 Basket Patcher Relationship Specialty Start Date End Date Milton Blake APRN-PAZ [address] [place] [address] PCP - General Family Medicine 12/21/22 Basket Patcher Relationship Specialty Start Date End Date Milton Blake APRN-STANDARDS ENGINEER [address] [place] [address] PCP - General Family Medicine 12/21/22 Basket Patcher Relationship Specialty Start Date End Date Celia Blakee AlenaRAMON-PAZ [address] [place] [address] PCP - General Family Medicine 12/21/22 Basket Patcher Relationship Specialty Start Date End Date Milton BlakeRAMONSTANDARDS ENGINEER [address] [place] [address] PCP - General Family Medicine 12/21/22 Basket Patcher Relationship Specialty Start Date End Date Milton BlakeRAMONSTANDARDS ENGINEER [address] [place] [address] PCP - General Family Medicine 12/21/22 Reason [...] BE BASED ON THE PRIMARY CLINICAL RECORDS. [facility] [employer] provides no warranty or guarantee of the accuracy or completeness of information in this document.
[2024-06-10] VITALS (8 sets, daily range): BP systolic 115–132; BP diastolic 62–76; PULSE 60–79; TEMP 36.3–36.7; O2SAT 63–97
--- NOTE | 2024-06-10 06:00 | ECG_ITS ---
[facility] Test Date: 2024-06-10 Pat Name: TABBY VENCES Department: Room: [facility] Gender: Female Landscape Crew Member: : 1960 Requested By: [id number] Order Number: [id number] Reading MD: JOSELITO BRUNO Measurements Intervals [place] Rate: 57 P: 52 [place]: 248 QRS: 30 QRSD: 114 T: 75 QT: 458 QTc: 448 Interpretive Statements SINUS BRADYCARDIA WITH FIRST DEGREE AV BLOCK LOW QRS VOLTAGE IN PRECORDIAL LEADS [QRS DEFLECTION < 1.0 mV IN CHEST LEADS] Electronically Signed On 06-11-2024 7:41:30 EST by JOSELITO BRUNO
[2024-06-10 06:41] LABS: Basophils Absolute Auto 0.1 10^3/uL (0.0-0.1); Basophils Percent Auto 1.1 % (0.2-2.0); Eosinophils Absolute Auto 0.4 10^3/uL (0.0-0.7); Eosinophils Percent Auto 4.9 % (0.9-7.0); Hematocrit 43.7 % (36.0-48.0); Hemoglobin 13.5 g/dL (12.0-16.0); Immature Granulocytes Abs Auto 0.02 10^3/uL (0.00-0.03); Immature Granulocytes Pct Auto 0.3 % (0.0-0.5); Lymphocytes Absolute Auto 2.7 10^3/uL (1.2-3.8); Lymphocytes Percent Auto 36.1 % (20.5-60.0); Mean Corpuscular HGB Conc 30.9 g/dL (29.9-35.2); Mean Corpuscular Hemoglobin 27.6 pg (26.7-34.0); Mean Corpuscular Volume 89.4 fL (81.0-99.0); Mean Platelet Volume 11.4 fL (9.5-13.5); Monocytes Absolute Auto 0.5 10^3/uL (0.3-0.8); Monocytes Percent Auto 6.6 % (1.7-12.0); Neutrophils Absolute Auto 3.8 10^3/uL (1.4-6.5); Platelet Count 246 10^3/uL (150-450); Red Blood Count 4.89 10^6/uL (4.20-5.40); Red Cell Distribution Width 14.5 % (11.0-15.0); White Blood Count 7.4 10^3/uL (4.0-11.0)
[2024-06-10 06:57] LABS: Alanine Aminotransferase 27 U/L (14-59); Albumin Globulin Ratio 0.9; Albumin Level 3.1 g/dL (3.4-5.0); Alkaline Phosphatase 121 U/L (46-116); Anion Gap 12.3; Aspartate Amino Transferase 18 U/L (15-37); BUN Creatinine Ratio 15.3; Bilirubin Total 0.3 mg/dL (0.2-1.0); Calcium 8.6 mg/dL (8.5-10.1); Carbon Dioxide 28.3 mmol/L (21.0-32.0); Chloride 104 mmol/L (98-107); Estimated GFR (African America 56 (>=60 mL/min/1.73m^2); Estimated GFR (Non-African Ame 46 (>=60 mL/min/1.73m^2); Globulin 3.5 g/dL; Glucose 162 mg/dL (74-106); Potassium 3.6 mmol/L (3.5-5.1); Sodium 141 mmol/L (136-145); Total Protein 6.6 g/dL (6.4-8.2)
[2024-06-10 06:59] LABS: Chol HDL Ratio 4.2; Cholesterol 192 mg/dL (<=200); HDL Cholesterol 46 mg/dL (40-60); Triglycerides 218 mg/dL (<=150); VLDL CHOLESTEROL 43.6 mg/dL
[2024-06-10 07:08] LABS: Troponin I High Sensitivity 12.2 pg/mL (4.0-51.3)
[2024-06-10 07:13] LABS: Thyroid Stimulating Hormone 3.667 uIU/mL (0.358-3.740)
[2024-06-10 07:15] LABS: Estimated Average Glucose 128 mg/dL; Glycohemoglobin A1C 6.1 % (4.5-6.2)
--- NOTE | 2024-06-10 12:31 | P.HP_ITS ---
HPI H&P: HPI History of Present Illness Chief complaint: CHEST PAIN Narrative: HPI and Hospital Course: 64-year-old female with past medical history of hypertension, prediabetes and coronary artery disease status post PCI last year in December was in her usual state of health when she started to experience left-sided chest discomfort that was radiating to her left arm while she was at work. Patient is a nurse at [employer] and when she checked her pulse and blood pressure, she noticed that her pulse was in the 120s and her systolic blood pressure was 170 and above which is quite unusual for her. She decided to come to ED for further evaluation. Initially her blood pressure was poorly controlled and elevated but after she received sublingual nitro, her symptoms resolved and her blood pressure improved. She had an EKG that did not reveal any significant/acute changes. Her cardiac enzymes x 3 were negative. Patient reports that for past 1 week she had experience worsening shortness of breath and lower extremity edema and she was using extra Lasix for past few days. She feels that her lower extremity edema and shortness of breath had improved but she is now developing dry cough since yesterday. She also feels that her nose is congested but denies fever. Chest x-ray upon admission showed possible right infrahilar infiltrate along with increased vascular markings consistent with mild volume overload. Upon my evaluation today, she felt better and denied shortness of breath, chest pain, palpitation. I discussed her labs, EKG and chest x-ray findings with her. I asked her to take extra dose of Lasix for 2 more days to help with volume overload. I will also call in oral doxycycline for her so that she can be treated for community-acquired pneumonia. Patient was educated on worrisome signs and symptoms and was instructed to return to ED if she developed those signs or symptoms. Patient was also instructed to follow-up with PCP and cardiology in 1 to 2 weeks. She is medically stable for discharge. Opioid HPI Opioid Management Most Recent Pain and Opioid Data: Last Pain Scale 2 06/09/24 21:06 06/09/24 Last Pain Assessment 06/10/24 12:00 Last ED Pain Assessment 06/09/24 18:02 Last ORT Total Score 1 06/09/24 21:25 06/09/24 Last ORT Risk Category Low Risk 06/09/24 21:25 06/09/24 Review of Systems ROS Status of ROS 10 or more systems reviewed and unremark able except as noted in history and below [facility] Medical History (Updated 06/10/24 @ 12:37 by Shaikh Berenice MD) Morbid obesity ?E66.01 - Morbid (severe) obesity due to excess calories (ICD-10) HLD (hyperlipidemia) ?E78.5 - Hyperlipidemia, unspecified (ICD-10) History of left heart catheterization ?Z98.890 - Other specified postprocedural states (ICD-10) Lateral meniscus tear ?S83.289A - Other tear of lateral meniscus, current injury, unspecified knee, initial encounter (ICD-10) Numbness and tingling ?R20.0 - Anesthesia of skin (ICD-10) ?R20.2 - Paresthesia of skin (ICD-10) Hypertension ?I10 - Essential (primary) hypertension (ICD-10) High cholesterol ?E78.00 - Pure hypercholesterolemia, unspecified (ICD-10) Congestive heart failure ?I50.9 - Heart failure, unspecified (ICD-10) Prediabetes ?R73.03 - Prediabetes (ICD-10) Arthritis ?M19.90 - Unspecified osteoarthritis, unspecified site (ICD-10) STEMI (ST elevation myocardial infarction) ?I21.3 - ST elevation (STEMI) myocardial infarction of unspecified site (ICD- 10) Social History (Updated 06/10/24 @ 12:36 by Shaikh Berenice MD) Within the past year, how often did you have a drink containing alcohol: never Within the past year, how many standard drinks containing alcohol did you have on a typical day: 1 or 2 Within the past year, how often did you have six or more drinks on one occasion: never Total score: 0 Score interpretation: A score less than 3 is consistent with normal alcohol consumption. Smoking status: Current every day smoker Non-prescribed substance use: denies use Highest level of school completed/degree received: high school graduate Little interest or pleasure in doing things: not at all Feeling down, depressed, or hopeless: not at all Meds Home Medications and Allergies Home Medications ?Medication ?Instructions ?Recorded ?Confirmed ?Type atorvastatin 40 mg tablet 40 mg PO .qd 06/09/24 06/10/24 History furosemide 40 mg tablet 40 mg PO .24hr 06/09/24 06/09/24 History gabapentin 100 mg capsule 100 mg PO Q8H 06/09/24 06/09/24 History hydroxyzine HCl 10 mg tablet 10 mg PO Q8H PRN itching 06/09/24 06/10/24 History losartan 25 mg tablet 25 mg PO .qd 06/09/24 06/10/24 History meloxicam 15 mg tablet 15 mg PO .qd 06/09/24 06/10/24 History metoprolol succinate 25 mg 25 mg PO .qd 06/10/24 06/10/24 History tablet,extended release 24 hr potassium chloride 10 mEq 10 meq PO .qd 06/10/24 06/10/24 History tablet,extended release Allergies Allergy/AdvReac Type Severity Reaction Status Date / Time latex Allergy Mild itching Verified 06/09/24 21:31 diphenhydramine (From AdvReac Severe Anaphylaxis Verified 06/09/24 21:31 Benadryl) lisinopril AdvReac Severe Cough Verified 06/09/24 21:31 Exam Constitutional Vital Signs, click to edit/add: Last Vital Signs Temp 97.4 F L 06/10/24 07:34 Pulse 62 06/10/24 10:00 Resp 16 06/10/24 07:34 BP 115/62 06/10/24 07:34 Pulse Ox 95 06/10/24 07:34 O2 Del Method Room Air 06/10/24 07:34 Documenting provider has reviewed patient's vital signs: yes Common normals: no apparent distress and oriented x3 General appearance: cooperative Nutritional appearance: obese HENKS Common normals: normocephalic and head/scalp atraumatic Head and scalp: normocephalic and atraumatic Eye Common normals: conjunctivae normal and no scleral icterus Conjunctiva: conjunctiva(e) normal Respiratory Common normals: normal respiratory effort and clear to auscultation bilaterally Effort & inspection: able to speak in complete sentences Auscultation: clear to auscultation bilaterally Cardio Common normals: regular rate, S1 normal heart sound and S2 normal heart sound Rate: regular rate Heart sounds: S1 normal and S2 normal GI Common normals: Normal to inspection, nondistended, normoactive bowel sounds present, soft to palpation, non-tender and no hepatosplenomegaly Palpation: soft and no hepatosplenomegaly Extremity Common normals: no clubbing, cyanosis or edema Neuro Common normals: oriented x3, moves all extremities and no focal motor deficits Psych Common normals: mental status grossly normal, denies hallucinations, denies homicidal ideation and denies suicidal ideation Results Labs Labs: Short CBC 06/09/24 06/10/24 Range/Units 17:58 06:20 WBC 8.3 7.4 (4.0-11.0) 10^3/uL Hgb 14.5 13.5 (12.0-16.0) g/dL Hct 45.4 43.7 (36.0-48.0) % Plt Count 252 246 (150-450) 10^3/uL BMP 06/09/24 06/10/24 17:58 06:20 Sodium 139 141 Potassium 3.6 3.6 Chloride 103 104 Carbon Dioxide 27.3 28.3 BUN 19.0 H 18.0 Creatinine 1.27 H 1.18 H Glucose 167 H 162 H Calcium 8.7 8.6 Liver Function 06/09/24 06/10/24 Range/Units 17:58 06:20 Total Bilirubin 0.3 0.3 (0.2-1.0) mg/dL AST 17 18 (15-37) U/L ALT 29 27 (14-59) U/L Alkaline Phosphatase 130 H 121 H (46-116) U/L Albumin 3.4 3.1 L (3.4-5.0) g/dL Assessment and Plan Assessment and Plan (1) Chest pain: Assessment and Plan: Likely non cardiac. No sig EKG changes. Negative trop x 3. Cw ASA, Lopressor and Lipitor. Qualifiers: Chest pain type: pleurodynia Qualified Code(s): R07.81 - Pleurodynia (2) Acute on chronic diastolic (congestive) heart failure: Assessment and Plan: Mild volume overload. Recommend using extra lasix for 2 days. No resp distress, feels comfortable. (3) Right middle lobe pneumonia: Assessment and Plan: Stable for discharge on oral Doxycycline. Qualifiers: Pneumonia type: due to unspecified organism Qualified Code(s): J18.9 - Pneumonia, unspecified organism (4) Hypertension: Assessment and Plan: Well controlled now. Elevated on arrival. C/w home medications. Qualifiers: Hypertension type: primary hypertension Qualified Code(s): I10 - Essential (primary) hypertension (5) HLD (hyperlipidemia): Assessment and Plan: C/w lipitor Qualifiers: Hyperlipidemia type: unspecified Qualified Code(s): E78.5 - Hyperlipidemia, unspecified (6) Prediabetes: Assessment and Plan: on ozempic as outpatient. (7) Morbid obesity: Assessment and Plan: On Ozempic as outpatient. Recommended lifestyle modifications.
== END 2024-06-10 13:11 | disposition home or self-care (01) ==
LOC: ER 20:28 → MS 21:10
PROVIDERS: Physician Assistant; Registered Nurse; Admitting Provider Internal Medicine; Emergency Provider Emergency Medicine; PCP Nurse Practitioner; Visit Provider Internal Medicine
DX: R07.81 Pleurodynia (principal); I11.0 Hypertensive heart disease with heart failure; I50.33 Acute on chronic diastolic (congestive) heart failure; J18.9 Pneumonia, unspecified organism; E78.5 Hyperlipidemia, unspecified; E66.01 Morbid (severe) obesity due to excess calories; R73.03 Prediabetes; Z68.44 Body mass index [BMI] 60.0-69.9, adult; I25.10 Atherosclerotic heart disease of native coronary artery without angina pectoris; Z79.899 Other long term (current) drug therapy; I25.2 Old myocardial infarction; Z95.5 Presence of coronary angioplasty implant and graft; F17.290 Nicotine dependence, other tobacco product, uncomplicated; Z20.822 Contact with and (suspected) exposure to COVID-19
CPT/HCPCS: 36415; 71045; 80053; 80061; 83036; 83690; 83880; 84443; 84484; 85025; 85378; 85610; 87420; 87804; 87811; 93005; 99285; G0378

== ENCOUNTER 2024-08-18 17:11 | Emergency (ER) | payer OTHER, SELFPAY ==
--- OUTSIDE RECORDS SUMMARY | 2024-08-18 17:24 | XMS_ITS | CCD ---
Author Organization [facility] Care Team Providers Care Nurse Staff Industrial Name Role Phone PATRICK YOUSIF Admitting Unavailable PATRICK YOUSIF Attending Unavailable ANABEL MEJIA Referring Unavailable ANABEL MEJIA Primary Care Unavailable AL Procedure Practitioner Unavailab PATRICK Mullins Surgeon Unavailable JACOB, DEANNA Admitting Unavailable JACOBDEANNA GUSMAN Attending Unavailable MISC, DR GARRIDO Primary Care Unavailable KATIE JAVED Admitting Unavailable KATIE JAVED Consulting Unavailable KATIE JAVED Attending Unavailable TONAC, DR GARRIDO Primary Care Unavailable SALO, DR BRODIE Mcmahon Admitting Unavailable SALO, DR BRODIE Mcmahon Consulting Unavailable SALO, DR BRODIE Mcmahon Attending Unavailable [facility] Primary Care Unava ilMaycol Muller Consulting Unavailable MISC, DR GARRIDO Primary Care Unavailable JACOBDEANNA GUSMAN Admitting Unavailable JACOBDEANNA UGSMAN Attending Unavailable EBRAHEIMESTER Admitting Unavailable EBRAHEIM, ESTER Attending Unavailable EBDESEAN STEELIL Surgeon Unavailable MICHELLE BLACK Primary Care Unavailable MICHELLE BLACK Referring Unavailable AL Procedure Practitioner Unavailab MD Ru Fabian Jr Emergency Provider DO Jesse Lombardo Admit Provider [phone] DO Jesse Lombardo Attending Provider [phone] LUKE Blake Primary Care Provider Milton Blake Primary Care Unavailable Jesse Lombardo Attending Unavailable Jesse Lombardo Admitting Unavailable [place] PUBLIC ADDRESS SYSTEM OPERATOR-Milton MULLEN Primary Care Provid er MILTON BLAKE [...] sources) Aloe Extract Drug Allergy 5 [facility] (3 sources) diphenhydrAMINE ; Translations: [BENADRYL] Drug Allergy 3 [facility] (6 sources) Latex; Translations: [LATEX] Drug allergy (disorder) 4 Difficulty Breathing [facility] (1 source) hep b vaccine; Translations: [Unknown] Propensity to adverse reactions (disorder) 4 [facility] (1 source) Garlic preparation Drug Allergy 5 [facility] (3 sources) strawberry allergenic extract; Translations: [STRAWBERRY] Drug Allergy 5 [facility] (1 source) Hepatitis B Virus Vaccine,Recb Drug allergy (disorder) 7 [facility] (13 sources) HEPATITIS B VIRUS VACCINE; Translations: [HEPATITIS B VIRUS VACCINE] Propensity to adverse reactions (disorder) 0 Anaphylaxis [facility] (12 sources) diphenhydrAMINE ; Translations: [diphenhydramin e] Drug Allergy 6 Anaphylaxis [facility] (1 source) Latex Drug allergy (disorder) 3 [facility] (11 sources) Aloe vera preparation; Translations: [ALOE VERA] Drug Allergy 3 Rash [facility] (10 sources) Coconut Oil; Translations: [COCONUT OIL] [facility] ([facility]) Hepatitis B Surface Antigen Vaccine; Translations: [HEPATITIS B VIRUS VACCINE, RECOMBINANT] Drug Allergy 6 [facility] (8 sources) Latex Propensity to adverse reactions to drug 6 Shortness Of Breath [facility] (10 sources) Silver Nitrate; Translations: [SILVER NITRATE] Drug Allergy [address] [facility] [employer] [facility] (8 sources) strawberry allergenic extract Drug Allergy 0 Shortness Of Breath [facility] (9 sources) diphenhydrAMINE ; Translations: [DIPHENHYDRAMIN E HCL] Drug Allergy 5 Other (See Comments), Anaphylaxis [facility] (9 sources) Hepatitis B Surface Antigen Vaccine; Translations: [HEPATITIS B VACC-CPG 1018 (PF)] Drug Allergy 4 Other (See Comments) [facility] (5 sources) Ethinyl Estradiol / Levonorgestrel; Translations: [LEVONORGESTREL -ETHINYL ESTRAD] Drug Allergy 4 [facility] Medications Current Medications Medication Drug Class(es) Dates Sig (Normalized) Sig (Original) [id number] 200 actuat albuterol 0.09 mg/actuat metered dose [...] hyperglycemia, without long-term current use of insulin ([facility]) Use as instructed 1 each 03/03/2023 Active Start: 03-03-2023 blood-glucose meter (glucose monitoring kit) kit Indications: Type 2 diabetes mellitus with hyperglycemia, without long-term current use of insulin ([facility]) Use as instructed 1 each 0 03/03/2023 [...] hyperglycemia, without long-term current use of insulin ([facility]) Apply 1 Pad topically in the [...] hyperglycemia, without long-term current use of insulin ([facility]) Inject 0.5 mg under the skin every 7 days. 12 mL 3 04/26/2024 Active Start: 10-04-2023 End: 04-26-2024 semaglutide (OZEMPIC) 0.25 m g or 0.5 mg (2 mg/3 mL) pen injector Indications: Type 2 diabetes mellitus with hyperglycemia, without long-term current use of insulin ([facility]) Inject 0.5 mg under the skin every 7 days. 12 mL 3 10/04/2023 04/26/2024 Discontinued (Reorder) Start: 10-04-2023 semaglutide (O ZEMPIC) 0.25 mg or 0.5 mg (2 mg/3 mL) pen injector Indications: Type 2 diabetes mellitus with hyperglycemia, without long-term current use of insulin ([facility]) Inject 0.5 mg under the skin every 7 days. 12 mL 3 10/04/2023 Active Start: 10-04-2023 End: 10-04-2023 semaglutide (OZEMPIC) 0.25 m g or 0.5 mg (2 mg/3 mL) pen injector Indications: Type 2 diabetes mellitus with hyperglycemia, without long-term current use of insulin ([facility]) Inject 0.5 mg under the skin every [...] hyperglycemia, without long-term current use of insulin ([facility]) INJECT 0.3 mls SUBCUTANEOUSLY IN THE MORNING 3 mL 4 08/31/2023 10/04/2023 Discontinued (Ineffective) Start: 05-16-2023 End: 08-30-2023 liraglutide (VICTOZA 3-MELLY) 0.6 mg/0.1 mL (18 mg/3 mL) pen injector Indications: Type 2 diabetes mellitus with hyperglycemia, without long-term current use of insulin ([facility]) Inject 0.3 mL (1.8 mg total) [...] Coronary atherosclerosis; Translations: [Atherosclerotic heart disease of [place] coronary artery without angina pectoris] Onset: 12-27-2020 [...] 02-03-2023 02-03-2023 Chronic Other aftercare (1 source) residential (current) use of aspirin; Translations: [APPLICATION OPERATIONS ENGINEER CURRENT USE OF ASPIRIN] Onset: 10-01-2021 Episodic Other aftercare (1 source) Other rodent exterminator (current) drug therapy; Translations: [OTH [facility]FP CURRENT DRUG THERAPY] Onset: 10-01-2021 Episodic Other [...] fraction] 5.9 g/dL 4 - 7 g/dL [facility] Vitamin D 25 hydroxyon 08-10 Vitamin D+Metabolites [Mass/Vol] 27.2 ng/mL Low 30 - 100 ng/mL [facility] Comment on above: Vitamin D status 25 [place] Vitamin D Deficiency <20 ng/mL Insufficiency 20-29 ng/mL Sufficiency 30-100 ng/mL Toxicity >100 ng/mL NOTE: A pediatric reference range has not been established by the principal bioinformatics specialist of this kit. The [place] [employer] recommends a Vitamin D level of = or >20ng/mL in infants and children. Vitamin D+Metabolites [Mass/ Vol]on 08-10-2023 Interpretation and review of laboratory results Abnormal [facility] VITAMIN D 25 HYD TOT 27.2 ng/mL Low 30-100 [facility] Comment on above: Result Comment: Vitamin D status 25 [place] Vitamin D Deficiency <20 ng/mL Insufficiency 20-29 ng/mL Sufficiency 30-100 ng/mL Toxicity >100 ng/mL NOTE: A pediatric reference range has not been established by the principal bioinformatics specialist of this kit. The [place] [employer] recommends a Vitamin D level of = or >20ng/mL in infants and children. Performed By: #### [id number] #### [facility] ([id number]) [address] [place] [address], [address] [place] [address] Basic Metabolic Panelon 01-10 Anion gap [Moles/Vol] 9.3 mmol/L Normal 6.0-15.0 [facility] Comment on above: Order Comment: FASTI NG Y Performed By: #### H S TROP #### [facility] [address] [place] [id number] [place] Calcium [Mass/Vol] 8.7 mg/dL Normal 8.6-10.3 [facility] Comment on above: Order Comment: FASTI NG Y Performed By: #### H S TROP #### [facility] [address] [place] [address] [place] Chloride [Moles/Vol] 102 mmol/L Normal 98-107 [facility] Comment on above: Order Comment: FASTI NG Y Performed By: #### H S TROP #### [facility] [address] [place] [address] [place] CO2 [Moles/Vol] 30.1 mmol/L Normal 21.0-31.0 [facility] Comment on above: Order Comment: FASTI NG Y Performed By: #### H S TROP #### [facility] [address] [place] [address] [place] Creatinine [Mass/Vol] 0.99 mg/dL Normal 0.60-1.20 [facility] Comment on above: Order Comment: FASTI NG Y Performed By: #### H S TROP #### [facility] [address] [place] [address] [place] Creatinine Clr Calc Pharmacy 106.23 [facility] Comment on above: Order Comment: FASTI NG Y Performed By: #### H S TROP #### [facility] [address] [place] [address] [place] GFR/1.73 sq M.predicted MDRD (S/P/Bld) [Vol rate/Area] mL/min/{1.73_m2} [facility] Comment on above: Order Comment: FASTI NG Y Performed By: #### H S TROP #### [facility] [address] Glucose [Mass/Vol] 144 mg/dL High 70-100 [facility] Comment on above: Order Comment: FASTI NG Y Result Comment: [place] Glucose Reference Range is dependent on time and content of last meal. Glucose of more than 200 mg/dL in a nonstressed, ambulatory subject supports the diagnosis of Diabetes Mellitus. ADA recommended reference range Performed By: #### H S TROP #### [facility] [address] Potassium [Moles/Vol] 4.4 mmol/L Normal 3.5-5.1 [facility] Comment on above: Order Comment: FASTI NG Y Performed By: #### H S TROP #### [facility] [address] [place] [address] [place] Sodium [Moles/Vol] 137 mmol/L Normal 136-145 [facility] Comment on above: Order Comment: FASTI NG Y Performed By: #### H S TROP #### [facility] [address] [place] [address] [place] Urea nitrogen [Mass/Vol] 22 mg/dL Normal 7-25 [facility] Comment on above: Order Comment: FASTI NG Y Performed By: #### H S TROP #### [facility] [address] [place] [address] [place] Basophils Auto (Bld) [#/Vol] Ordered By: Jesse Lombardo on 02-04-2023 Basophils (Bld) [#/Vol] 0.1 10*3/uL 0.0-0.2 [facility] Basophils/100 WBC Auto (Bld) Ordered By: Jesse Lombardo on 02-04-2023 Basophils/100 WBC (Bld) 0.7 % . [facility] Calcium [Mass/volume] in Ser um or PlasmaOrdered By: Jesse Lombardo on 02-04-2023 Calcium [Mass/Vol] 8.7 mg/dL 8.6-10.3 [facility] Carbon dioxide, total [Moles /volume] in Serum or PlasmaOrdered By: Jesse Lombardo on 02-04-2023 CO2 [Moles/Vol] 30.1 mmol/L 21.0-31.0 [facility] Chloride [Moles/volume] in S patric or PlasmaOrdered By: Jesse Lombardo on 02-04-2023 Chloride [Moles/Vol] 102 mmol/L 98-107 [facility] Cholesterol [Mass/volume] in Serum or PlasmaOrdered By: Jesse Lombardo on 02-04-2023 Cholesterol [Mass/Vol] 208 mg/dL 140-200 [facility] Comment on above: Chol less than 200 m g/dl low riskChol 201-239 mg/dl borderline riskChol 240 mg/dl and greater high risk Cholesterol in LDL Calc [Mas s/Vol]Ordered By: Jesse Lombardo on 02-04-2023 Cholesterol in LDL [Mass/Vol] 115 mg/dL 0-100 [facility] Comment on above: LDL ATP III CLASSIFI CATIONLDL less than 100 mg/dL OptimalLDL 100-129 mg/dL Near or above optimalLDL 130-159 mg/dL Borderline highLDL 160-189 mg/dL HighLDL greater than 189 mg/dL Very high Cholesterol in VLDL Calc [Ma ss/Vol]Ordered By: Jesse Lombardo on 02-04-2023 Cholesterol in VLDL [Mass/Vol] 55 mg/dL [facility] Complete Blood Count Auto Di ffon 02-04-2023 Basophils (Bld) [#/Vol] 0.1 10*3/uL Normal 0.0-0.2 [facility] Comment on above: Result Comment: PERF ORMED BY: [facility] [address] [place] [address] PATHOLOGIST BUILDING TRADES INSTRUCTOR AMOR GREGORY M.D. Performed By: #### H S TROP #### [address] Basophils/100 WBC (Bld) 0.7 % Normal . [facility] Comment on above: Performed By: #### H S TROP #### [address] Eosinophils (Bld) [#/Vol] 0.4 10*3/uL Normal 0.0-0.45 [facility] Comment on above: Performed By: #### H S TROP #### [address] Eosinophils/100 WBC (Bld) 4.3 % Normal . [facility] Comment on above: Performed By: #### H S TROP #### [address] Erythrocyte distribution width (RBC) [Ratio] 16.8 % High 11.9-15.3 [facility] Comment on above: Performed By: #### H S TROP #### [address] Hematocrit (Bld) [Volume fraction] 41.6 % Normal 34.0-46.4 [facility] Comment on above: Performed By: #### H S TROP #### [place] [address] [place] Hemoglobin (Bld) [Mass/Vol] 13.6 g/dL Normal 11.8-15.4 [facility] Comment on above: Performed By: #### H S TROP #### [place] [address] [place] Lymphocytes (Bld) [#/Vol] 2.3 10*3/uL Normal 1.00-4.8 [facility] Comment on above: Performed By: #### H S TROP #### [place] [address] [place] Lymphocytes/100 WBC (Bld) 23.8 % Normal . [facility] Comment on above: Performed By: #### H S TROP #### [address] MCH (RBC) [Entitic mass] 28.4 pg Normal 24.7-34.3 [facility] Comment on above: Performed By: #### H S TROP #### [address] MCV (RBC) [Entitic vol] 86.6 fL Normal 80-100 [facility] Comment on above: Performed By: #### H S TROP #### [address] Mean Corpuscular HGB Conc 32.8 g/dL Normal 32.0-35.0 [facility] Comment on above: Performed By: #### H S TROP #### [address] Monocytes (Bld) [#/Vol] 0.7 10*3/uL Normal 0.0-0.8 [facility] Comment on above: Performed By: #### H S TROP #### [place] [address] [place] Monocytes/100 WBC (Bld) 7.0 % Normal . [facility] Comment on above: Performed By: #### H S TROP #### [address] Neutrophils (Bld) [#/Vol] 6.3 10*3/uL Normal 1.8-7.7 [facility] Comment on above: Performed By: #### H S TROP #### [place] [address] [place] Neutrophils/100 WBC (Bld) 64.2 % Normal . [facility] Comment on above: Performed By: #### H S TROP #### [address] NRBC% 0.1 /100{WBC} Normal 0-0.5 [facility] Comment on above: Performed By: #### H S TROP #### [address] [place] [address] [place] Platelet mean volume (Bld) [Entitic vol] 10.3 fL Normal 6.3-10.7 [facility] Comment on above: Performed By: #### H S TROP #### [facility] [address] [place] [id number] [place] Platelets (Bld) [#/Vol] 203 10*3/uL Normal 150-450 [facility] Comment on above: Performed By: #### H S TROP #### [facility] [address] [place] [address] [place] RBC (Bld) [#/Vol] 4.80 10*6/uL Normal 3.60-5.00 [facility] Comment on above: Performed By: #### H S TROP #### [place] [id number] [place] WBC (Bld) [#/Vol] 9.8 10*3/uL Normal 3.8-11.6 [facility] Comment on above: Performed By: #### H S TROP #### [place] [id number] [facility] Creatinine [Mass/volume] in Serum or PlasmaOrdered By: Jesse Lombardo on 02-04-2023 Creatinine [Mass/Vol] 0.99 mg/dL 0.60-1.20 [facility] ECG 12 lead ECGon 02-04-2023 ECG 12 lead ECG [facility] Main [place] [address] [place] [address] Electrocardiograph Report Signed Patient: Francisca Kumar MR#: [id number] : 1960 Acct:[id number] Age/Sex: 63 / F ADM Date: 02/03/23 Loc: Room: [address] [place] [address] Type: ADM IN Attending Dr: Jesse Lombardo [...] previous ECGs available Confirmed by TRISTA ERICKSON [id number] on 02/04/2023 11:59:39 AM Referred By: Electronically Signed By:VARSHA WESTON MD [facility] Transcribed By: MUS Signed By Jeremiah Weston MD 02/04/23 1159 Normal [facility] echo transthoracicon [facility] echo transthoracic [facility] Main [place] [address] [place] [address] Echocardiogram Signed Patient: Francisca Kumar MR#: [id number] : 1960 Acct:[id number] Age/Sex: 63 / F ADM Date: 02/03/23 Loc: Room: [address] [place] [address] Type: ADM IN Attending Dr: Jesse Lombardo DO Ordering Provider: Jesse Lombardo DO Date of Service: 02/04/23 [facility] echo transthoracic: post STEMI Copies to: Chantale Charles MD, [facility] Jesse Lombardo DO Weight: 419 lb Performed By: BARNEY Schaeffer BSA: 2.8 m2 BP: 147/65 mmHg HR: 61 Reason For Study: post STEMI History: CHF, CAD, RI, Cardiac stent, Hypertension Interpretation Summary Mild concentric [...] At: 02/04/23921 Signed By: Chantale Charles MD, [facility] 02/04/23 1513 Normal [facility] Eosinophils Auto (Bld) [#/Vo l]Ordered By: Jesse Lombardo on 02-04-2023 Eosinophils (Bld) [#/Vol] 0.4 10*3/uL 0.0-0.45 [facility] Eosinophils/100 WBC Auto (Bl d)Ordered By: Jesse Lombardo on 02-04-2023 Eosinophils/100 WBC (Bld) 4.3 % . [facility] Erythrocyte distribution wid th Auto (RBC) [Ratio]Ordered By: Jesse Lombardo on 02-04-2023 Erythrocyte distribution width (RBC) [Ratio] 16.8 % 11.9-15.3 [facility] Glucose [Mass/volume] in Ser um or PlasmaOrdered By: Jesse Lombardo on 02-04-2023 Glucose [Mass/Vol] 144 mg/dL 70-100 [facility] Comment on above: ADA recommended refe rence rangeRandom Glucose Reference Range is dependent on time and content of last meal. Glucose of more than 200 mg/dL in a nonstressed, ambulatory subject supports the diagnosis of Diabetes Mellitus. Hematocrit Auto (Bld) [Volum e fraction]Ordered By: Jesse Lombardo on 02-04-2023 Hematocrit (Bld) [Volume fraction] 41.6 % 34.0-46.4 [facility] Hemoglobin [Mass/volume] in BloodOrdered By: Jesse Lombardo on 02-04-2023 Hemoglobin (Bld) [Mass/Vol] 13.6 g/dL 11.8-15.4 [facility] Leukocytes [#/volume] correc frida for nucleated erythrocytes in Blood by Automated counOrdered By: Jesse Lombardo on 02-04-2023 WBC corrected for nucl RBC Auto (Bld) [#/Vol] 9.8 10*3/uL 3.8-11.6 [facility] Lipid Panelon 02-04-2023 Cholesterol [Mass/Vol] 208 mg/dL High 140-200 [facility] Comment on above: Order Comment: FASTI NG Y Result Comment: Chol less than 200 mg/dl low risk Chol 201-239 mg/dl borderline risk Chol 240 mg/dl and greater high risk Performed By: #### H S TROP #### [facility] [address] Cholesterol in HDL [Mass/Vol] 38 mg/dL Normal 23-92 [facility] Comment on above: Order Comment: IRINEO NG Y Result Comment: HDL CHOL ATP-III CLASSIFICATION Cardiovascular Risk HDL > or equal to 60 mg/dL LOW HDL < 40 mg/dL HIGH Performed By: #### H S TROP #### [facility] [address] Cholesterol.total/Chol esterol in HDL [Mass ratio] 5.5 {ratio} Normal <5.0 [facility] Comment on above: Order Comment: FASTI NG Y Result Comment: PERF ORMED BY: [facility] [address] [place] [address] PATHOLOGIST BUILDING TRADES INSTRUCTOR AMOR GREGORY M.D. Performed By: #### H S TROP #### [facility] [address] [place] [id number] [place] LDL Cholesterol,Calculated 115 mg/dL High 0-100 [facility] Comment on above: Order Comment: RADHAI NG Y Result Comment: LDL ATP III CLASSIFICATION LDL less than 100 mg/dL Optimal LDL 100-129 mg/dL Near or above optimal LDL 130-159 mg/dL Borderline high LDL 160-189 mg/dL High LDL greater than 189 mg/dL Very high Performed By: #### H S TROP #### [facility] [address] Triglyceride w/Reflex 277 mg/dL High 0-149 [facility] Comment on above: Order Comment: IRINEO Aly Result Comment: TRIG ATP III CLASSIFICATION TRIG less than 150 mg/dL Normal TRIG 150-199 mg/dL Borderline high TRIG 200-500 mg/dL High TRIG greater than 500 mg/dL Very high Standard traceable to the Center for Disease Conrtrol and Prevention (CDC) test method. Performed By: #### H S TROP #### [facility] [address] VLDL CHOLESTEROL 55 mg/dL Normal [facility] Comment on above: Order Comment: IRINEO STOVER Sheeba Performed By: #### H S TROP #### [facility] [address] Lymphocytes Auto (Bld) [#/Vo l]Ordered By: Jesse Lombardo on 02-04-2023 Lymphocytes (Bld) [#/Vol] 2.3 10*3/uL 1.00-4.8 [facility] Lymphocytes/100 WBC Auto (Bl d)Ordered By: Jesse Lombardo on 02-04-2023 Lymphocytes/100 WBC (Bld) 23.8 % . [facility] MCH Auto (RBC) [Entitic mass ]Ordered By: Jesse Lombardo on 02-04-2023 MCH (RBC) [Entitic mass] 28.4 pg 24.7-34.3 [facility] MCHC Auto (RBC) [Mass/Vol]Or dered By: Jesse Lombardo on 02-04-2023 MCHC (RBC) [Mass/Vol] 32.8 g/dL 32.0-35.0 [facility] MCV Auto (RBC) [Entitic vol] Ordered By: Jesse Lombardo on 02-04-2023 MCV (RBC) [Entitic vol] 86.6 fL 80-100 [facility] Monocytes Auto (Bld) [#/Vol] Ordered By: Jesse Lombardo on 02-04-2023 Monocytes (Bld) [#/Vol] 0.7 10*3/uL 0.0-0.8 [facility] Monocytes/100 WBC Auto (Bld) Ordered By: Jesse Lombardo on 02-04-2023 Monocytes/100 WBC (Bld) 7.0 % . [facility] Neutrophils Auto (Bld) [#/Vo l]Ordered By: Jesse Lombardo on 02-04-2023 Neutrophils (Bld) [#/Vol] 6.3 10*3/uL 1.8-7.7 [facility] Neutrophils/100 WBC Auto (Bl d)Ordered By: Jesse Lombardo on 02-04-2023 Neutrophils/100 WBC (Bld) 64.2 % . [facility] No Panel InformationOrdered By: Jesse Lombardo on 02-04-2023 Estimated GFR (CKD-EPI) > 60.0 mL/Min [facility] Creatinine Clearance (Chem 106.23 [facility] Nucleated erythrocytes [Pres ence] in Blood by Automated countOrdered By: Jesse Lombardo on 02-04-2023 Nucleated RBC Auto Ql (Bld) 0.1 /100{WBC} 0-0.5 [facility] Platelet mean volume Auto (B ld) [Entitic vol]Ordered By: Jesse Lombardo on 02-04-2023 Platelet mean volume (Bld) [Entitic vol] 10.3 fL 6.3-10.7 [facility] Platelets Auto (Bld) [#/Vol] Ordered By: Jesse Lombardo on 02-04-2023 Platelets (Bld) [#/Vol] 203 10*3/uL 150-450 [facility] Potassium [Moles/volume] in Serum or PlasmaOrdered By: Jesse Lombardo on 02-04-2023 Potassium [Moles/Vol] 4.4 mmol/L 3.5-5.1 [facility] RBC Auto (Bld) [#/Vol]Ordere d By: Jesse Lombardo on 02-04-2023 RBC (Bld) [#/Vol] 4.80 10*6/uL 3.60-5.00 [facility] Serum or plasma anion gap de terminationOrdered By: Jesse Lombardo on 02-04-2023 Anion gap [Moles/Vol] 9.3 mmol/L 6.0-15.0 [facility] Serum or plasma high density lipoprotein (HDL) cholesterol measurementOrdered By: Jesse Lombardo on 02-04-2023 Cholesterol in HDL [Mass/Vol] 38 mg/dL [facility] Comment on above: HDL CHOL ATP-III CLA SSIFICATION Cardiovascular RiskHDL > or equal to 60 mg/dL LOWHDL < 40 mg/dL HIGH Serum or plasma total choles terol/high density lipoprotein (HDL) cholesterol mass ratOrdered By: Jesse Lombardo on 02-04-2023 Cholesterol.total/Chol esterol in HDL [Mass ratio] 5.5 {ratio} <5.0 [facility] Sodium [Moles/volume] in Ser um or PlasmaOrdered By: Jesse Lombardo on 02-04-2023 Sodium [Moles/Vol] 137 mmol/L 136-145 [facility] Triglyceride [Mass/volume] i n Serum or PlasmaOrdered By: Jesse Lombardo on 02-04-2023 Triglyceride [Mass/Vol] 277 mg/dL 0-149 [facility] Comment on above: TRIG ATP III CLASSIF ICATIONTRIG less than 150 mg/dL NormalTRIG 150-199 mg/dL Borderline highTRIG 200-500 mg/dL High TRIG greater than 500 mg/dL Very highStandard traceable to the Center for Disease Conrtrol and Prevention (CDC) test method. Urea nitrogen [Mass/volume] in Serum or PlasmaOrdered By: Jesse Lombardo on 02-04-2023 Urea nitrogen [Mass/Vol] 22 mg/dL 02-02 [facility] WBC Auto (Bld) [#/Vol]Ordere d By: Jesse Lombardo on 02-04-2023 WBC (Bld) [#/Vol] 9.8 10*3/uL 3.8-11.6 [facility] Activated partial thrombopla stin time (aPTT) in platelet poor plasma by coagulation aOrdered By: Ru Johnson on 02-03-2023 aPTT Coag (PPP) [Time] 120.6 s 25.1-36.5 [facility] Comment on above: Results calledat 022 9 on 02/03/23 Alanine aminotransferase [En zymatic activity/volume] in Serum or PlasmaOrdered By: Ru Johnson on 02-03-2023 ALT [Catalytic activity/Vol] 23 U/L [facility] Albumin [Mass/volume] in Ser um or Plasma by Bromocresol green (BCG) dye binding methoOrdered By: Ru Johnson on 02-03-2023 Albumin BCG dye [Mass/Vol] 4.0 g/dL 3.5-5.7 [facility] Alkaline phosphatase [Enzyma tic activity/volume] in Serum or PlasmaOrdered By: Ru Johnson on 02-03-2023 ALP [Catalytic activity/Vol] 119 U/L 34-104 [facility] Aspartate aminotransferase [ Enzymatic activity/volume] in Serum or PlasmaOrdered By: Ru Johnson on 02-03-2023 AST [Catalytic activity/Vol] 18 U/L 13-39 [facility] B-Type Natriuretic Peptideon 02-03-2023 Natriuretic peptide B (Bld) [Mass/Vol] 142.0 pg/mL High 5-100 [facility] Comment on above: Result Comment: PERF ORMED BY: [facility] [address] [place] [address] PATHOLOGIST BUILDING [employer] INSTRUCTOR AMOR GREGORY M.D. Performed By: #### C BC, PTT, BNP, CMP, CK, PT, HS TROP #### [facility] [address] [place], [place] [id number] [facility] Bilirubin.total [Mass/volume ] in Serum or PlasmaOrdered By: Ru Johnson on 02-03-2023 Bilirubin [Mass/Vol] 0.3 mg/dL 0.3-1.0 [facility] Complete Blood Count Auto Di ffon 02-03-2023 Basophils (Bld) [#/Vol] 0.1 10*3/uL Normal 0.0-0.2 [facility] Comment on above: Result Comment: PERF ORMED BY: [facility] [address] [place] [address] PATHOLOGIST BUILDING [employer] INSTRUCTOR AMOR GREGORY M.D. Performed By: #### C BC, PTT, BNP, CMP, CK, PT, HS TROP #### [facility] [address] [place] [id number] [place] Basophils/100 WBC (Bld) 1.0 % Normal . [facility] Comment on above: Performed By: #### C BC, PTT, BNP, CMP, CK, PT, HS TROP #### [address] Eosinophils (Bld) [#/Vol] 0.3 10*3/uL Normal 0.0-0.45 [facility] Comment on above: Performed By: #### C BC, PTT, BNP, CMP, CK, PT, HS TROP #### [address] Eosinophils/100 WBC (Bld) 2.0 % Normal . [facility] Comment on above: Performed By: #### C BC, PTT, BNP, CMP, CK, PT, HS TROP #### [address] Erythrocyte distribution width (RBC) [Ratio] 16.6 % High 11.9-15.3 [facility] Comment on above: Performed By: #### C BC, PTT, BNP, CMP, CK, PT, HS TROP #### [address] Hematocrit (Bld) [Volume fraction] 45.2 % Normal 34.0-46.4 [facility] Comment on above: Performed By: #### C BC, PTT, BNP, CMP, CK, PT, HS TROP #### [address] Hemoglobin (Bld) [Mass/Vol] 15.1 g/dL Normal 11.8-15.4 [facility] Comment on above: Performed By: #### C BC, PTT, BNP, CMP, CK, PT, HS TROP #### [address] Lymphocytes (Bld) [#/Vol] 2.0 10*3/uL Normal 1.00-4.8 [facility] Comment on above: Performed By: #### C BC, PTT, BNP, CMP, CK, PT, HS TROP #### [address] Lymphocytes/100 WBC (Bld) 15.2 % Normal . [facility] Comment on above: Performed By: #### C BC, PTT, BNP, CMP, CK, PT, HS TROP #### [address] MCH (RBC) [Entitic mass] 28.5 pg Normal 24.7-34.3 [facility] Comment on above: Performed By: #### C BC, PTT, BNP, CMP, CK, PT, HS TROP #### [address] MCV (RBC) [Entitic vol] 85.2 fL Normal 80-100 [facility] Comment on above: Performed By: #### C BC, PTT, BNP, CMP, CK, PT, HS TROP #### [address] Mean Corpuscular HGB Conc 33.4 g/dL Normal 32.0-35.0 [facility] Comment on above: Performed By: #### C BC, PTT, BNP, CMP, CK, PT, HS TROP #### [address] Monocytes (Bld) [#/Vol] 0.6 10*3/uL Normal 0.0-0.8 [facility] Comment on above: Performed By: #### C BC, PTT, BNP, CMP, CK, PT, HS TROP #### [address] Monocytes/100 WBC (Bld) 4.3 % Normal . [facility] Comment on above: Performed By: #### C BC, PTT, BNP, CMP, CK, PT, HS TROP #### [address] Neutrophils (Bld) [#/Vol] 10.1 10*3/uL High 1.8-7.7 [facility] Comment on above: Performed By: #### C BC, PTT, BNP, CMP, CK, PT, HS TROP #### [address] Neutrophils/100 WBC (Bld) 77.5 % Normal . [facility] Comment on above: Performed By: #### C BC, PTT, BNP, CMP, CK, PT, HS TROP #### [address] NRBC% 0.1 /100{WBC} Normal 0-0.5 [facility] Comment on above: Performed By: #### C BC, PTT, BNP, CMP, CK, PT, HS TROP #### [address] Platelet mean volume (Bld) [Entitic vol] 9.9 fL Normal 6.3-10.7 [facility] Comment on above: Performed By: #### C BC, PTT, BNP, CMP, CK, PT, HS TROP #### [address] Platelets (Bld) [#/Vol] 207 10*3/uL Normal 150-450 [facility] Comment on above: Performed By: #### C BC, PTT, BNP, CMP, CK, PT, HS TROP #### [address] RBC (Bld) [#/Vol] 5.30 10*6/uL High 3.60-5.00 [facility] Comment on above: Performed By: #### C BC, PTT, BNP, CMP, CK, PT, HS TROP #### [address] WBC (Bld) [#/Vol] 13.1 10*3/uL High 3.8-11.6 [facility] Comment on above: Performed By: #### C BC, PTT, BNP, CMP, CK, PT, HS TROP #### [address] Comprehensive Metabolic Pane abdiaziz 02-03-2023 Albumin [Mass/Vol] 4.0 g/dL Normal 3.5-5.7 [facility] Comment on above: Performed By: #### C BC, PTT, BNP, CMP, CK, PT, HS TROP #### [address] [address] [place] Albumin/Globulin [Mass ratio] 1.3 {ratio} Normal [facility] Comment on above: Performed By: #### C BC, PTT, BNP, CMP, CK, PT, HS TROP #### [facility] [address] ALP [Catalytic activity/Vol] 119 U/L High 34-104 [facility] Comment on above: Performed By: #### C BC, PTT, BNP, CMP, CK, PT, HS TROP #### [facility] [address] ALT [Catalytic activity/Vol] 23 U/L Normal 7-52 [facility] Comment on above: Performed By: #### C BC, PTT, BNP, CMP, CK, PT, HS TROP #### [address] Anion gap [Moles/Vol] Not performed Normal 6.0-15.0 [facility] Comment on above: Performed By: #### C BC, PTT, BNP, CMP, CK, PT, HS TROP #### [address] AST [Catalytic activity/Vol] 18 U/L Normal 13-39 [facility] Comment on above: Performed By: #### C BC, PTT, BNP, CMP, CK, PT, HS TROP #### [address] Bilirubin [Mass/Vol] 0.3 mg/dL Normal 0.3-1.0 [facility] Comment on above: Performed By: #### C BC, PTT, BNP, CMP, CK, PT, HS TROP #### [address] Calcium [Mass/Vol] 9.0 mg/dL Normal 8.6-10.3 [facility] Comment on above: Performed By: #### C BC, PTT, BNP, CMP, CK, PT, HS TROP #### [address] Chloride [Moles/Vol] 104 mmol/L Normal 98-107 [facility] Comment on above: Performed By: #### C BC, PTT, BNP, CMP, CK, PT, HS TROP #### [address] CO2 [Moles/Vol] 24.2 mmol/L Normal 21.0-31.0 [facility] Comment on above: Performed By: #### C BC, PTT, BNP, CMP, CK, PT, HS TROP #### [facility] [address] Creatinine [Mass/Vol] 1.11 mg/dL Normal 0.60-1.20 [facility] Comment on above: Performed By: #### C BC, PTT, BNP, CMP, CK, PT, HS TROP #### [address] Creatinine Clr Calc Pharmacy 94.17 [facility] Comment on above: Result Comment: PERF ORMED BY: [place] [address] PATHOLOGIST BUILDING [employer] INSTRUCTOR AMOR GREGORY M.D. Performed By: #### C BC, PTT, BNP, CMP, CK, PT, HS TROP #### [address] GFR/1.73 sq M.predicted MDRD (S/P/Bld) [Vol rate/Area] 56.551 mL/min/{1.73_m2} [facility] Comment on above: Performed By: #### C BC, PTT, BNP, CMP, CK, PT, HS TROP #### [facility] [address] Globulin (S) [Mass/Vol] 3.2 g/dL [facility] Comment on above: Performed By: #### C BC, PTT, BNP, CMP, CK, PT, HS TROP #### [facility] [address] Glucose [Mass/Vol] 164 mg/dL High 70-100 [facility] Comment on above: Result Comment: [facility] Glucose Reference Range is dependent on time and content of last meal. Glucose of more than 200 mg/dL in a nonstressed, ambulatory subject supports the diagnosis of Diabetes Mellitus. ADA recommended reference range Performed By: #### C BC, PTT, BNP, CMP, CK, PT, HS TROP #### [facility] [address] Potassium Normal 3.5-5.1 [facility] Comment on above: Result Comment: Spec imen hemolyzed, redraw requested Results called at 0213 on 02/03/23 Performed By: #### C BC, PTT, BNP, CMP, CK, PT, HS TROP #### [address] Protein [Mass/Vol] 7.2 g/dL Normal 6.4-8.9 [facility] Comment on above: Performed By: #### C BC, PTT, BNP, CMP, CK, PT, HS TROP #### [address] Sodium [Moles/Vol] 138 mmol/L Normal 136-145 [facility] Comment on above: Performed By: #### C BC, PTT, BNP, CMP, CK, PT, HS TROP #### [address] Urea nitrogen [Mass/Vol] 27 mg/dL High 7-25 [facility] Comment on above: Performed By: #### C BC, PTT, BNP, CMP, CK, PT, HS TROP #### [place] [address] [place] Creatine Kinaseon 02-03-2023 CK [Catalytic activity/Vol] 51 U/L Normal [facility] Comment on above: Performed By: #### C BC, PTT, BNP, CMP, CK, PT, HS TROP #### [place] [address] [place] Creatine kinase [Enzymatic a ctivity/volume] in Serum or PlasmaOrdered By: Ru Johnson on 02-03-2023 CK [Catalytic activity/Vol] 51 U/L [facility] ECG 12 lead ECGon 02-03-2023 ECG 12 lead ECG [facility] [place] [address] [place] [address] Electrocardiograph Report Signed Patient: Francisca Kumar MR#: [id number] : 1960 Acct:[id number] Age/Sex: 63 / F ADM Date: 02/03/23 Loc: Room: Type: [facility] Attending Dr: Jesse Lombardo DO Ordering Provider: [...] consider inferolateral injury or acute infarct ACUTE RI / STEMI Consider right ventricular involvement in acute inferior infarct Abnormal ECG No previous ECGs available Confirmed by RU JOHNSON MD ([id number]) on 02/03/2023 2:55:57 AM Referred By: Electronically Signed By:RU JOHNSON MD Transcribed By: MUS Signed By Ru Johnson Jr, MD 0256 Normal [facility] Globulin Calc (S) [Mass/Vol] Ordered By: Ru Johnson on 02-03-2023 Globulin (S) [Mass/Vol] 3.2 g/dL [facility] Laboratory - CoagulationOrde red By: Ru Johnson on 02-03-2023 PT Coag (PPP) [Time] 10.3 s 9.0-12.9 [facility] Natriuretic peptide B [Mass/ Vol]Ordered By: Ru Johnson on 02-03-2023 Natriuretic peptide B (Bld) [Mass/Vol] 142.0 pg/mL 5-100 [facility] Partial Thromboplastin Timeo n 02-03-2023 aPTT Coag (Bld) [Time] 120.6 s Off scale high 25.1-36.5 [facility] Comment on above: Result Comment: Resu lts called at 0229 on 02/03/23 PERFORMED BY: [place] [address] PATHOLOGIST BUILDING [employer] INSTRUCTOR AMOR GREGORY M.D. Performed By: #### H S TROP #### [facility] [address] [place] [address] Platelet poor plasma interna tional normalized ratio (INR) by coagulation assay (relatOrdered By: Ru Johnson on 02-03-2023 INR Coag (PPP) [Relative time] 0.9 {INR} [facility] Comment on above: INR Therapeutic Rang e [...] on 02-03-2023 Protein [Mass/Vol] 7.2 g/dL 6.4-8.9 [facility] Prothrombin Time INRon 02-03 INR Coag (PPP) [Relative time] 0.9 {INR} Normal [facility] Comment on above: Result Comment: INR Therapeutic [...] BNP, CMP, CK, PT, HS TROP #### [facility] [address] [place] [address] PT Coag (PPP) [Time] 10.3 s Normal 9.0-12.9 [facility] Comment on above: Performed By: #### C BC, PTT, BNP, CMP, CK, PT, HS TROP #### [facility] [address] [place] [address] Redraw Potassiumon 3 Potassium [Moles/Vol] 3.9 mmol/L Normal 3.5-5.1 [facility] Comment on above: Order Comment: this redraw -[facility] 0834 Result Comment: PERF ORMED BY: [place] [address] PATHOLOGIST BUILDING [employer]AD[employer] INSTRUCTOR AMOR GREGORY M.D. Performed By: #### R EDRAW K #### [address] Redraw Potassium Normal 3.5-5.1 [facility] Comment on above: Result Comment: Spec imen hemolyzed, redraw requested PERFORMED BY: [place] [address] PATHOLOGIST BUILDING [employer]AD[employer] INSTRUCTOR AMOR GREGORY M.D. Performed By: #### H S TROP #### [address] Serum or plasma albumin/glob ulin mass ratioOrdered By: Ru Johnson on 02-03-2023 Albumin/Globulin [Mass ratio] 1.3 {ratio} [facility] Troponin I High Sensitivityo n 02-03-2023 Troponin I High Sensitivity 01336.0 pg/mL Off scale high 0.0-15.0 [facility] Comment on above: Result Comment: Crit ical Result I_TnIHS_d:92103.0 Called to and read back by: NASIR RUCKER at: 02/03/2023 19:39:12 by:[id number] PERFORMED BY: [place] [address] PATHOLOGIST BUILDING TRADES INSTRUCTOR AMOR GREGORY M.D. Performed By: #### H S TROP #### [facility] [address] [place], [place] [id number] [facility] Troponin I High Sensitivity 36887.0 pg/mL Off scale high 0.0-15.0 [facility] Comment on above: Result Comment: Crit ical Result I_TnIHS_d:03980.0 Called to and read back by: SHASHI CASSIDY at: 02/03/2023 16:52:21 by:[id number] PERFORMED BY: [place] [id number] PATHOLOGIST BUILDING [employer]AD[employer] INSTRUCTOR AMOR GREGORY M.D. Performed By: #### H S TROP #### [place] [address] [place] Troponin I High Sensitivity 00379.5 pg/mL Off scale high 0.0-15.0 [facility] Comment on above: Result Comment: Crit ical Result I_TnIHS_d:61734.5 Called to and read back by: CHARY SAWYER at: 02/03/2023 13:42:23 by:[id number] PERFORMED BY: [place] [id number] PATHOLOGIST BUILDING [employer] INSTRUCTOR AMOR GREGORY M.D. Performed By: #### H S TROP #### [place] [address] [place] Troponin I High Sensitivity 99858.3 pg/mL Off scale high 0.0-15.0 [facility] Comment on above: Result Comment: Crit ical Result I_TnIHS_d:49049.3 Called to and read back by: CHARY SAWYER at: 02/03/2023 11:01:44 by:[id number] PERFORMED BY: [place] [id number] PATHOLOGIST BUILDING TRAD[employer] INSTRUCTOR AMOR GREGORY M.D. Performed By: #### H S TROP #### [place] [address] [place] Troponin I High Sensitivity 71.2 pg/mL Off scale high 0.0-15.0 [facility] Comment on above: Result Comment: Crit ical Result : Called to and read back by: ODILON WILLIS at: 02/03/2023 02:27:28 by:[id number] PERFORMED BY: [address] [place] [address] PATHOLOGIST BUILDING [employer] INSTRUCTOR AMOR GREGORY M.D. Performed By: #### C BC, PTT, BNP, CMP, CK, PT, HS TROP #### [facility] [address] Troponin I.cardiac [Mass/vol ume] in Serum or Plasma by Detection limit <= 0.01 ng/Ordered By: Jesse Lombardo on 02-03-2023 Troponin I.cardiac DL <= 0.01 ng/mL [Mass/Vol] 38863.0 pg/mL 0.0-15.0 [facility] Comment on above: Critical Result I_Tn IHS_d:77364.0 Called to and read back by: NASIR RUCKER at: 02/03/2023 19:39:12 by:[id number] BNPon 09-29-2021 Natriuretic peptide B (Bld) [Mass/Vol] 247.0 pg/mL Normal <=900.0 [facility] Comment on above: Performed By: #### B SPEAR FISHER, CMP, HSTROPN #### [facility] [address] [place] [address] Dr. Lawrence Baltazar CBC AUTO DIFFon 09-29-2021 BASO # 0.1 103/ul Normal 0.0-0.1 [facility] Comment on above: Performed By: #### C BC #### [facility] [address] [place] [address] Dr. Lawrence Baltazar Basophils/100 WBC (Bld) 1.1 % Normal 0.2-2.0 [facility] Comment on above: Performed By: #### C BC #### [facility] [address] [place] [address] Dr. Lawrence Baltazar EO # 0.2 103/ul Normal 0.0-0.7 [facility] Comment on above: Performed By: #### C BC #### [facility] [address] [place] [address] Dr. Lawrence Baltazar Eosinophils/100 WBC (Bld) 2.6 % Normal 0.9-7.0 [facility] Comment on above: Performed By: #### C BC #### [facility] [address] [place] [address] Dr. Lawrence Baltazar Erythrocyte distribution width (RBC) [Ratio] 18.2 % Critically high 11.0-15.0 [facility] Comment on above: Performed By: #### C BC #### [facility] [address] [place] [address] Dr. Lawrence Baltazar Hematocrit (Bld) [Volume fraction] 50.5 % Critically high 36.0-48.0 [facility] Comment on above: Performed By: #### C BC #### [facility] [address] [place] [address] Dr. Lawrence Baltazar Hemoglobin (Bld) [Mass/Vol] 15.7 g/dL Normal 12.0-16.0 [facility] Comment on above: Performed By: #### C BC #### [facility] [address] [place] [address] Dr. Lawrence Baltazar IG # 0.05 10e3/ul Critically high 0.00-0.03 [facility] Comment on above: Performed By: #### C BC #### [facility] [address] [place] [address] Dr. Lawrence Baltazar IG % 0.5 % Normal 0.0-0.5 [facility] Comment on above: Performed By: #### C BC #### [facility] [address] [place] [address] Dr. Lawrence Baltazar LYMPH # 1.8 103/ul Normal 1.2-3.8 [facility] Comment on above: Performed By: #### C BC #### [facility] [address] [place] [address] Dr. Lawrence Baltazar Lymphocytes/100 WBC (Bld) 19.8 % Critically low 20.5-60.0 [facility] Comment on above: Performed By: #### C BC #### [facility] [address] [place] [address] Dr. Lawrence Baltazar MANUAL DIFF REQ NO Normal [facility] Comment on above: Performed By: #### C BC #### [facility] [address] [address] [address] Lawrence Baltazar MCH (RBC) [Entitic mass] 27.0 pg Normal 26.7-34.0 [facility] Comment on above: Performed By: #### C BC #### [facility] [address] [place] [address] Dr. Lawrence Baltazar MCHC (RBC) [Mass/Vol] 31.1 g/dL Normal 29.9-35.2 [facility] Comment on above: Performed By: #### C BC #### [facility] [address] [place] [address] Dr. Lawrence Baltazar MCV (RBC) [Entitic vol] 86.8 fL Normal 81.0-99.0 [facility] Comment on above: Performed By: #### C BC #### [facility] [address] [place] [address] Dr. Lawrence Baltazar MONO # 0.6 103/ul Normal 0.3-0.8 [facility] Comment on above: Performed By: #### C BC #### [facility] [address] [place] [address] Dr. Lawrence Baltazar Monocytes/100 WBC (Bld) 7.0 % Normal 1.7-12.0 [facility] Comment on above: Performed By: #### C BC #### [facility] [address] [place] [address] Dr. Lawrence Baltazar NEUT # 6.3 103/ul Normal 1.4-6.5 [facility] Comment on above: Performed By: #### C BC #### [facility] [address] [place] [address] Dr. Lawrence Baltazar Neutrophils/100 WBC (Bld) 69.0 % Normal 43.0-75.0 [facility] Comment on above: Performed By: #### C BC #### [facility] [address] [place] [address] Dr. Lawrence Baltazar Platelet mean volume (Bld) [Entitic vol] 11.4 fL Normal 9.5-13.5 [facility] Comment on above: Performed By: #### C BC #### [facility] [address] [address] [address] Lawrence Baltazar PLT 225 103/ul Normal 150-450 [facility] Comment on above: Performed By: #### C BC #### [facility] [address] [place] [address] Dr. Lawrence Baltazar RBC 5.82 106/ul Critically high 4.20-5.40 [facility] Comment on above: Performed By: #### C BC #### [facility] [address] [place] [address] Dr. Lawrence Baltazar WBC 9.2 103/ul Normal 4.0-11.0 [facility] Comment on above: Performed By: #### C BC #### [facility] [address] [place] [address] Dr. Lawrence Baltazar PROF 14(COMP METB)on 022 Albumin [Mass/Vol] 3.5 g/dL Normal 3.4-5.0 [facility] Comment on above: Performed By: #### B SPEAR FISHER, CMP, HSTROPN #### [facility] [address] [place] [address] Dr. Lawrence Baltazar Albumin/Globulin [Mass ratio] 0.9 {ratio} Normal [facility] Comment on above: Performed By: #### B SPEAR FISHER, CMP, HSTROPN #### [facility] [address] [place] [address] Dr. Lawrence Baltazar ALP [Catalytic activity/Vol] 139 U/L Critically high 46-116 [facility] Comment on above: Performed By: #### B SPEAR FISHER, CMP, HSTROPN #### [facility] [address] [place] [address] Dr. Lawrence Baltazar ALT [Catalytic activity/Vol] 26 U/L Normal 14-59 [facility] Comment on above: Performed By: #### B SPEAR FISHER, CMP, HSTROPN #### [facility] [address] [place] [address] Dr. Lawrence Baltazar Anion gap [Moles/Vol] 9.2 mmol/L Normal [facility] Comment on above: Performed By: #### B SPEAR FISHER, CMP, HSTROPN #### [facility] [address] [place] [address] Dr. Lawrence Baltazar AST [Catalytic activity/Vol] 12 U/L Critically low 15-37 [facility] Comment on above: Performed By: #### B SPEAR FISHER, CMP, HSTROPN #### [facility] [address] [place] [address] Dr. Lawrence Baltazar Bilirubin [Mass/Vol] 0.4 mg/dL Normal 0.2-1.3 [facility] Comment on above: Performed By: #### B SPEAR FISHER, CMP, HSTROPN #### [facility] [address] [place] [address] Dr. Lawrence Baltazar Calcium [Mass/Vol] 8.8 mg/dL Normal 8.5-10.1 [facility] Comment on above: Performed By: #### B SPEAR FISHER, CMP, HSTROPN #### [facility] [address] [place] [address] Dr. Lawrence Baltazar Chloride [Moles/Vol] 102 mmol/L Normal 98-107 [facility] Comment on above: Performed By: #### B SPEAR FISHER, CMP, HSTROPN #### [facility] [address] [place] [address] Dr. Lawrence Baltazar CO2 [Moles/Vol] 31.6 mmol/L Critically high 22.0-30.0 [facility] Comment on above: Performed By: #### B SPEAR FISHER, CMP, HSTROPN #### [facility] [address] [place] [address] Dr. Lawrence Baltazar Creatinine [Mass/Vol] 0.93 mg/dL Normal 0.52-1.04 [facility] Comment on above: Performed By: #### B SPEAR FISHER, CMP, HSTROPN #### [facility] [address] [place] [address] Dr. Lawrence Baltazar EGFR-AF CROATIAN >60 Normal >=60 [facility] Comment on above: Performed By: #### B SPEAR FISHER, CMP, HSTROPN #### [facility] [address] [place] [address] Dr. Lawrence Baltazar EGFR-NON AF CROATIAN >60 Normal >=60 [facility] Comment on above: Performed By: #### B SPEAR FISHER, CMP, HSTROPN #### [facility] [address] [address] [address] Lawrence Baltazar Globulin (S) [Mass/Vol] 4.0 g/dL Normal [facility] Comment on above: Performed By: #### B SPEAR FISHER, CMP, HSTROPN #### [facility] [address] [address] [address] Lawrence Baltazar Glucose [Mass/Vol] 154 mg/dL Critically high 74-[address] [facility] Comment on above: Performed By: #### B SPEAR FISHER, CMP, HSTROPN #### [facility] [address] [address] [address] Lawrence Baltazar Potassium [Moles/Vol] 3.8 mmol/L Normal 3.4-5.0 [facility] Comment on above: Performed By: #### B SPEAR FISHER, CMP, HSTROPN #### [facility] [address] [address] [address] Lawrence Baltazar Protein [Mass/Vol] 7.5 g/dL Normal 6.1-8.2 [facility] Comment on above: Performed By: #### B SPEAR FISHER, CMP, HSTROPN #### [facility] [address] [address] [address] Lawrence Baltazar Sodium [Moles/Vol] 139 mmol/L Normal 137-145 [facility] Comment on above: Performed By: #### B SPEAR FISHER, CMP, HSTROPN #### [facility] [address] [address] [address] Lawrence Baltazar Urea nitrogen [Mass/Vol] 19.0 mg/dL Critically high 7.0-18.0 [facility] Comment on above: Performed By: #### B SPEAR FISHER, CMP, HSTROPN #### [facility] [address] [address] [address] Lawrence Baltazar Urea nitrogen/Creatinine [Mass ratio] 20.4 mg/mg Normal [facility] Comment on above: Performed By: #### B SPEAR FISHER, CMP, HSTROPN #### [facility] [address] [place], [place] [address] Dr. Lawrence Baltazar TROPONIN, HIGH SENSITIVITYon 09-29-2021 HSTROP 11.4 pg/mL Normal 4.0-35.5 [facility] Comment on above: Result Comment: CUT- OFF POINTS HAVE BEEN ESTABLISHED BASED ON THE FOURTH UNIVERSAL DEFINITIONS OF MYOCARDIAL INFARCTION. THE UPPER REFERENCE LIMIT (URL) OF TROPONIN, DEFINED THE 99TH PERCENTILE OF cTnI DISTRIBUTION IN A REFERENCE POPULATION, HAS BEEN CONFIRMED THE DECISION THRESHOLD FOR RI DIAGNOSIS. Performed By: #### B SPEAR FISHER, CMP, HSTROPN #### [facility] [id number] Lawrence Baltazar XR CHEST 1 Von [...] MAYCOL SAID Date: 2021-09-29 05:32 Normal [facility] Covid-19 PCR (CVDTB)on 06-12 SARS-CoV-2 (COVID-19) RNA MAUREEN+probe Ql (Unsp spec) Not detected Normal NOT DETECTED [facility] Comment on above: Result Comment: This test is not yet approved or cleared by the [place] FDA. When there are no FDA-approved or cleared tests available, and other criteria are met, FDA can make tests available under an emergency access mechanism called an Emergency Use Authorization (EUA). The EUA for this test is supported by the [place] Worker of Health and Human Service's (HHS's) declaration [...] SARS-CoV-2. Performed By: #### C VDTB #### [facility] [address] [place] [address] Dr. Lawrence Baltazar Operative Reporton 1 Operative Report MR#: [id number] [facility] Pt. Name: Francisca Kumar Room #: [...] Quigley MD Date Trans: 03/25/2021 11:30 Toribio/wale [id number] cc: Michelle Black D.O. [facility] [place][note 2] WAbbie Richards [facility] [address] [facility] [address] Normal [facility] POC GLUCOSE LABon 03-25-2021 Glucose [Mass/Vol] 133 mg/dL High 70-100 [facility] Comment on above: Performed By: #### 8 [id number] #### [facility] [address] [place] [address], [facility] *MRSA/MSSA DNA NASALon 03-12 *MRSA/MSSA DNA NASAL Clinical Report: (D ) Specimen: NASAL SWAB Collected: 03/12/2021 10:20 Status: Final Last Updated: 03/12/2021 17:42 MSSA DNA (Final) Negative MRSA DNA (Final) Methicillin Resistant Staphylococcus aureus DNA Detected Normal [facility] Comment on above: Performed By: #### 3 1595 #### [facility] [address] [place] [address], [facility] APTTon 03-12-2021 aPTT Coag (Bld) [Time] 31.8 s Normal 25.0-35.0 [facility] Comment on above: Result Comment: ALL [...] THIS PURPOSE. Performed By: #### 5 7307, [id number] #### [facility] [address] [place] [address], [facility] BASIC METABOLIC PANELon Calcium [Mass/Vol] 9.2 mg/dL Normal 8.6-10.3 [facility] Comment on above: Performed By: #### 0 0071 #### [facility] [address] [place] [address], [facility] Chloride [Moles/Vol] 104 mmol/L Normal 98-107 [facility] Comment on above: Performed By: #### 0 0071 #### [facility] [address] [place] [address], [facility] CO2 [Moles/Vol] 27 mmol/L Normal 21-31 [facility] Comment on above: Performed By: #### 0 0071 #### [facility] [address] [place] [address], [place] Creatinine [Mass/Vol] 0.91 mg/dL Normal 0.60-1.20 [facility] Comment on above: Performed By: #### 0 0071 #### [facility] [address] [place] [address], [place] GFR/1.73 sq M.predicted among blacks MDRD (S/P/Bld) [Vol rate/Area] mL/min/{1.73_m2} Normal >60 [facility] Comment on above: Performed By: #### 0 0071 #### [facility] [address] [place] [address], [place] GFR/1.73 sq M.predicted among non-blacks MDRD (S/P/Bld) [Vol rate/Area] mL/min/{1.73_m2} Normal >60 [facility] Comment on above: Performed By: #### 0 0071 #### [facility] [address] [place] [address], [place] Glucose [Mass/Vol] 131 mg/dL High 70-100 [facility] Comment on above: Performed By: #### 0 0071 #### [facility] [address] [place] [address], [place] Potassium [Moles/Vol] 4.0 mmol/L Normal 3.5-5.1 [facility] Comment on above: Performed By: #### 0 0071 #### [facility] [address] [place] [address], [place] Sodium [Moles/Vol] 139 mmol/L Normal 136-145 [facility] Comment on above: Performed By: #### 0 0071 #### [facility] [address] [place] [address], [place] Urea nitrogen [Mass/Vol] 16 mg/dL Normal 7-25 [facility] Comment on above: Performed By: #### 0 0071 #### [facility] [address] [place] [address], [facility] CBC W/DIFFon 03-12-2021 ABS IMM GRANS 0.1 10*3/uL Normal 0.0-0.2 [facility] Comment on above: Performed By: #### 5 0103 #### [facility] [address] [place] [address], [facility] ABS NEUTROPHILS 7.9 10*3/uL High 1.6-7.6 [facility] Comment on above: Performed By: #### 5 3 #### [facility] [address] [place] [address], [facility] Basophils (Bld) [#/Vol] 0.1 10*3/uL Normal 0.0-0.2 [facility] Comment on above: Performed By: #### 5 102 #### [facility] [address] [place] [address], [facility] Basophils/100 WBC (Bld) 0.5 % Normal 0.0-1.0 [facility] Comment on above: Performed By: #### 5 102 #### [facility] [address] [place] [address], [facility] Eosinophils (Bld) [#/Vol] 0.3 10*3/uL Normal 0.0-0.5 [facility] Comment on above: Performed By: #### 5 010 #### [facility] [address] [place] [address], [facility] Eosinophils/100 WBC (Bld) 2.3 % Normal 0.0-6.0 [facility] Comment on above: Performed By: #### 5 102 #### [facility] [address] Erythrocyte distribution width (RBC) [Ratio] 17.2 % High 11.5-15.0 [facility] Comment on above: Performed By: #### 5 0103 #### [facility] [address] [facility] [address] Hematocrit (Bld) [Volume fraction] 49.1 % High 36.0-45.0 [facility] Comment on above: Performed By: #### 3 #### [facility] [address] [facility]. [address] Hemoglobin (Bld) [Mass/Vol] 15.3 g/dL High 12.0-15.0 [facility] Comment on above: Performed By: #### 3 #### [facility] [address] IMMATURE GRANS 0.5 % Normal 0.0-1.0 [facility] Comment on above: Performed By: #### 102 #### [facility] [address] Lymphocytes (Bld) [#/Vol] 2.2 10*3/uL Normal 1.2-4.0 [facility] Comment on above: Performed By: #### 3 #### [facility] [address] Lymphocytes/100 WBC (Bld) 19.4 % Low 20.0-45.0 [facility] Comment on above: Performed By: #### 5 3 #### [facility] [address] [facility]. [address] MCH (RBC) [Entitic mass] 26.8 pg Low 27.0-33.0 [facility] Comment on above: Performed By: #### 3 #### [facility] [address] MCHC (RBC) [Mass/Vol] 31.2 g/dL Low 32.0-35.0 [facility] Comment on above: Performed By: #### 3 #### [facility] [address] [facility] [place] [address], [facility] MCV (RBC) [Entitic vol] 86.0 fL Normal 82.0-98.0 [facility] Comment on above: Performed By: #### 0103 #### [facility] [address] [facility] [place] [address], [facility] Monocytes (Bld) [#/Vol] 0.7 10*3/uL Normal 0.1-1.0 [facility] Comment on above: Performed By: #### 3 #### [facility] [address] [place] [address], [facility] MONOS 5.9 % Normal 5.0-12.0 [facility] Comment on above: Performed By: #### 102 #### [facility] [address] [place] [address], [facility] Neutrophils/100 WBC (Bld) 71.4 % Normal 40.0-72.0 [facility] Comment on above: Performed By: #### 102 #### [facility] [address] [place] [address], [facility] Nucleated RBC/100 WBC (Bld) [Ratio] 0 % Normal 0-0 [facility] Comment on above: Performed By: #### 3 #### [facility] [address] [place] [address], [facility] PLAT CNT 239 10*3/uL Normal 150-400 [facility] Comment on above: Performed By: #### 3 #### [facility] [address] [place] [address], [facility] RBC (Bld) [#/Vol] 5.71 10*6/uL High 3.80-5.00 [facility] Comment on above: Performed By: #### 3 #### [facility] [address] WBC (Bld) [#/Vol] 11.10 10*3/uL High 4.00-10.60 [facility] Comment on above: Performed By: #### 5 0103 #### [facility] [address] PROTHROMBIN TIMEon 1 INR Coag (PPP) [Relative time] 1.00 {INR} Normal 0.91-1.16 [facility] Comment on above: Result Comment: ACCC [...] CHEST 1995;[id number]. Performed By: #### 5 7307, 13891 #### [facility] [address] PT Coag (PPP) [Time] 13.2 s Normal 12.3-14.8 [facility] Comment on above: Result Comment: ALL RESULTS MUST BE INTERPRETED WITH RESPECT TO BLOOD DRAWING ARTIFACT OR DILUTION ERROR OF ANTICOAGULANT AT THE TIME OF SAMPLING. Performed By: #### 5 7307, [id number] #### [facility] [address] Vital Signs Date Time Vital Sign Value Performing Clinician Facility 10-04-2023 15:14-0400 Body height 170.2 cm Milton Blake APRN-CLOTH CHECKER Work Phone: [facility] 10-04-2023 15:14-0400 Body mass index (BMI) [Ratio] 63.02 kg/m2 Milton Blake PUBLIC ADDRESS SYSTEM OPERATOR-CLOTH CHECKER Work Phone: [facility] 10-04-2023 15:14-0400 Body temperature 98.01 [degF] Milton Blake APRN-CLOTH CHECKER Work Phone: [facility] 10-04-2023 15:14-0400 Body weight 182.53 kg Milton Blake APRN-CLOTH CHECKER Work Phone: [facility] 10-04-2023 15:14-0400 Diastolic blood pressure 80 mm[Hg] Milton Blake PUBLIC ADDRESS SYSTEM OPERATOR-CLOTH CHECKER Work Phone: [facility] 10-04-2023 15:14-0400 Heart rate 80 /min Mitlon Blake APRN-CLOTH CHECKER Work Phone: [facility] 10-04-2023 15:14-0400 Respiratory rate 20 /min Milton Blake APRN-CLOTH CHECKER Work Phone: [facility] 10-04-2023 15:14-0400 SaO2% (BldA) [Mass fraction] 93 % Milton Blake APRN-CLOTH CHECKER Work Phone: [facility] 10-04-2023 15:14-0400 Systolic blood pressure 132 mm[Hg] Milton Blake PUBLIC ADDRESS SYSTEM OPERATOR-CLOTH CHECKER Work Phone: [facility] 08-10-2023 15:38-0500 Body height 170.2 cm Milton Blake APRN-CLOTH CHECKER Work Phone: [facility] 08-10-2023 15:38-0500 Body mass index (BMI) [Ratio] 59.89 kg/m2 Milton Blake PUBLIC ADDRESS SYSTEM OPERATOR-CLOTH CHECKER Work Phone: [facility] [employer] [facility] 08-10-2023 15:38-0500 Body temperature 97.9 [degF] Milton Blake APRN-CLOTH CHECKER Work Phone: [facility] [employer] 08-10-2023 15:38-0500 Body weight 173.46 kg Milton Blake APRN-PAZ Work Phone: [facility] [employer] [facility] 08-10-2023 15:38-0500 Diastolic blood pressure 80 mm[Hg] Milton Blake APRN-PAZ Work Phone: [facility] [employer] [facility] 08-10-2023 15:38-0500 Heart rate 74 /min Milton Blake APRN-PAZ Work Phone: [facility] [employer] [facility] 08-10-2023 15:38-0500 SaO2% (BldA) [Mass fraction] 97 % Milton Blake APRN-PAZ Work Phone: [facility] [employer] [facility] 08-10-2023 15:38-0500 Systolic blood pressure 140 mm[Hg] Milton Blake APRN-PAZ Work Phone: [facility] 02-04-2023 13:00-0400 Body temperature 98.2 [degF] MD Ru Johnson Jr Work Phone: [facility] 02-04-2023 13:00-0400 Diastolic blood pressure 69 mm[Hg] MD Ru Johnson Jr Work Phone: [facility] 02-04-2023 13:00-0400 Heart rate 66 /min MD Ru Johnson Jr Work Phone: [facility] 02-04-2023 13:00-0400 Respiratory rate 18 /min MD Ru Johnson Jr Work Phone: [facility] 02-04-2023 13:00-0400 SaO2% (BldA) [Mass fraction] 97 % MD Ru Johnson Jr Work Phone: [facility] 02-04-2023 13:00-0400 Systolic blood pressure 112 mm[Hg] MD Ru Johnson Jr Work Phone: [facility] 02-04-2023 08:00-0400 Inhaled oxygen flow rate 2 L/min MD Ru Johnson Jr Work Phone: [facility] 02-04-2023 06:00-0400 Body weight 189.9 kg MD Ru Johnson Jr Work Phone: [facility] 02-03-2023 04:09-0400 Body height 170.18 cm MD Ru Johnson Jr Work Phone: [facility] Encounters Encounter Date Encounter Type Care Provider Facility Start: 06-05-2024 End: 06-06-2024 Refill Milton Blake PUBLIC ADDRESS SYSTEM OPERATOR-CLOTH CHECKER [facility] Comment on above: Neuropathy Start: 05-05-2024 End: 05-22-2024 Telephone encounter Milton Blake PUBLIC ADDRESS SYSTEM OPERATOR-CLOTH CHECKER [facility] Start: 04-26-2024 End: 04-26-2024 Orders Only Milton Blake PUBLIC ADDRESS SYSTEM OPERATOR-CLOTH CHECKER Work Phone: [facility] Comment on above: Type 2 diabetes nori itus with hyperglycemia, without long-term current use of insulin ([facility] Start: 04-10-2024 End: 04-10-2024 ambulatory MILTONBELNÉ BLAKE [facility] Start: 10-04-2023 End: 10-04-2023 Office outpatient visit 25 minutes Milton Blake PUBLIC ADDRESS SYSTEM OPERATOR-CLOTH CHECKER Work Phone: [facility] Comment on above: Type 2 diabetes nori itus with hyperglycemia, without long-term current use of insulin ([facility]) (Primary Dx); Mixed hyperlipidemia; Bilateral lower extremity edema; Benign essential HTN; Osteoarthritis of multiple joints, unspecified osteoarthritis type; Itching Start: 10-04-2023 End: 10-04-2023 ambulatory [facility] Start: 08-31-2023 Orders Only Milton kim PUBLIC ADDRESS SYSTEM OPERATOR-CLOTH CHECKER [facility] Comment on above: Type 2 diabetes nori itus with hyperglycemia, without long-term current use of insulin ([facility]) Start: 08-30-2023 Refill Milton kim PUBLIC ADDRESS SYSTEM OPERATOR-CLOTH CHECKER [facility] Comment on above: Type 2 diabetes nori itus with hyperglycemia, without long-term current use of insulin ([facility]) Start: 08-11-2023 End: 08-11-2023 ambulatory [facility] Start: 08-10-2023 End: 08-10-2023 Office outpatient visit 40 minutes Milton Blake PUBLIC ADDRESS SYSTEM OPERATOR-CLOTH CHECKER Work Phone: [facility] Comment on above: Type 2 diabetes nori itus with hyperglycemia, without long-term current use of insulin ([facility]) (Primary Dx); Mixed anxiety and depressive disorder; Bilateral lower extremity edema; Benign essential HTN; Acute non-recurrent maxillary sinusitis; Osteoarthritis of multiple joints, unspecified osteoarthritis type; Mixed hyperlipidemia; Vitamin D deficiency; Upper respiratory tract infection, unspecified type Start: 08-10-2023 End: 08-10-2023 ambulatory [facility] Start: 07-31-2023 Refill Milton kim PUBLIC ADDRESS SYSTEM OPERATOR-CLOTH CHECKER Work Phone: [facility] Comment on above: Benign essential HTN ; Hypokalemia; Bilateral lower extremity edema Start: 02-03-2023 End: 02-04-2023 Evaluation and management of inpatient Milton Blake Facility:[facility] Start: 02-03-2023 End: 02-04-2023 Evaluation and management of inpatient MD Ru Johnson Jr Work Phone: [facility] Work Phone: Start: 09-29-2021 End: 09-29-[address] BRODIE LEONG Facility:[facility] Start: 07-13-2021 End: 08-13-2021 ambulatory DEANNA JAMES Facility:[facility] Start: 07-09-2021 End: 07-09-2021 ambulatory KATIE TEGAN Facility:[facility] Start: 04-18-2021 End: 07-11-[address] DOCTOR LUJAN Facility:[facility] Start: 03-25-2021 End: 03-26-2021 ambulatory ESTER LOPEZ Facility:[facility] Start: 12-27-2020 Patient encounter status Gibson barry Hayden PUBLIC ADDRESS SYSTEM OPERATOR-CLOTH CHECKER Work Phone: [employer] Work Phone: Start: 12-27-2020 Preoperative state Milton Philippe cadena PUBLIC ADDRESS SYSTEM OPERATOR-CLOTH CHECKER Work Phone: [employer] Start: 07-11-2014 End: 07-12-2014 Patient encounter procedure PATRICK BOYCEPTA Facility:[facility] Procedures Date Procedure Procedure Detail Performing Clinician Start: 04-10-2024 Adult depression screening assessment Milton Blake PUBLIC ADDRESS SYSTEM OPERATOR-CLOTH CHECKER Work Phone: Start: 10-04-2023 Follow-up visit Follow-up MILTON BLAKE Start: 10-04-2023 Adult depression screening assessment Milton Blake PUBLIC ADDRESS SYSTEM OPERATOR-CLOTH CHECKER Work Phone: Start: 08-10-2023 Hemoglobin glycosyla frida a1c Milton Blake PUBLIC ADDRESS SYSTEM OPERATOR-CLOTH CHECKER Work Phone: Start: 03-03-2023 Adult depression screening assessment Miltonbelén Blake PUBLIC ADDRESS SYSTEM OPERATOR-CLOTH CHECKER Work Phone: Start: 02-03-2023 CL AO [facility] [...] DTaP,Tdap and Td Vaccines (2 - Tdap) [facility] Start: 04-10-2025 Adult BMI Follow Up Plan Adult BMI Follow Up Plan [facility] Start: 04-10-2025 Adult BMI Screening Adult BMI Screening [facility] Start: 04-10-2025 Depression Screening Depression Screening [facility] Start: 04-10-2025 Tobacco Screening Tobacco Screening [facility] Start: 10-03-2024 Adult BMI Screening Adult BMI Screening [facility] Start: 10-03-2024 Depression Screening Depression Screening [facility] Start: 10-03-2024 Tobacco Screening Tobacco Screening [facility] Start: 09-27-2024 End: 09-27-2024 Patient encounter procedure 09/27/2024 3:20 PM EDT Office Visit [facility] [address] [place] [address] Milton Blake, PUBLIC ADDRESS SYSTEM OPERATOR-[facility] [address] [place] [address] [facility] Start: 08-11-2024 Tobacco Screening Tobacco Screening [facility] Start: 08-10-2024 Adult BMI Follow Up Plan Adult BMI Follow Up Plan [facility] Start: 08-10-2024 Adult BMI Screening Adult BMI Screening [facility] Start: 04-10-2024 End: 04-10-2024 Patient encounter procedure 04/10/2024 4:00 PM EDT Office Visit [facility] [address] [place] [address] Milton Blake, PUBLIC ADDRESS SYSTEM OPERATOR-CLOTH CHECKER [address] [place] [address] [facility] Start: 03-12-2024 COVID-19 Vaccine ( season) COVID-19 Vaccine ( season) [facility] Start: 03-12-2024 COVID-19 Vaccine ( season) COVID-19 Vaccine () [facility] Start: 03-12-2024 Influenza vaccination Influenza Vaccine [facility] Start: 03-03-2024 Adult BMI Follow Up Plan Adult BMI Follow Up Plan [facility] Start: 03-03-2024 Adult BMI Screening Adult BMI Screening [facility] Start: 03-03-2024 Depression Screening Depression Screening [facility] Start: 03-03-2024 Tobacco Screening Tobacco Screening [facility] Start: 11-10-2023 End: 11-10-2023 Patient encounter procedure 11/10/2023 3:30 PM EDT Office Visit [facility] [address] [place] [address] Milton Blake, PUBLIC ADDRESS SYSTEM OPERATOR-CLOTH CHECKER [address] [place] [address] [facility] Start: 08-02-2023 End: 08-02-2023 Patient encounter procedure 08/02/2023 3:30 PM EST Office Visit [facility] [address] [place] [address] Milton Blake, PUBLIC ADDRESS SYSTEM OPERATOR-CLOTH CHECKER [address] [place] [address] [facility] Start: 03-12-2023 COVID-19 Vaccine ( season) COVID-19 Vaccine () [facility] Start: 03-12-2023 Influenza vaccination Influenza Vaccine [facility] Start: 02-04-2023 [facility] Start: 02-03-2023 Hospital admission [facility] Start: 02-03-2023 Referral to cardiac rehabilitation program [facility] Start: 02-03-2023 [facility] Start: 01-19-2012 Administration of varicella zoster vaccine Zoster (Shingles) Vaccine (1 of 2) [facility] Start: 1983 Screening for malignant neoplasm of cervix Pap Smear [facility] Start: 01-19-1980 Diabetic foot examination [facility] Start: 1962 Glaucoma screening Diabetic Ophthalmology Exam [facility] Start: 1962 Urine screening for protein Urine Microalbumin [facility] Patient Education Heart Failure, Adult (DC) Coronary Angioplasty (DC) Coronary Stenting (DC) Angina (DC) Chest Pain (DC) Drug Eluting Stents [facility] Work Phone: Patient referral [facility] Work Phone: Immunizations Immunization Date Immunization Notes Care Provider Tsering esquivel 08-07-2020 COVID-19, mRNA, LNP- S, PF, 30mcg/0.3mL Dose Milton Blake PUBLIC ADDRESS SYSTEM OPERATOR-CLOTH CHECKER Work Phone: [facility] 07-17-2020 COVID-19, mRNA, LNP- S, PF, 30mcg/0.3mL Dose Milton Blake PUBLIC ADDRESS SYSTEM OPERATOR-CLOTH CHECKER Work Phone: [facility] 04-30-2020 diphtheria, tetanus toxoids and pertussis vaccine Milton Blake PUBLIC ADDRESS SYSTEM OPERATOR-CLOTH CHECKER Work Phone: [facility] 04-26-2009 novel Influenza-H1N1 -09, live virus for nasal administration Milton Blake PUBLIC ADDRESS SYSTEM OPERATOR-CLOTH CHECKER Work Phone: [facility] 04-26-2009 influenza virus vacc ine, unspecified formulation Milton Blake PUBLIC ADDRESS SYSTEM OPERATOR-CLOTH CHECKER Work Phone: [facility] Payers Date Payer Category Payer Private Health Insurance [facility] [id number] 2023 Unknown [id number] 2023 Self-pay [id number] 2021 Unknown [facility] [id number] 2021-Present [phone] [address] [address] [place] [address] [id number] 1962 Unknown [id number] .647 1960 Unknown [id number] .593 1962 Unknown [id number] .593 1962 Unknown [id number] 2.16.840.1.200009.3.579.2 .593 1962 Unknown [id number] [id number] .593 1962 Unknown [id number] [id number] .647 1962 Unknown [id number] 2.16.840.1.531407.3.579.2 .1286 1962 Unknown [id number] [id number] .1286 1962 Unknown [id number] 2.16.840.1.252423.3.579.2 .1286 1962 Unknown [id number] [id number] .1286 1957 Medicaid [id number] 1959 Unknown [id number] 1959 Unknown [id number] Medicaid [id number] Unknown [id number] .531 Worker's Compensation [id number] Social History Date Type Detail Facility Start: 02-03-2023 Tobacco smoking stat [facility] Smoker (finding) [facility] Start: 1960 Sex Assigned At Female F [facility] Start: 12-21-2022 End: 04-10-2024 Tobacco smoking status [facility] Ex-smoker [facility] History of tobacco use Cigarette Smoker P [facility] Start: 12-21-2022 End: 04-10-2024 Cigarettes smoked current (pack per day) - Reported 2 [facility] Start: 12-21-2022 End: 04-10-2024 Tobacco use and exposure Smokeless tobacco non-user [facility] Start: 03-03-2023 End: 04-10-2024 Alcohol intake Current drinker of alcohol (finding) [facility] Start: 03-03-2023 End: 04-10-2024 Tobacco use panel [facility] Adolescent depressio n screening assessment 0 [facility] Start: 01-20-2021 Alcohol Comment [facility] Start: 1960 Sex Assigned At Not on file P [facility] Start: 02-14-2015 Sex Female (finding) [facility] Procedure Code Equipment Code Equipment Origin al Text Equipment Identifier Dates CL STENT JOVANNI FRONTIER 5.0 X 26 FDA Start: 02-03-2023 Monitor blood ma gars twice daily [id number] Start: 03-03-2023 Monitor blood ma gars twice daily [id number] Start: 03-03-2023 Inject 1 Pen Nee dle into the skin in the morning. [id number] Start: 05-06-2023 Goals Date Patient Goal Desired Activity /State Functional Status Date Assessment Result Facility 02-04-2023 Functional status Patient at [facility] Work Phone: Mental Status Date Assessment Result Facility 02-04-2023 Cognitive function Cognitive Sta tus Patient at [facility] Work Phone: Clinical Notes 02-03-2023 to 05-05-2024 Telephone Encounter - Krystle Kirkpatrick - 05/05/2024 10:38 AM EDTTelephone Encounter - Krystle Kirkpatrick - 05/05/2024 10:38 AM EDTTelephone Encounter - Krystle Kirkpatrick - 05/05/2024 10:38 AM EDT Note Date & Type Note Facility 05-05-2024 Miscellaneous Notes Called for assistance picker tender LM on VM Picking up 05/22 documented in this encounter [facility] 05-05-2024 Telephone encounter Note [facility] 05-05-2024 Telephone encounter Note LM on VM [facility] 05-05-2024 Telephone encounter Note Picking up 05/22 LD [facility] [employer] 10-04-2023 History of Presen t illness Narrative Images from the original note were not included. [address] [place] [id number] SUBJECTIVE: Patient ID: Francisca Kumar is a [...] provides significant improvement. Hypertensive end-organ damage includes CAD/RI and left ventricular hypertrophy. Diabetes Follow up. [...] 01/27/2021 Performed by Mckenna Pena MD at [facility] CARDIAC CATH LABS CORONARY ANGIOPLASTY WITH STENT PLACEMENT CORONARY ANGIOPLASTY WITH STENT PLACEMENT 02/03/2023 Coronary fractional flow reserve N/A 01/27/2021 Performed by Mckenna Pena MD at [facility] CARDIAC CATH LABS DILATION AND CURETTAGE OF UTERUS KNEE SURGERY Left ventriculogram or left ventricular pressure only N/A 01/27/2021 Performed by Mckenna Pena MD at [facility] CARDIAC CATH LABS Past Medical History: Diagnosis Date Allergic Arthritis Back pain CAD (coronary artery disease) Chest pain CHF (congestive heart failure) ([facility]) Depression Depression GERD (gastroesophageal reflux disease) History of DVT (deep vein thrombosis) Hyperlipidemia Hypertension Meniscal injury right Myocardial infarction ([facility]) Obesity Osteoporosis Vitamin D deficiency Immunization [...] hyperglycemia, without long-term current use of insulin ([facility]) - Discontinue: semaglutide (OZEMPIC) 0.25 mg or [...] Kelly 10/04/23 1710 documented in this [facility] History of Presen t illness Narrative Images from the original note were not included. [address] [facility] [address] SUBJECTIVE: Patient ID: Francisca Kumar is a [...] provides significant improvement. Hypertensive end-organ damage includes CAD/RI and left ventricular hypertrophy. Diabetes She presents [...] 01/27/2021 Performed by Mckenna Pena MD at [facility] CARDIAC CATH LABS CORONARY ANGIOPLASTY WITH STENT PLACEMENT CORONARY ANGIOPLASTY WITH STENT PLACEMENT 02/03/2023 Coronary fractional flow reserve N/A 01/27/2021 Performed by Mckenna Pena MD at [facility] CARDIAC CATH LABS DILATION AND CURETTAGE OF UTERUS KNEE SURGERY Left ventriculogram or left ventricular pressure only N/A 01/27/2021 Performed by Mckenna Pena MD at [facility] CARDIAC CATH LABS Past Medical History: Diagnosis Date Allergic Arthritis Back pain CAD (coronary artery disease) Chest pain CHF (congestive heart failure) ([facility]) Depression Depression GERD (gastroesophageal reflux disease) History of DVT (deep vein thrombosis) Hyperlipidemia Hypertension Meniscal injury right Myocardial infarction ([facility]) Obesity Osteoporosis Vitamin D deficiency Immunization History [...] hyperglycemia, without long-term current use of insulin ([facility]) - POCT Hemoglobin A1c - liraglutide [...] throat. Motrin or Tylenol as needed per principal bioinformatics specialist guidelines for fever or pain. -Start Zpak, [...] Kelly 08/11/23 1037 documented in this encounter [facility] [employer] 02-04-2023 Hospital Discharg e instructions Additional Instructions [...] doctor or pharmacist, without first calling the warehouse delivery manager who implanted the stent. If you require [...] weight lifting, stair steppers, etc. until the warehouse delivery manager approves these activities. Check with the warehouse delivery manager on your first follow-up visit. CALL YOUR PHYSICIAN at [phone]: -If bleeding should occur from the catheter insertion site- apply pressure to the site then immediately call us. -Report any fever, redness, drainage, increased swelling, or firmness at the catheter insertion site. Some bruising or slight swelling may be present at the time of discharge. -Should arm or leg become cold, numb, white, or blue, contact the warehouse delivery manager immediately. -IF you should experience episodes of [...] is recommended. Please call Central Scheduling at [phone] to schedule your appointment.] The attending warehouse delivery manager or [facility] nurse clinician should provide you with specific instructions regarding activity, diet, medications, and further follow up for you. Follow the medication instructions provided on your discharge. If the dosages and instructions on this sheet differ from the dosage and instructions on the bottle, follow the instructions on the bottle. [facility] is not responsible for incorrect prescription information provided by the patient during their visit. Do not stop your medications without consulting your health care provider. Please take the list with you to your next doctor's appointment. [facility] Work Phone: 02-03-2023 History and physi denise note Note Date/Time February 03, 2023 2:09am [facility] [address] [place] [address] Cardiology H&P Signed Patient: Francisca Kumar MR#: [id number] : 1960 Acct:[id number] Age/Sex: 63 / F Adm Date: 3 Loc: CL Room: Type: [facility] Attending Dr: Jesse Lombardo DO Copies to: NON STAFF Jesse Lombardo DO~ Date of Service: 02/03/2023 Cardiology HPI History of Present Illness Chief complaint: Inferolateral STEMI HPI: Ms. Kumar is a 63 year old female admitted in transfer from [facility] with acute onset angina earlier this evening, ECG transmitted by [facility] to [facility] and to my phone directly revealing acute inferolateral ST elevation injury current. Patient arrived and received appropriate upstream antithrombotic and antiplatelet therapy is under my direction, and was transferred to the Stewardess Supervisor for emergent intervention. Patient arrived in ER at 0130, Stewardess Supervisor at 0155 after receiving appropriate upstream antithrombotic [...] and no additional complaints, except as documented [facility] Medical History (Updated 02/03/23 @ [...] x10E3/uL Lymph # (Auto) 2.0 (1.00-4.8) x10E3/uL [place] # (Auto) 0.6 (0.0-0.8) x10E3/uL Eos # (Auto) 0.3 (0.0-0.45) x10E3/uL Baso # (Auto) 0.1 (0.0-0.2) x10E3/uL Intake and Output 02/02/23 02/02/23 02/03/23 15:59 23:59 07:59 Other: Weight 187.8 kg Patient Weight 02/03/23 23:59 Weight 187.8 kg Lab 02/03/23 01:41 PT 10.3 INR 0.9 EKG Interpretations EKG EKG results cardiology: sinus rhythm EKG shows: tachycardia RI, pacemaker, normal Myocardial infarction: inferior RI (acute or recent) A&P - Cardiology (1) [...] <Electronically signed by Jesse Lombardo DO> 02/03/23302 [facility] Work Phone: 1(255) 880-894307-26-2023 [facility] note[facility] CampusDischarge summary Author Jesse Lombardo [facility] February 04, 2023 5:03pm Note Date/Time February 04, 2023 5:02 pm [facility] [address] [place] [address] Discharge Summary Signed Patient: Francisca Kumar MR#: [id number] : 1960 Acct:[id number] Age/Sex: 63 / F Adm Date: 3 Loc: Room: [address] [place] [address]: Jesse Lombardo DO Copies to: [...] proximal circumflex with 5 x 26 mm [place] stent 4. History of PCI LAD with [...] % (Auto) 64.2, Lymph % (Auto) 23.8, [place] % (Auto) 7.0, Eos % (Auto) 4.3, Baso % (Auto) 0.7, Nucleat RBC Rel Count 0.1, Neut # (Auto) 6.3, Lymph # (Auto) 2.3, [place] # (Auto) 0.7, Eos # (Auto) 0.4, Baso # (Auto) 0.1 02/03/23 18:37: Troponin I High Sens 71161.0 H* Exam Physical Exam Vital Signs: Temp [...] doctor or pharmacist, without first calling the warehouse delivery manager who implanted the stent. If you require [...] weight lifting, stair steppers, etc. until the warehouse delivery manager approves these activities. Check with the warehouse delivery manager on your first follow-up visit. CALL YOUR PHYSICIAN at [phone]: -If bleeding should occur from the catheter insertion site- apply pressure to the site then immediately call us. -Report any fever, redness, drainage, increased swelling, or firmness at the catheter insertion site. Some bruising or slight swelling may be present at the time of discharge. -Should arm or leg become cold, numb, white, or blue, contact the warehouse delivery manager immediately. -IF you should experience episodes of [...] is recommended. Please call Central Scheduling at [phone] to schedule your appointment.] The attending warehouse delivery manager or [facility] nurse clinician should provide you with specific instructions regarding activity, diet, medications, and further follow up for you. Follow the medication instructions provided on your discharge. If the dosages and instructions on this sheet differ from the dosage and instructions on the bottle, follow the instructions on the bottle. [facility] is not responsible for incorrect prescription information [...] signed by Jesse Lombardo DO> 02/04/23 1703 [facility] Work Phone: Evaluation note* Diagnosis Onset Date Resolution Status Accelerated hypertension acu te Arthritis acute Femoral vein thrombosis, right acute H/O heart artery stent acute Morbid obesity acute ST elevation myocardial infa rction (STEMI) of inferior wall acute [facility] Work Phone: Evaluation note* Diagnosis Benign essential HTN Hypokalemia Hypopotassemia Bilateral lower extremity edema Type 2 diabetes mellitus with hyperglycemia, without long-term current use of insulin ([facility])- Primary documented in this encounter [facility]* Diagnosis Type 2 diabetes mellitus with hyperglycemia, without long-term current use of insulin ([facility])- Primary Mixed anxiety and depressive disorder Dysthymic disorder Bilateral lower extremity edema Benign essential HTN Acute non-recurrent maxillary sinusitis Osteoarthritis of multiple joints, unspecified osteoarthritis type Mixed hyperlipidemia Vitamin D deficiency Upper respiratory tract infection, unspecified type documented [facility]* Diagnosis Type 2 diabetes mellitus with hyperglycemia, without long-term current use of insulin ([facility]) [facility] Diagnosis Type 2 diabetes mellitus with hyperglycemia, without long-term current use of insulin ([facility]) documented in this encounter [facility]* Diagnosis Type 2 diabetes mellitus with hyperglycemia, without long-term current use of insulin ([facility])- Primary Mixed hyperlipidemia Bilateral lower extremity edema Benign essential HTN Osteoarthritis of multiple joints, unspecified osteoarthritis type Itching Unspecified pruritic disorder documented in this encounter [facility]* Diagnosis Type 2 diabetes mellitus with hyperglycemia, without long-term current use of insulin ([facility]) documented in this encounter [facility]* Diagnosis Neuropathy Mononeuritis of unspecified site documented in this encounter [facility] SystemInstructionsNot on filedocumented in this encounter [facility] SystemInstructions* Attachments The following attachments cannot be sent through Care Everywhere. * Sinusitis in adults (Ukrainian) documented in this [facility] SystemInstructionsNot on file documented in this encounterProUniversity [facility] St[facility] SystemInstructionsNot on file documented in [facility] encounterW[facility] SystemInstructions* Attachments The following attachments cannot be sent through Care Everywhere. * Coronary artery disease (Ukrainian) documented in [facility] encounter[facility] SystemInstructionsNot on file documented in [facility] Summary Purpose Family History Relationship [...] Mixed anxiety and depressive disorder Milton Blake, PUBLIC ADDRESS SYSTEM OPERATOR-CLOTH CHECKER [address] [place] [address] Referral ID Status Reason Start Date Expiration Date V isits Requested Visits Authorized [id number] Pending Review 1 1 Additional Source Comments INFORMATION SOURCE (unrecogn ized section and content) DATE CREATED AUTHOR 02/19/2019 [facility] DATE CREATED AUTHOR AUTHOR'S ORGANIZ ATION 12/03/2021 [facility] DATE CREATED AUTHOR AUTHOR'S ORGANIZ ATION 12/24/2021 [facility] DATE CREATED AUTHOR AUTHOR'S ORGANIZ ATION 03/11/2023 [facility] DATE CREATED AUTHOR AUTHOR'S ORGANIZ ATION 08/15/2023 [facility] DATE CREATED AUTHOR AUTHOR'S ORGANIZ ATION 04/11/2024 [facility] Care Teams (unrecognized sec tion and content) Team Status: Active Member Role Status Dates Milton Blake , SPEAR FISHER-C Primary Care Provider Active Team Status: Inactive Member Role Status Dates Ru Johnson Jr, MD Emergency Provider Active W Real Lombardo , Admit Provider, Attending Provide r Active Milton Blake , SPEAR FISHER-C Primary Care Provider Active Nurse Staff Industrial Relationship Specialty Start Date End Date Milton Blake APRN-CLOTH CHECKER [address] [place] [address] PCP - General Family Medicine 12/21/22 Nurse Staff Industrial Relationship Specialty Start Date End Date Milton Blake APRN-CLOTH CHECKER [address] [place] [address] PCP - General Family Medicine 12/21/22 Nurse Staff Industrial Relationship Specialty Start Date End Date Milton Blake APRN-PAZ [address] [place] [address] PCP - General Family Medicine 12/21/22 Nurse Staff Industrial Relationship Specialty Start Date End Date Milton Blake APRN-CLOTH CHECKER [address] [place] [address] PCP - General Family Medicine 12/21/22 Nurse Staff Industrial Relationship Specialty Start Date End Date Celia Blakee AlenaRAMON-PAZ [address] [place] [address] PCP - General Family Medicine 12/21/22 Nurse Staff Industrial Relationship Specialty Start Date End Date Milton BlakeRAMONCLOTH CHECKER [address] [place] [address] PCP - General Family Medicine 12/21/22 Nurse Staff Industrial Relationship Specialty Start Date End Date Milton BlakeRAMONCLOTH CHECKER [address] [place] [address] PCP - General Family Medicine 12/21/22 Reason [...] BE BASED ON THE PRIMARY CLINICAL RECORDS. [facility] [employer] provides no warranty or guarantee of the accuracy or completeness of information in this document.
[2024-08-18 17:48] VITALS: BP 200/92; PULSE 73; TEMP 36.8; O2SAT 97; BMI 47.0
--- NOTE | 2024-08-18 18:42 | XR_ITS ---
The [address] [address] Patient Name: TABBY VENCES MRN: [id number] date: 1960 Sex: F Assigned Patient Location: ER Current Patient Location: ED.MAIN Accession/Order Number: [id number] Exam Date: 08/18/2024 18:32 Report Date: 08/18/2024 19:39 At the request of: ARLEN LITTLE Procedure: XR ankle LT min 3V EXAM: XR ankle LT min 3V TECHNIQUE: AP, lateral and oblique views left ankle HISTORY: ankle injury COMPARISON: None. FINDINGS: No acute fracture or dislocation. Chronic deformities of the distal fibula and distal tibia. Ankle mortise is aligned. Moderate-sized dorsal and plantar calcaneal spurs. Soft tissue swelling anteriorly and laterally. XR/XR ankle LT min 3V IMPRESSION: No acute fracture or dislocation. Electronically authenticated by: RODNEY PEREZ Date: 08/18/2024 19:39
--- NOTE | 2024-08-18 18:42 | XR_ITS ---
The [address] [address] Patient Name: TABBY VENCES MRN: [id number] date: 1960 Sex: F Assigned Patient Location: ER Current Patient Location: ER Accession/Order Number: [id number] Exam Date: 08/18/2024 18:32 Report Date: 08/18/2024 18:56 At the request of: ARLEN LITTLE Procedure: XR wrist LT min 3V EXAM: XR wrist LT min 3V HISTORY: pain, fall COMPARISON: None. TECHNIQUE: 3 views of left wrist were obtained. FINDINGS: There is no evidence of an acute fracture or dislocation. There is mild to moderate narrowing of the first carpometacarpal joint accompanied by small osteophytes. The joint space are otherwise intact throughout the wrist. Ulnar minus variance is present. The soft tissues are intact. XR/XR wrist LT min 3V IMPRESSION: No acute fracture or dislocation. Some degenerative changes are present at the first carpometacarpal joint, and the joint spaces are otherwise intact. Electronically authenticated by: MARGARETTE BURKS Date: 08/18/2024 18:56
--- NOTE | 2024-08-18 18:42 | XR_ITS ---
The [address] [address] Patient Name: TABBY VENCES MRN: [id number] date: 1960 Sex: F Assigned Patient Location: ER Current Patient Location: ER Accession/Order Number: [id number] Exam Date: 08/18/2024 18:32 Report Date: 08/18/2024 19:44 At the request of: ARLEN LITTLE Procedure: XR knee LT 3V EXAM: XR knee LT 3V HISTORY: pain, fall COMPARISON: None. TECHNIQUE: 3 view left knee FINDINGS: Normal bone mineralization. No fracture. No lytic or blastic lesion. No joint effusion. Small superior patellar enthesopathy and small enthesophyte at distal patellar tendon insertion on tibia. Well-preserved joints without narrowing or dislocation. XR/XR knee LT 3V IMPRESSION: No acute bone or joint findings. Electronically authenticated by: TIKI OLIVO Date: 08/18/2024 19:44
--- NOTE | 2024-08-18 19:12 | ED_ITS ---
HPI HPI - General Adult General Chief complaint: Extremity Injury, Lower Stated complaint: FALL Time Seen by Provider: 08/18/24 18:25 Mode of arrival: walk-in History of Present Illness HPI narrative: 64-year-old female to the emergency department chief complaint of injury to her left ankle, knee and wrist. Patient reports she stepped out of her vehicle and rolled her left ankle. This caused pain in her ankle and her knee. She caught her self with her left arm and has pain in her left wrist. Did not fall the ground. She not hit her head or lose consciousness. She denies any neck or back pain. She is otherwise at her baseline health. She is not anticoagulated. Related Data Home Medications ?Medication ?Instructions ?Recorded ?Confirmed atorvastatin 40 mg tablet 40 mg PO .qd 06/09/24 06/10/24 furosemide 40 mg tablet 40 mg PO .24hr 06/09/24 06/09/24 gabapentin 100 mg capsule 100 mg PO Q8H 06/09/24 06/09/24 hydroxyzine HCl 10 mg tablet 10 mg PO Q8H PRN itching 06/09/24 06/10/24 losartan 25 mg tablet 25 mg PO .qd 06/09/24 06/10/24 meloxicam 15 mg tablet 15 mg PO .qd 06/09/24 06/10/24 metoprolol succinate 25 mg 25 mg PO .qd 06/10/24 06/10/24 tablet,extended release 24 hr potassium chloride 10 mEq 10 meq PO .qd 06/10/24 06/10/24 tablet,extended release Previous Rx's ?Medication ?Instructions ?Recorded aspirin 81 mg chewable tablet 81 mg PO DAILY #30 tabs 06/10/24 (Aspirin Childrens) doxycycline hyclate 100 mg tablet 100 mg PO BID 7 days #14 tabs 06/10/24 Allergies Allergy/AdvReac Type Severity Reaction Status Date / Time latex Allergy Mild itching Verified 06/09/24 21:31 diphenhydramine (From AdvReac Severe Anaphylaxis Verified 06/09/24 21:31 Benadryl) lisinopril AdvReac Severe Cough Verified 06/09/24 21:31 Opioid HPI Opioid Management Most Recent Opioid Data: Last Pain Scale 8 08/18/24 18:32 08/18/24 Last ORT Total Score 1 06/09/24 21:25 06/09/24 Last ORT Risk Category Low Risk 06/09/24 21:25 06/09/24 Review of Systems ROS Status of ROS 10 or more systems reviewed and unremark able except as noted in h istory and below [facility] Medical History (Updated 08/18/24 @ 19:20 by Adonay Quintanilla MD) Right middle lobe pneumonia ?J18.9 - Pneumonia, unspecified organism (ICD-10) Morbid obesity ?E66.01 - Morbid (severe) obesity due to excess calories (ICD-10) HLD (hyperlipidemia) ?E78.5 - Hyperlipidemia, unspecified (ICD-10) History of left heart catheterization ?Z98.890 - Other specified postprocedural states (ICD-10) Lateral meniscus tear ?S83.289A - Other tear of lateral meniscus, current injury, unspecified knee, initial encounter (ICD-10) Numbness and tingling ?R20.0 - Anesthesia of skin (ICD-10) ?R20.2 - Paresthesia of skin (ICD-10) Hypertension ?I10 - Essential (primary) hypertension (ICD-10) High cholesterol ?E78.00 - Pure hypercholesterolemia, unspecified (ICD-10) Congestive heart failure ?I50.9 - Heart failure, unspecified (ICD-10) Prediabetes ?R73.03 - Prediabetes (ICD-10) Arthritis ?M19.90 - Unspecified osteoarthritis, unspecified site (ICD-10) STEMI (ST elevation myocardial infarction) ?I21.3 - ST elevation (STEMI) myocardial infarction of unspecified site (ICD- 10) Social History (Updated 06/10/24 @ 12:36 by Shaikh Berenice MD) Within the past year, how often did you have a drink containing alcohol: never Within the past year, how many standard drinks containing alcohol did you have on a typical day: 1 or 2 Within the past year, how often did you have six or more drinks on one occasion: never Total score: 0 Score interpretation: A score less than 3 is consistent with normal alcohol consumption. Smoking status: Current every day smoker Non-prescribed substance use: denies use Highest level of school completed/degree received: high school graduate Little interest or pleasure in doing things: not at all Feeling down, depressed, or hopeless: not at all Exam Narrative Exam Narrative: VITALS: I have reviewed the triage vital signs. GENERAL: Well developed, well appearing adult in no acute distress. NEURO: Alert and oriented. Moves all extremities. Face is symmetric and exp ressive. EYES: PERRL. No scleral icterus or conjunctival injection. No discharge. HENT: Normocephalic, atraumatic. Hearing is grossly intact. Nares grossly patent and without discharge. Mucous membranes moist. NECK: No JVD. Patient moves neck without restriction. No midline cervical tenderness CARDIO: Rhythm regular. Normal rate. No murmur, rub, or gallop. Pulses equal bilaterally in the upper and lower extremity. No lower extremity edema. PULM: Lungs clear to auscultation in all [place]. No wheezes, rales, or rhonchi. No conversational dyspnea. No splinting, stridor, or accessory muscle use. GI/: Abdomen is soft and non-tender. Normoactive bowel sounds. Left lower extremity: There is tenderness over the lateral malleolus. There is no deformity DP and PT pulses are intact. Sensation intact over the foot. Compartments are soft. She has tenderness over the fibular head. Left upper extremity: There is tenderness diffusely over the wrist. There is no deformity. Radial pulses intact. Motor Teacher strength/finger abduction adduction are intact SKIN: Warm and dry. Normal turgor. No rash or lesions appreciated. PSYCH: Mood, affect, and interaction is appropriate to the setting. Constitutional Vital Signs, click to edit/add: Last Vital Signs Temp 98.2 F 08/18/24 17:48 Pulse 73 08/18/24 17:48 Resp 18 08/18/24 17:48 BP 200/92 H 08/18/24 17:48 Pulse Ox 97 08/18/24 17:48 O2 Del Method Room Air 08/18/24 17:48 Course Vital Signs Vital signs: Vital Signs Temperature 98.2 F 08/18/24 17:48 Pulse Rate 73 08/18/24 17:48 Respiratory Rate 18 08/18/24 17:48 Blood Pressure 200/92 H 08/18/24 17:48 Pulse Oximetry 97 08/18/24 17:48 Oxygen Delivery Method Room Air 08/18/24 17:48 Temperature 98.2 F 08/18/24 17:48 Pulse Rate 73 08/18/24 17:48 Respiratory Rate 18 08/18/24 17:48 Blood Pressure 200/92 H 08/18/24 17:48 Pulse Oximetry 97 08/18/24 17:48 Oxygen Delivery Method Room Air 08/18/24 17:48 Medical Decision Making MDM Narrative Medical decision making narrative: 64-year-old female to the emergency department chief complaint of injuries to her ankle, knee and wrist after stepping out of her vehicle and rolling her ankle. Vital stable, the patient is afebrile. Her head and cervical spine are cleared clinically. X-ray imaging of her wrist, knee and ankle are ordered. Care was signed out to Dr. Rodriguez with results of x-ray imaging pending. Discharge Plan Discharge Chief Complaint: Extremity Injury, Lower Clinical Impression: Ankle pain Patient Disposition: Still a Patient Time of Disposition Decision: 19:20 Condition: Good Prescriptions / Home Meds: No Action furosemide 40 mg tablet 40 mg PO .24hr atorvastatin 40 mg tablet 40 mg PO .qd gabapentin 100 mg capsule 100 mg PO Q8H hydroxyzine HCl 10 mg tablet 10 mg PO Q8H PRN (Reason: itching) meloxicam 15 mg tablet 15 mg PO .qd losartan 25 mg tablet 25 mg PO .qd metoprolol succinate 25 mg tablet extended release 24 hr 25 mg PO .qd potassium chloride 10 mEq tablet extended release 10 meq PO .qd aspirin [Aspirin Childrens] 81 mg tablet,chewable 81 mg PO DAILY Qty: 30 0RF doxycycline hyclate 100 mg tablet 100 mg PO BID 7 Days Qty: 14 0RF Print Language: [place] Referrals: MILTON GODDARD [Primary Care Provider] - 1 week
--- NOTE | 2024-08-18 19:56 | ED_ITS ---
HPI HPI - Extremity Injury (Lower) General Chief Complaint: Extremity Injury, Lower Stated Complaint: FALL Time Seen by Provider: 08/18/24 18:25 Mode of arrival: walk-in History of Present Illness HPI Narrative: 64-year-old female presented to the emergency department and was initially seen by Dr. Quintanilla and signed out to me after discussing the case with him thoroughly. Please see his full history and physical exam. Related Data Home Medications ?Medication ?Instructions ?Recorded ?Confirmed atorvastatin 40 mg tablet 40 mg PO .qd 06/09/24 06/10/24 furosemide 40 mg tablet 40 mg PO .24hr 06/09/24 06/09/24 gabapentin 100 mg capsule 100 mg PO Q8H 06/09/24 06/09/24 hydroxyzine HCl 10 mg tablet 10 mg PO Q8H PRN itching 06/09/24 06/10/24 losartan 25 mg tablet 25 mg PO .qd 06/09/24 06/10/24 meloxicam 15 mg tablet 15 mg PO .qd 06/09/24 06/10/24 metoprolol succinate 25 mg 25 mg PO .qd 06/10/24 06/10/24 tablet,extended release 24 hr potassium chloride 10 mEq 10 meq PO .qd 06/10/24 06/10/24 tablet,extended release Previous Rx's ?Medication ?Instructions ?Recorded aspirin 81 mg chewable tablet 81 mg PO DAILY #30 tabs 06/10/24 (Aspirin Childrens) doxycycline hyclate 100 mg tablet 100 mg PO BID 7 days #14 tabs 06/10/24 Allergies Allergy/AdvReac Type Severity Reaction Status Date / Time latex Allergy Mild itching Verified 06/09/24 21:31 diphenhydramine (From AdvReac Severe Anaphylaxis Verified 06/09/24 21:31 Benadryl) lisinopril AdvReac Severe Cough Verified 06/09/24 21:31 Opioid HPI Opioid Management Most Recent Pain and Opioid Data: Last Pain Scale 8 08/18/24 18:32 08/18/24 Last ORT Total Score 1 06/09/24 21:25 06/09/24 Last ORT Risk Category Low Risk 06/09/24 21:25 06/09/24 [facility] Medical History (Updated 08/18/24 @ 19:56 by Ang Rodriguez MD) Right middle lobe pneumonia ?J18.9 - Pneumonia, unspecified organism (ICD-10) Morbid obesity ?E66.01 - Morbid (severe) obesity due to excess calories (ICD-10) HLD (hyperlipidemia) ?E78.5 - Hyperlipidemia, unspecified (ICD-10) History of left heart catheterization ?Z98.890 - Other specified postprocedural states (ICD-10) Lateral meniscus tear ?S83.289A - Other tear of lateral meniscus, current injury, unspecified knee, initial encounter (ICD-10) Numbness and tingling ?R20.0 - Anesthesia of skin (ICD-10) ?R20.2 - Paresthesia of skin (ICD-10) Hypertension ?I10 - Essential (primary) hypertension (ICD-10) High cholesterol ?E78.00 - Pure hypercholesterolemia, unspecified (ICD-10) Congestive heart failure ?I50.9 - Heart failure, unspecified (ICD-10) Prediabetes ?R73.03 - Prediabetes (ICD-10) Arthritis ?M19.90 - Unspecified osteoarthritis, unspecified site (ICD-10) STEMI (ST elevation myocardial infarction) ?I21.3 - ST elevation (STEMI) myocardial infarction of unspecified site (ICD- 10) Social History (Updated 06/10/24 @ 12:36 by Shaikh Berenice MD) Within the past year, how often did you have a drink containing alcohol: never Within the past year, how many standard drinks containing alcohol did you have on a typical day: 1 or 2 Within the past year, how often did you have six or more drinks on one occasion: never Total score: 0 Score interpretation: A score less than 3 is consistent with normal alcohol consumption. Smoking status: Current every day smoker Non-prescribed substance use: denies use Highest level of school completed/degree received: high school graduate Little interest or pleasure in doing things: not at all Feeling down, depressed, or hopeless: not at all Exam Constitutional Vital Signs, click to edit/add: Last Vital Signs Temp 98.2 F 08/18/24 17:48 Pulse 73 08/18/24 17:48 Resp 18 08/18/24 17:48 BP 200/92 H 08/18/24 17:48 Pulse Ox 97 08/18/24 17:48 O2 Del Method Room Air 08/18/24 17:48 Course Vital Signs Vital signs: Vital Signs Temperature 98.2 F 08/18/24 17:48 Pulse Rate 73 08/18/24 17:48 Respiratory Rate 18 08/18/24 17:48 Blood Pressure 200/92 H 08/18/24 17:48 Pulse Oximetry 97 08/18/24 17:48 Oxygen Delivery Method Room Air 08/18/24 17:48 Temperature 98.2 F 08/18/24 17:48 Pulse Rate 73 08/18/24 17:48 Respiratory Rate 18 08/18/24 17:48 Blood Pressure 200/92 H 08/18/24 17:48 Pulse Oximetry 97 08/18/24 17:48 Oxygen Delivery Method Room Air 08/18/24 17:48 MDM - Extremity Injury (Lower) MDM Narrative Medical decision making narrative: X-rays of wrist, ankle, and knee are all negative. She is ambulatory. Ravi wrap applied to ankle, application checked by me and found to be appropriate, she is neurovascular intact. Treatment diagnosis and follow-up were discussed with the patient. Differential Diagnosis Differential diagnosis: Likely ankle sprain and strain, ankle fracture and other (Wrist fracture, wrist sprain, knee sprain, knee fracture) Imaging Data Left wrist, ankle, knee: Radiologist's impression: ITS Impressions Ankle X-Ray 08/18/24 18:42 IMPRESSION: No acute fracture or dislocation. Electronically authenticated by: RODNEY PEREZ Date: 08/18/2024 19:39 Knee X-Ray 08/18/24 18:42 IMPRESSION: No acute bone or joint findings. Electronically authenticated by: TIKI OLIVO Date: 08/18/2024 19:44 Wrist X-Ray 08/18/24 18:42 IMPRESSION: No acute fracture or dislocation. Some degenerative changes are present at the first carpometacarpal joint, and the joint spaces are otherwise intact. Electronically authenticated by: MARGARETTE BURKS Date: 08/18/2024 18:56 Discharge Plan Discharge Chief Complaint: Extremity Injury, Lower Clinical Impression: Left ankle sprain, Left wrist sprain Patient Disposition: Home, Self-Care Time of Disposition Decision: 19:55 Condition: Good Mode of Transportation: Private Vehicle Prescriptions / Home Meds: No Action furosemide 40 mg tablet 40 mg PO .24hr atorvastatin 40 mg tablet 40 mg PO .qd gabapentin 100 mg capsule 100 mg PO Q8H hydroxyzine HCl 10 mg tablet 10 mg PO Q8H PRN (Reason: itching) meloxicam 15 mg tablet 15 mg PO .qd losartan 25 mg tablet 25 mg PO .qd metoprolol succinate 25 mg tablet extended release 24 hr 25 mg PO .qd potassium chloride 10 mEq tablet extended release 10 meq PO .qd aspirin [Aspirin Childrens] 81 mg tablet,chewable 81 mg PO DAILY Qty: 30 0RF doxycycline hyclate 100 mg tablet 100 mg PO BID 7 Days Qty: 14 0RF Print Language: Mauritian Instructions: Ankle Sprain (ED), Wrist Sprain (ED) Referrals: MILTON GODDARD [Primary Care Provider] - 1 week
[2024-08-18 20:04] VITALS: BP 169/89; PULSE 56; O2SAT 97
== END 2024-08-18 20:04 | disposition home or self-care (01) ==
PROVIDERS: Emergency Provider Emergency Medicine; PCP Nurse Practitioner
DX: S93.402A Sprain of unspecified ligament of left ankle, initial encounter (principal); S63.502A Unspecified sprain of left wrist, initial encounter; F17.200 Nicotine dependence, unspecified, uncomplicated; X50.1XXA Overexertion from prolonged static or awkward postures, initial encounter
CPT/HCPCS: 73110; 73562; 73610; 99284